=== PATIENT | female | born 2000 | race Caucasian/White ===

== ENCOUNTER 2019-08-09 08:26 | Emergency (ER) | payer MEDICAID, SELFPAY ==
[2019-08-09] VITALS (7 sets, daily range): BP systolic 110–130; BP diastolic 63–87; PULSE 59–89; RESP 16–18; O2SAT 100
--- NOTE | 2019-08-09 08:29 | ED.NAVMDI ---
HPI - Nausea/Vomiting/Diarrhea General Chief complaint: Nausea/Vomiting/Diarrhea Stated complaint: vomiting Time Seen by Provider: 08/09/19 08:29 History of Present Illness HPI Narrative: 19 yo female w/ h/o bicuspid aortic valve presents with nausea and vomiting. She reports feeling nauseated for the past 3 days. Started vomiting this morning. This is associated with a feeling of pressure in the lower abdomen. These are new symptoms. No fever, dysuria, hematuria, vaginal discharge. Related Data Allergies Allergy/AdvReac Type Severity Reaction Status Date / Time latex Allergy Unknown Verified 08/09/19 08:36 Review of Systems Review of Systems: All systems reviewed & are unremarkable except as noted in HPI and below Constitutional: Constitutional: Denies fever(s) Cardiovascular: Cardiovascular: Denies chest pain Respiratory: Respiratory: Denies dyspnea Gastrointestinal: Gastrointestinal: Reports constipation, Reports nausea and Reports vomiting Genitourinary: Genitourinary: Denies hematuria, Denies dysuria and Denies vaginal discharge Neurologic: Denies dizziness and Denies weakness PMFSH Past Medical History Medical History (Updated 08/09/19 @ 10:29 by Stuart Gabriel MD) Bicuspid aortic valve Social History Social History (Updated 08/09/19 @ 08:45 by Stuart Gabriel MD) Smoking status: Never smoker Gender identity (if verbalized by the patient): Female Exam Const: General: healthy appearing, no acute distress and alert Nutritional Appearance: well nourished Orientation/consciousness: patient oriented x3 HENMT: Head: normal to inspection Resp: Effort & Inspection: normal respiratory effort Auscultation: clear to auscultation bilaterally, no rales, no rhonchi and no wheezes Cardio: Jugular venous distension: no JVD Rate: regular rate Rhythm: regular rhythm Heart sounds: Murmur heart sound present systolic GI: Inspection: non-distended GI Palp: Yes Soft to palpation and No Tenderness to palpation present (GI) Auscultation: normal bowel sounds Skin: General skin exam: normal color Neuro: General: patient oriented x3, moves all extremities and CN's II-XI intact bilaterally Speech: normal speech Extrem: General: normal to inspection Psych: Appearance: well kempt Affect: Anxious affect present Course Vital Signs Vital signs: Vital Signs Pulse Rate 89 08/09/19 08:31 Respiratory Rate 18 08/09/19 08:31 Blood Pressure 118/87 08/09/19 08:31 Pulse Oximetry 100 08/09/19 08:31 Pulse Rate 59 L 08/09/19 10:35 Respiratory Rate 16 08/09/19 10:35 Blood Pressure 110/70 08/09/19 10:35 Pulse Oximetry 100 08/09/19 10:35 MDM - Nausea/Vomiting/Diarrhea MDM Narrative Medical decision making narrative: Feeling beter. Lab Data Result diagrams: 08/09/19 08:38 08/09/19 08:38 Labs: Lab Results 08/09/19 08/09/19 08/09/19 Range/Units 08:38 08:38 08:38 WBC 7.0 (4.5-10.0) K/mm3 RBC 4.72 (4.2-5.4) M/mm3 Hgb 14.3 (12.0-15.0) g/dL Hct 42.8 (37.0-47.0) % MCV 90.7 (80-100) fl MCH 30.3 (26-34) pg MCHC 33.4 (32-36) g/dl RDW 12.8 (11.5-14.5) % Plt Count 175 (150-375) k/mm3 MPV 11.7 H (7.4-10.4) fl Immature Gran % (Auto) 0.3 (0-0.5) % Neut % (Auto) 45.4 L (45.5-73.1) % Lymph % (Auto) 44.4 H (18.3-44.2) % [place] % (Auto) 9.1 H (2.6-8.5) % Eos % (Auto) 0.7 (0-4.4) % Baso % (Auto) 0.1 L (0.2-1.2) % Lymph # (Auto) 3.12 (0.9-3.2) K/mm3 [place] # (Auto) 0.6 (0.1-0.6) K/mm3 Eos # (Auto) 0.1 (0-0.3) K/mm3 Baso # (Auto) 0.0 (0.0-0.1) K/mm3 Abs Immat Gran (auto) 0.02 (0.00-0.031) K/mm3 Absolute Neuts (auto) 3.2 (1.3-6.7) K/mm3 Absolute Nucleated RBC 0.0 (0.0-0.012) K/mm3 Nucleated RBC % 0.0 (0.0-0.2) % Sodium 139 (137-145) mmol/L Potassium 4.3 (3.4-5.0) mmol/L Chloride 107 (98-107) mmol/L Carbon Dioxide 23 (22-30
[2019-08-09 08:46] LABS: Basophils Percent Auto 0.1 % (0.2-1.2); Eosinophils Absolute Auto 0.1 K/mm3 (0-0.3); Eosinophils Percent Auto 0.7 % (0-4.4); Hematocrit 42.8 % (37.0-47.0); Hemoglobin 14.3 g/dL (12.0-15.0); Immature Granulocyte Absolute 0.02 K/mm3 (0.00-0.031); Immature Granulocyte Percent A 0.3 % (0-0.5); Lymphocytes Absolute Auto 3.12 K/mm3 (0.9-3.2); Lymphocytes Percent Auto 44.4 % (18.3-44.2); Mean Corpuscular HGB Conc 33.4 g/dl (32-36); Mean Corpuscular Hemoglobin 30.3 pg (26-34); Mean Corpuscular Volume 90.7 fl (80-100); Mean Platelet Volume 11.7 fl (7.4-10.4); Monocytes Absolute Auto 0.6 K/mm3 (0.1-0.6); Monocytes Percent Auto 9.1 % (2.6-8.5); Neutrophils Absolute Auto 3.2 K/mm3 (1.3-6.7); Neutrophils Percent Auto 45.4 % (45.5-73.1); Platelet Count Result 175 k/mm3 (150-375); Red Blood Count 4.72 M/mm3 (4.2-5.4); Red Cell Distribution Width 12.8 % (11.5-14.5)
[2019-08-09] MEDS: ONDANSETRON INJ 4 MG/2 ML VIAL IV PUSH (08:48)
[2019-08-09] MEDS: SODIUM CHLORIDE 0.9% IV 1,000 ML 999 ML IV CONT (08:48)
[2019-08-09 08:50] LABS: Add Urine Microscopic? YES; Appearance Urine Clear (Clear); Bacteria Urine Trace /hpf; Bilirubin Urine Negative (Negative); Blood Urine Negative (Negative); Color Urine Yellow (Yellow); Glucose Urine UA Negative (Negative); Ketones Urine Negative (Negative); Leukocyte Esterase Ur Trace LEU/UL (Negative); Mucus Urine Rare /lpf; Nitrate Urine Negative (Negative); Protein Urine Negative (Negative); RBC Urine 0-2 /hpf (0-2); Squamous Epithelial Cell Urine Many /hpf (Few); Transitional Epi Cells Urine Rare /hpf (None Seen); Urobilinogen Urine Negative mg/dL (<2.0)
[2019-08-09 08:58] LABS: Alanine Aminotransferase 11 U/L (4-35); Albumin Level 4.8 g/dL (3.5-5.1); Alkaline Phosphatase 38 U/L (38-126); Aspartate Amino Transferase 20 U/L (14-36); Bilirubin,Total 0.4 mg/dL (0.2-1.3); Blood Urea Nitrogen 13 mg/dL (7-17); Calcium 9.4 mg/dL (8.4-10.2); Carbon Dioxide 23 mmol/L (22-30); Chloride 107 mmol/L (98-107); Estimated CRCL calculation 100 ml/min; Estimated Glomerular Filt Rate > 60; Glucose 106 mg/dL (65-105); Lipase 125 U/L (23-300); Potassium 4.3 mmol/L (3.4-5.0); Sodium 139 mmol/L (137-145)
--- NOTE | 2019-08-09 09:25 | PC.NURSE ---
[facility] YATES INFORMED THAT ALL RESULTS ARE BACK ON PT, STATES THAT HE WILL LOOK AT THEM.
--- NOTE | 2019-08-09 10:04 | PC.NURSE ---
PT GIVEN SALTINES AND SAIMA MIST PER BURTON YATES FOR PO CHALLENGE. CALL LIGHT AT BEDSIDE, TOLD TO HIT CALL LIGHT IF SX BEGIN TO RETURN.
== END 2019-08-09 10:36 | disposition home or self-care (01) ==
PROVIDERS: Emergency Provider Emergency Medicine
DX: R11.2 Nausea with vomiting, unspecified (principal)
CPT/HCPCS: 36415; 80053; 81001; 81025; 83690; 85025; 96361; 96374; 99284; J2405; J7030

== ENCOUNTER 2020-02-20 17:29 | Emergency (ER) | payer OTHER, SELFPAY ==
--- NOTE | ~2020-02-20 | XR_ITS ---
EXAMINATION: XR lumbar spine 2-3V EXAM DATE: 02/20/2020 18:18 INDICATION: Initial encounter following injury, with pain of the low back. Fall. TECHNIQUE: Lumber spine frontal, lateral, lateral L5-S1 projections for interpretation. There is no prior study for comparison. FINDINGS: There are no acute fractures identified. The vertebral bodies are aligned in the AP dimens ion. Vertebral body and disc heights are well-maintained. Facet joints are unremarkable, no spondylol ysis. Sacrum, sacroiliac joints, sacral arcuate lines are intact. Paraspinal soft tissue is unremarka ble. IMPRESSION: Unremarkable XR lumbar spine 2-3V exam. Reviewed, dictated and finalized at location A. [employer]CH
[2020-02-20 17:34] VITALS: BP 131/85; PULSE 83; RESP 18; TEMP 36.8; O2SAT 100
[2020-02-20] MEDS: diazePAM (*CRX) 5 MG TABLET PO (18:14)
[2020-02-20] MEDS: ACETAMINOPHEN 325 MG TABLET 650 MG PO (18:14)
--- NOTE | 2020-02-20 18:26 | ED.BACK ---
HPI - Back Pain/Injury General Chief Complaint: Back Pain/Injury <Norman Amaya PA-C - Last Filed: 02/20/20 18:38> Stated Complaint: Back Injury from Years Ago <Norman Amaya PA-C - Last Filed: 02/20/20 18:38> Time Seen by Provider: 02/20/20 17:31 <Norman Amaya PA-C - Last Filed: 02/20/20 18:38> Source: patient <Norman Amaya PA-C - Last Filed: 02/20/20 18:38> Mode of arrival: ambulatory <Norman Amaya PA-C - Last Filed: 02/20/20 18:38> Limitations: no limitations <Norman Amaya PA-C - Last Filed: 02/20/20 18:38> History of Present Illness HPI Narrative: Patient is a 20-year-old female who presents to emergency department for evaluation of left SI joint pain patient notes aching pain worse with activity and movement no she slipped on Wednesday landing on this region has history of prior injury here with history of sciatica patient notes pain now radiating down the left leg with tingling has taken ibuprofen with no improvement patient presents in no distress is able to ambulate <Norman Amaay PA-C - Last Filed: 02/20/20 18:38> Related Data Allergies/Adverse Reactions: Allergies Allergy/AdvReac Type Severity Reaction Status Date / Time latex Allergy Unknown Verified 02/20/20 17:38 <Norman Amaya PA-C - Last Filed: 02/20/20 18:38> Review of Systems Review of Systems: All systems reviewed & are unremarkable except as noted in HPI and below <Norman Amaya PA-C - Last Filed: 02/20/20 18:38> [facility] Past Medical History Medical History: Medical History Bicuspid aortic valve <Norman Amaya PA-C - Last Filed: 02/20/20 18:38> Social History Social History: Social History Smoking status: Never smoker Gender identity (if verbalized by the patient): Female <Norman Amaya PA-C - Last Filed: 02/20/20 18:38> Exam Narrative: Exam Narrative: GENERAL: Well-appearing, well-nourished, and in no acute distress. HEAD: Normocephalic, atraumatic. EYES: PERRLA and EOMI. ENT: Nares clear, no rhinorrhea or epistaxis. Mucous membranes moist CHEST: Clear to auscultation. No respiratory distress. No wheezes rales or rhonchi HEART: Regular rate and rhythm. No murmur heard. EXTREMITIES: Normal range of motion. No edema. Tenderness over the left SI joint no deformities noted no midline or right-sided tenderness SKIN: Warm, dry, no rash. NEURO: No focal deficits. Alert and oriented x3. Cranial nerves II through XII grossly intact. Motor and sensory intact and symmetrical PSYCH: Normal mood and affect. <JUAN R Abad Last Filed: 02/20/20 18:38> Course Course Emergency Course: Patient evaluated in the emergency department felt appropriate for outpatient reevaluation by primary care will be treated symptomatically with medications no high risk changes in the imaging or exam <JUAN R Abad Last Filed: 02/20/20 18:38> Vital Signs Vital signs: Vital Signs Temperature 36.8 C 02/20/20 17:34 Pulse Rate 83 02/20/20 17:34 Respiratory Rate 18 02/20/20 17:34 Blood Pressure 131/85 02/20/20 17:34 Pulse Oximetry 100 02/20/20 17:34 Temperature 36.8 C 02/20/20 17:34 Pulse Rate 83 02/20/20 17:34 Respiratory Rate 18 02/20/20 17:34 Blood Pressure 131/85 02/20/20 17:34 Pulse Oximetry 100 02/20/20 17:34 <JUAN R Abad Last Filed: 02/20/20 18:38> Vital Signs Temperature 36.8 C 02/20/20 17:34 Pulse Rate 83 02/20/20 17:34 Respiratory Rate 18 02/20/20 17:34 Blood Pressure 131/85 02/20/20 17:34 Pulse Oximetry 100 02/20/20 17:34 Temperature 36.8 C 02/20/20 17:34 Pulse Rate 83 02/20/20 17:34 Respiratory Rate 18 02/20/20 17:34 Blood Pressure 131/85 02/20/20 17:34 Pulse Oximetry 100 02/20/20 17:34 <Adri Leiva M
== END 2020-02-20 19:00 | disposition home or self-care (01) ==
PROVIDERS: Emergency Provider Emergency Medicine; PCP Family Medicine
DX: M54.42 Lumbago with sciatica, left side (principal)
CPT/HCPCS: 72100; 99283; A9270

== ENCOUNTER 2021-09-02 09:54 | Emergency (ER) | payer MEDICAID, SELFPAY ==
[2021-09-02 10:02] VITALS: BP 124/71; PULSE 50; RESP 16; TEMP 36.6; O2SAT 99
--- NOTE | 2021-09-02 10:03 | ED.DENTAL ---
HPI - Dental/Oral General Chief complaint: Skin/Abscess/Foreign Body Stated complaint: facial swelling Time Seen by Provider: 09/02/21 10:07 Source: patient Mode of arrival: ambulatory Limitations: no limitations History of Present Illness HPI Narrative: 21-year-old female presented for complaint of facial rash with associated swelling for 2 days. Endorses rash is itchy and has been spreading to the neck and chest, and left arm. She endorses working outside pulling weeds 2 days ago. She denies known contact with poison itzel, states she has had that in the past and has had severe allergic reactions. Currently denies lip, tongue, throat swelling or itching, wheezing, shortness of breath. She has not taken anything for symptoms. Related Data Allergies Allergy/AdvReac Type Severity Reaction Status Date / Time latex AdvReac Intermediate Hives Verified 09/02/21 09:57 Review of Systems Review of Systems: CONSTITUTIONAL: Denies body aches, fever, chills, or sweats. EYES: Reports bilateral eye swelling; Denies visual changes, redness, or discharge. ENT: Denies rhinorrhea, congestion, sore throat, or otalgia. CARDIOVASCULAR: Denies chest pain, palpitations, or edema. RESPIRATORY: Denies cough or dyspnea. GASTROINTESTINAL: Denies abdominal pain, nausea, vomiting, or diarrhea. SKIN: reports rash, itching MUSCULOSKELETAL: Denies back pain, joint pain, or myalgia. NEUROLOGIC: Denies headache, numbness, tingling, or weakness. [facility] Past Medical History Medical History Bicuspid aortic valve Social History Social History Smoking status: Never smoker Gender identity (if verbalized by the patient): Female Comments At time of signature, I have reviewed and agree with nursing past medical, surgical, social and family history unless otherwise noted. Please see nursing chart for further information. There is no relevant family history pertinent to the presenting complaint Exam Narrative: GENERAL: Well-appearing, no acute distress. HEAD: Normocephalic, atraumatic. EYES: Bilateral periorbital swelling and erythema; PERRLA, conjunctivae clear, and EOMI. ENT: Mucous membranes moist. Oropharynx without edema, erythema or lesions. NECK: Supple. No lymphadenopathy CHEST: Clear to auscultation. No respiratory distress. HEART: Regular rate and rhythm. SKIN: Warm, dry. Erythematous papular rash to face, neck and left forearm c/w contact dermatitits NEURO: Alert and oriented x3. PSYCH: Flat affect Course Course Emergency Course: Patient is aware of diagnosis, understands and agrees to treatment plan. Anticipatory guidance given. Patient agrees to follow-up as directed and is aware of reasons to seek care at the emergency department. Portions of this record may have been created with voice recognition software Level of Care: Express Care Visit Vital Signs Vital signs: Vital Signs Temperature 97.9 F 09/02/21 10:02 Pulse Rate 50 L 09/02/21 10:02 Respiratory Rate 16 09/02/21 10:02 Blood Pressure 124/71 09/02/21 10:02 Pulse Oximetry 99 09/02/21 10:02 Oxygen Delivery Room Air 09/02/21 10:02 Temperature 97.9 F 09/02/21 10:02 Pulse Rate 50 L 09/02/21 10:02 Respiratory Rate 16 09/02/21 10:02 Blood Pressure 124/71 09/02/21 10:02 Pulse Oximetry 99 09/02/21 10:02 Oxygen Delivery Room Air 09/02/21 10:02 Reviewed MDM - Dental/Oral MDM Narrative Medical decision making narrative: Does not appear at this time to be erythema multiforme, bullous, SJS, TEN; afebrile; appropriate for initial outpatient treatment; discussed the importance of follow-up, patient agrees No soft palate or uvula edema, no tongue, lip edema or other mucosal involvement, no respiratory compromise Instructed patient to go to nearest ER immediately for any worsening symptoms including but not limited to: fever, spread
[2021-09-02] MEDS: methylPREDNISolone SOD SUCC 125 MG VIAL IM (10:24)
[2021-09-02] MEDS: diphenhydrAMINE HCl CAP 25 MG CAPSULE PO (10:24)
[2021-09-02] MEDS: FAMOTIDINE 20 MG TABLET 40 MG PO (10:24)
== END 2021-09-02 10:37 | disposition home or self-care (01) ==
PROVIDERS: Emergency Provider Nurse Practitioner Family
DX: L23.9 Allergic contact dermatitis, unspecified cause (principal); Z86.16 Personal history of COVID-19
CPT/HCPCS: 96372; 99213; A9270; G0463; J2930

== ENCOUNTER 2021-10-05 10:15 | Emergency (ER) | payer MEDICAID, SELFPAY ==
[2021-10-05 10:23] VITALS: BP 133/86; PULSE 62; RESP 16; TEMP 36.4; O2SAT 100
--- NOTE | 2021-10-05 10:45 | ED.ABDPAIN ---
HPI - Abdominal Pain General Chief Complaint: Abdominal Pain Stated Complaint: abd pain Time Seen by Provider: 10/05/21 10:30 Source: patient Mode of arrival: ambulatory Limitations: no limitations History of Present Illness HPI narrative: Ms. Ruiz is a 21-year-old female patient presenting to the clinic today with complaints of nausea, vomiting, and left sided abdominal pain that began this morning. She reports that she has a history of an ovarian cyst and thinks that this may be bursting last bowel movement was this morning and was normal. Last menstrual period was a couple weeks ago per patient. She denies any fever or chills. Has diffuse left-sided abdominal pain rates it a 10 out of 10 and states that sharp in quality. She denies any urinary symptoms or abnormal vaginal discharge. She is sexually active. Related Data Allergies Allergy/AdvReac Type Severity Reaction Status Date / Time latex AdvReac Intermediate Hives Verified 10/05/21 10:23 Review of Systems Review of Systems: Pertinent positives per HPI. Patient denies any fever, chills, rash, headache, visual changes, dizziness, cough, runny nose, sore throat, shortness of breath, chest pain, palpitations, diarrhea, constipation,or any urinary issues. [facility] Past Medical History Medical History Bicuspid aortic valve Social History Social History Smoking status: Never smoker Gender identity (if verbalized by the patient): Female Comments At the time of my signature, I reviewed and agree with the nursing past medical, surgical, social, and family history. There is no relevant family history pertinent to the patient complaint. Exam Narrative: General: Well-developed, well nourished, in no apparent distress. Head: Normocephalic, atraumatic. Cardio: Regular rate and rhythm, s1 and s2 normal, no murmur appreciated. Resp: Clear to auscultation bilaterally, no rhonchi, rales, wheezing or rubs. Abdomen: Soft, pliable, exquisite tenderness and guarding to the left upper, left lower and over the left adnexa, bowel sounds present in all quadrants, no organomegly, no CVAT tenderness. Course Course Emergency Course: Portions of this record may have been created with voice recognition software. Level of Care: Express Care Visit Vital Signs Vital signs: Vital Signs Temperature 36.4 C L 10/05/21 10:23 Pulse Rate 62 10/05/21 10:23 Respiratory Rate 16 10/05/21 10:23 Blood Pressure 133/86 10/05/21 10:23 Pulse Oximetry 100 10/05/21 10:23 Oxygen Delivery Room Air 10/05/21 10:23 Temperature 36.4 C L 10/05/21 10:23 Pulse Rate 62 10/05/21 10:23 Respiratory Rate 16 10/05/21 10:23 Blood Pressure 133/86 10/05/21 10:23 Pulse Oximetry 100 10/05/21 10:23 Oxygen Delivery Room Air 10/05/21 10:23 Vital signs reviewed MDM - Abdominal Pain MDM Narrative Medical decision making narrative: At the time of visit patient is resting comfortably on the exam table. UA Prag was completed in the clinic and it was negative. Recommend transfer to the hospital for further evaluation for rule out rupturing ovarian cyst and patient agrees with this treatment plan. Differential Diagnosis Differential diagnosis: Likely abdominal pain, constipation, diverticulitis, gastroenteritis, pancreatitis and other (Ovarian cyst, gastritis,) Discharge Plan Discharge Clinical Impression: Left lower quadrant abdominal pain, History of ovarian cyst, Adnexal pain, Left upper quadrant abdominal pain, Nausea & vomiting Patient Disposition: Acute Care Hospital Condition: Stable Additional Instructions: You were evaluated by the provider in the Express care today, and it is recommended that you promptly go to the Emergency Room as your illness requires a higher level of care. Prescriptions: No Action epinephrine [EpiPen 2-Tony] 0.3
== END 2021-10-05 10:44 | disposition short-term general hospital (02) ==
PROVIDERS: Emergency Provider Nurse Practitioner Family
DX: R10.32 Left lower quadrant pain (principal); R10.12 Left upper quadrant pain; R11.2 Nausea with vomiting, unspecified; Z87.42 Personal history of other diseases of the female genital tract
CPT/HCPCS: 81025; 99212; G0463

== ENCOUNTER 2021-10-05 11:05 | Emergency (ER) | payer MEDICAID, SELFPAY ==
--- NOTE | ~2021-10-05 | US_ITS ---
EXAMINATION: US pelvic complete w TV DATE: 10/05/2021 12:49 INDICATION: Lower left abdominal pain. TECHNIQUE: Multiple transabdominal and endovaginal sonographic images of the pelvis were obtained. COMPARISON: None. FINDINGS: The uterus measures 7.0 x 2.8 x 3.9 cm. The endometrial complex measures 11 mm mm in thickness. Ther e are 5 small anechoic cystic structures in the region of the proximal cervix the largest measuring 6 mm maximal diameter likely representing nabothian cysts The right ovary measures 3.5 x 2.0 x 2.4 cm. The left ovary measures 2.2 x 1.6 x 1.3 cm. There are a few subcentimeter bilateral anechoic ovarian cysts/follicles. There is normal vascular flow in the ovaries. There is minimal anechoic likely phys iologic free fluid in the cul-de-sac. IMPRESSION: 1. Small amount of likely physiologic free fluid in the cul-de-sac. 2. Several subcentimeter bilateral ovarian cysts/follicles and a few subcentimeter likely nabothian c ysts at the cervix. Reviewed, dictated and finalized at location A. IMPRESSION: 1. Small amount of likely physiologic free fluid in the cul-de-sac. 2. Several subcentimeter bilateral ovarian cysts/follicles and a few subcentime ter likely nabothian cysts at the cervix.
[2021-10-05 11:06] VITALS: BP 139/81; PULSE 69; RESP 14; TEMP 36.1; O2SAT 97
[2021-10-05 11:22] LABS: Basophils Percent Auto 0.3 % (0.2-1.2); Eosinophils Absolute Auto 0.1 K/mm3 (0-0.3); Eosinophils Percent Auto 0.9 % (0-4.4); Hematocrit 42.5 % (37.0-47.0); Hemoglobin 13.8 g/dL (12.0-15.0); Immature Granulocyte Absolute 0.02 K/mm3 (0.00-0.031); Immature Granulocyte Percent A 0.3 % (0-0.5); Mean Corpuscular HGB Conc 32.5 g/dl (32-36); Mean Corpuscular Hemoglobin 30.5 pg (26-34); Mean Corpuscular Volume 93.8 fl (80-100); Mean Platelet Volume 11.5 fl (7.4-10.4); Monocytes Absolute Auto 0.8 K/mm3 (0.1-0.6); Monocytes Percent Auto 10.7 % (2.6-8.5); Neutrophils Absolute Auto 4.1 K/mm3 (1.3-6.7); Neutrophils Percent Auto 57.8 % (45.5-73.1); Platelet Count Result 182 k/mm3 (150-375); Red Blood Count 4.53 M/mm3 (4.2-5.4); Red Cell Distribution Width 13.2 % (11.5-14.5)
[2021-10-05 11:31] LABS: Alanine Aminotransferase 11 U/L (6-35); Albumin Level 4.6 g/dL (3.5-5.1); Alkaline Phosphatase 52 U/L (38-126); Anion Gap 9 mmol/L (8-16); Aspartate Amino Transferase 15 U/L (14-36); Bilirubin,Total 0.3 mg/dL (0.2-1.3); Blood Urea Nitrogen 11 mg/dL (7-17); Calcium 9.1 mg/dL (8.4-10.2); Carbon Dioxide 26 mmol/L (22-30); Chloride 106 mmol/L (98-107); Estimated CRCL calculation 89 ml/min; Estimated Glomerular Filt Rate > 60; Glucose 105 mg/dL (65-110); Lipase 75 U/L (23-300); Potassium 4.4 mmol/L (3.4-5.0); Sodium 141 mmol/L (137-145)
--- NOTE | 2021-10-05 11:35 | ED.GENADULT ---
HPI - General Adult General Chief complaint: Abdominal Pain Stated complaint: abd pain, ovarian cyst Time Seen by Provider: 10/05/21 11:12 Source: RN notes reviewed History of Present Illness HPI narrative: Patient presents emergency department from urgent care for abdominal pain. Patient states she woke this morning pain in her left lower abdomen pain is described as sharp and stabbing does not radiate. Associate with nausea and vomiting x1. States she not taking medication for the pain. She denies any fevers or chills chest pain shortness of breath diarrhea vaginal bleeding or discharge or any other symptoms Related Data Allergies Allergy/AdvReac Type Severity Reaction Status Date / Time latex AdvReac Intermediate Hives Verified 10/05/21 10:23 Review of Systems Review of Systems: Gen.: Denies fevers or chills ENT: Denies congestion Respiratory: Denies shortness of breath or cough CV: Denies chest pain or palpitations GI: See HPI denies burning, urgency, frequency or hematuria Musculoskeletal: Denies back pain or muscle pain Neuro: Denies numbness, tingling, weakness or focal weakness Skin: Denies rash Except as documented, all other systems reviewed and negative [facility] Past Medical History Medical History Bicuspid aortic valve Social History Social History Smoking status: Never smoker Gender identity (if verbalized by the patient): Female Exam Narrative: APPEARANCE: No acute distress, nontoxic, resting in bed HEENT: Normocephalic, atraumatic, OMM RESPIRATORY: No respiratory distress, clear to auscultation bilaterally with no rhonchi wheezing or rales CARDIOVASCULAR: RRR s murmur ABDOMINAL: Soft nondistended tender palpation left lower quadrant no tenderness right lower quadrant, right upper quadrant left upper quadrant no rebound or guarding MUSCULOSKELETAl: Moves all extremities. No clubbing, cyanosis or edema. NEURO: Awake and alert. Following commands, speech normal, no focal deficits SKIN:: Warm, dry. Normal Color PSYCHIATRIC: Normal affect/mood Course Course Emergency Course: Patient states that they are feeling much better at this time. States abdominal pain has resolved. Repeat abdominal exam shows the patient's abdomen to be soft and nontender. Discussed with patient results of workup and diagnosis. Discussed need for follow-up with primary care physician, reasons to return to the emergency department in proper use of medication. Patient understands and agrees to current treatment plan patient states she does have an [employer] Vital Signs Vital signs: Vital Signs Temperature 97.0 F L 10/05/21 11:06 Pulse Rate 69 10/05/21 11:06 Respiratory Rate 14 10/05/21 11:06 Blood Pressure 139/81 10/05/21 11:06 Pulse Oximetry 97 10/05/21 11:06 Oxygen Delivery Room Air 10/05/21 11:06 Temperature 97.0 F L 10/05/21 11:06 Pulse Rate 69 10/05/21 11:06 Respiratory Rate 14 10/05/21 11:06 Blood Pressure 139/81 10/05/21 11:06 Pulse Oximetry 97 10/05/21 11:06 Oxygen Delivery Room Air 10/05/21 11:06 Medical Decision Making MDM Narrative Medical decision making narrative: Patient's abdomen is soft without significant pain or signs of surgical abdomen on serial exams. Lab and x-ray evaluations are reviewed and patient is felt to be a reasonable candidate for outpatient management. Patient was instructed as to limitations of x-ray and laboratory evaluation and encouraged to return to ED or primary physician for repeat exam in 12 hours if continued or worsening pain Vital Signs Vital Signs: Vital Signs Temperature 97.0 F L 10/05/21 11:06 Pulse Rate 69 10/05/21 11:06 Respiratory Rate 14 10/05/21 11:06 Blood Pressure 139/81 10/05/21 11:06 Pulse Oximetry 97 10/05/21 11:06 Oxygen Delivery Room Air 10/05/21 11:06 Temperature 97.0 F L 10/05/21 11:
[2021-10-05 12:20] LABS: Appearance Urine Slightly Cloudy (Clear); Bilirubin Urine 1+ (Negative); Color Urine Yellow (Yellow); Glucose Urine UA Negative (Negative); Ketones Urine 1+ mg/dL (Negative); Leukocyte Esterase Ur Trace LEU/UL (Negative); Nitrate Urine Negative (Negative); Protein Urine Trace mg/dL (Negative); Urobilinogen Urine 0.2 mg/dL (<2.0); pH Urine 7.5 (5.0-9.0)
[2021-10-05 12:28] LABS: Bacteria Urine Trace /hpf; Mucus Urine Few /lpf; Squamous Epithelial Cell Urine Many /hpf (Few)
[2021-10-05 12:31] LABS: Add Urine Microscopic? YES; Blood Urine Trace-Intact (Negative)
[2021-10-05] MEDS: SODIUM CHLORIDE 0.9% IV 1,000 ML 999 ML IV CONT (12:42)
[2021-10-05] MEDS: KETOROLAC 30 MG/ML VIAL (*BKC) IV PUSH (12:43)
[2021-10-05] MEDS: ONDANSETRON INJ 4 MG/2 ML VIAL IV PUSH (12:43)
[2021-10-05] MEDS: NITROFURANTOIN MONOHYD MACROCR 100 MG CAP PO (14:05)
--- NOTE | 2021-10-05 14:11 | PC.NURSE ---
PT CURSING LOUDLY PRIOR TO DISCHARGE THAT HER PROBLEM WAS NOT SOLVED. PT STATED SHE DOESNT LIKE HER [employer] AND HAS STOPPED GOING TO HER VISITS.
--- NOTE | 2021-10-24 11:43 | PC.NURSE ---
LATE ENTRY This note is being entered to document information to the patient's record. The following information was omitted on [10/05/21], by [ Norman Nicolas RN]. NS stop time was [id number]
--- NOTE | 2021-11-01 18:59 | PC.NURSE ---
P LATE ENTRY This note is being entered to document information to the patient's record. The following information was omitted on [10/05/2021], by [john kohler]. normal saline infused zero left in container.
== END 2021-10-05 14:14 | disposition home or self-care (01) ==
PROVIDERS: Emergency Provider Emergency Medicine
DX: N83.202 Unspecified ovarian cyst, left side (principal); N83.201 Unspecified ovarian cyst, right side; N39.0 Urinary tract infection, site not specified
CPT/HCPCS: 36415; 76830; 76856; 80053; 81001; 81025; 83690; 85025; 96361; 96374; 96375; 99284; A9270; J1885; J2405; J7030

== ENCOUNTER 2022-01-20 10:53 | Emergency (ER) | payer MEDICAID, SELFPAY ==
[2022-01-20 11:49] VITALS: BP 123/73; PULSE 49; RESP 16; TEMP 35.8; O2SAT 100
--- NOTE | 2022-01-20 11:58 | ED.FEMALEGU ---
HPI - Female Genitourinary General Chief complaint: Urogenital-Female Stated complaint: vag itchy/swollen Time Seen by Provider: 01/20/22 11:58 Source: patient, RN notes reviewed and old records reviewed Mode of arrival: ambulatory Limitations: no limitations History of Present Illness HPI Narrative: 22-year-old female presents to the [facility] with swelling and excruciating pain to the vaginal area. Patient reports it started 2 hours prior to arrival. Patient is very anxious. Had applied ice to the area which helped with some of the swelling but still extremely swollen. Related Data Allergies Allergy/AdvReac Type Severity Reaction Status Date / Time tioconazole Allergy Swelling Verified 01/20/22 12:47 [From Monistat 1 (tioconazole)] latex AdvReac Intermediate Hives Verified 01/20/22 12:23 Review of Systems Review of Systems: All systems reviewed & are unremarkable except as noted in HPI and below Constitutional: Constitutional: Reports no additional constitutional complaints, Denies chills and Denies fever(s) Eyes: Eyes: Reports no additional eye complaints ENT: Reports system reviewed and no additional complaints, except as documented Cardiovascular: Cardiovascular: Reports no additional cardiovascular complaints Respiratory: Respiratory: Reports no additional respiratory complaints Gastrointestinal: Gastrointestinal: Reports no additional gastrointestinal complaints Genitourinary: Genitourinary: Reports as per HPI, Reports pelvic pain, Denies flank pain, Denies urinary incontinence and Denies vaginal discharge Musculoskeletal: Musculoskeletal: Reports no additional musculoskeletal complaints Integumentary/Breasts: Skin/Breast: Reports system reviewed and no additional complaints, except as docu Neurologic: Reports system reviewed and no additional complaints, except as documented Psychiatric: Psychiatric: Reports no additional psychiatric complaints Allergic/Immunologic: Allergic/Immunologic: Reports no additional allergic/immunologic complaints [facility] Past Medical History Medical History Bicuspid aortic valve Social History Social History Smoking status: Never smoker Gender identity (if verbalized by the patient): Female Comments At the time of my signature, I reviewed and agree with the nursing past medical, surgical, social, and family history. There is no relevant family history pertinent to the patient complaint. Exam Const: General: healthy appearing, comfortable, no acute distress, well developed, alert and well nourished Nutritional Appearance: well nourished and obese Orientation/consciousness: patient oriented x3 Limitations: no limitations HENMT: Head: normal to inspection Ears: external ears normal Face/Nose/Sinus: Normal external nose present Face and sinus: normal facial exam Mouth: Yes Normal oral and palatal mucosa present, Yes lip normal and Yes moist mucous membranes Throat: posterior oropharynx normal and uvula midline Eyes: General: appearance normal, both eyes and all related structures Conjunctivae: conjunctivae normal Pupils: Equal, round and reactive pupils present Neck: Neck: normal visual inspection, full ROM, no lymphadenopathy and no meningeal signs Chest: Chest palpation & inspection: normal inspection of the chest Resp: Effort & Inspection: normal respiratory effort and no use of accessory muscles Auscultation: clear to auscultation bilaterally, no crackles, no rales, no rhonchi and no wheezes Cardio: Rate: regular rate Rhythm: regular rhythm GI: GI Palp: Yes Soft to palpation and No Tenderness to palpation present (GI) : External Female Exam: erythema, externally tender, external swelling, No External ecchymosis (female) and No urethral discharge Back/Spine/Pelvis: Cervical Spine: cervical ROM normal and No Cervical spine tenderness
== END 2022-01-20 12:08 | disposition short-term general hospital (02) ==
PROVIDERS: Emergency Provider Nurse Practitioner
DX: N90.89 Other specified noninflammatory disorders of vulva and perineum (principal)
CPT/HCPCS: 99212; G0463

== ENCOUNTER 2022-01-20 12:21 | Emergency (ER) | payer MEDICAID, SELFPAY ==
[2022-01-20 12:42] VITALS: BP 127/7; PULSE 61; RESP 16; TEMP 36.6; O2SAT 100
--- NOTE | 2022-01-20 14:44 | ED.FEMALEGU ---
HPI - Female Genitourinary General Chief complaint: Urogenital-Female Stated complaint: R labia swelling - sent by r/o bartholin cyst Time Seen by Provider: 01/20/22 13:24 Source: patient and old records reviewed Mode of arrival: ambulatory Limitations: no limitations History of Present Illness HPI Narrative: Patient is a 22 y/o female who presents to the ED with c/o vaginal swelling. Patient reports she first noticed pain and swelling to her L labia around 10 am this morning. Denies any issues yesterday. She reports having similar symptoms once before and determined herself to be allergic to monostat. Does report mild itching. Denies hx of bartholin cyst. Does not currently have an OBGYN. Denies any other symptoms, no fever, abdominal pain, abnormal vaginal discharge or bleeding, dysuria, hematuria. Related Data Allergies Allergy/AdvReac Type Severity Reaction Status Date / Time tioconazole Allergy Swelling Verified 01/20/22 12:47 [From Monistat 1 (tioconazole)] latex AdvReac Intermediate Hives Verified 01/20/22 12:23 Review of Systems Review of Systems: CONSTITUTIONAL: Denies fever, chills, or sweats. GASTROINTESTINAL: Denies abdominal pain, nausea, vomiting. GENITOURINARY: Reports swelling, itching, pain to the left labia minora. Denies abnormal bleeding/discharge, dysuria or hematuria. All systems reviewed & are unremarkable except as noted in HPI and below PMFSH Past Medical History Medical History Bicuspid aortic valve Surgical History Surgical History (Updated 01/20/22 @ 16:13 by Norma Vitale PA-C) No pertinent past surgical history Social History Social History Smoking status: Never smoker Gender identity (if verbalized by the patient): Female Exam Narrative: GENERAL: Well appearing, well-nourished, non-toxic, in no acute distress. HEAD: Normocephalic, atraumatic. NECK: Supple. No adenopathy, no masses. RESPIRATORY: Airway patent, respirations nonlabored. Clear to auscultation bilaterally, no rales, rhonchi, wheezing. CARDIOVASCULAR: Regular rate and rhythm without murmurs, rubs, or gallops. Peripheral pulses 2+ and equal bilaterally. ABDOMINAL: Soft, nontender, nondistended, no hepatosplenomegaly. Normoactive BS. PELVIC: Exam revealing L sided Bartholin's cyst vs. L labial minora swelling, area of swelling approx. half-dollar in size, no palpable fluctuance. TTP. No redness or erythema of cyst. Bedside US utilized and no obvious fluid collection present. MUSCULOSKELETAL: Moves all extremities. Strength/ROM intact without gross deformities. SKIN: Warm, dry, normal color. No rashes. NEURO: A&O X3. Speech clear. Cranial nerves II-XII grossly intact. Steady gait. No ataxic movements. PSYCHIATRIC: Appropriate mood and affect. Normal interaction. Course Consultations Consultation #1: Discussed case with Dr. Babb, on-call NETWORK COMMUNICATIONS ENGINEER, patient can follow-up in office. Date: 01/20/22 Vital Signs Vital signs: Vital Signs Temperature 97.9 F 01/20/22 12:42 Pulse Rate 61 01/20/22 12:42 Respiratory Rate 16 01/20/22 12:42 Blood Pressure 127/7 L 01/20/22 12:42 Pulse Oximetry 100 01/20/22 12:42 Oxygen Delivery Room Air 01/20/22 12:42 Temperature 97.9 F 01/20/22 12:42 Pulse Rate 76 01/20/22 17:06 Respiratory Rate 16 01/20/22 17:06 Blood Pressure 131/63 01/20/22 17:06 Pulse Oximetry 97 01/20/22 17:06 Oxygen Delivery Room Air 01/20/22 12:42 MDM - Female Genitourinary MDM Narrative Medical decision making narrative: Patient presented to ED with several hours of left labial swelling, sent from urgent care. Vitals stable, afebrile. Patient denying systemic infectious sx's. Exam showing Bartholin cyst versus simple labial swelling. Does not appear acutely infected. Tender to palpation, but no warmth or erythema. No palpable fluctuanc
[2022-01-20 15:58] LABS: Appearance Urine Slightly Cloudy (Clear); Bilirubin Urine Negative (Negative); Blood Urine Negative (Negative); Color Urine Yellow (Yellow); Glucose Urine UA Negative (Negative); Ketones Urine 2+ mg/dL (Negative); Leukocyte Esterase Ur Negative LEU/UL (Negative); Nitrate Urine Negative (Negative); Protein Urine Negative (Negative); Urobilinogen Urine 0.2 mg/dL (<2.0)
[2022-01-20 16:04] LABS: Bacteria Urine Trace /hpf; Mucus Urine Rare /lpf; RBC Urine 0-2 /hpf (0-2); Squamous Epithelial Cell Urine Moderate /hpf (Few); WBC Urine 0-3 /hpf
[2022-01-20 16:06] LABS: Add Urine Microscopic? YES
[2022-01-20 17:06] VITALS: BP 131/63; PULSE 76; RESP 16; O2SAT 97
== END 2022-01-20 17:21 | disposition home or self-care (01) ==
PROVIDERS: Physician Assistant; Emergency Provider Emergency Medicine
DX: N76.89 Other specified inflammation of vagina and vulva (principal)
CPT/HCPCS: 81001; 99283

== ENCOUNTER 2022-06-17 14:40 | Emergency (ER) | payer MEDICAID, SELFPAY ==
[2022-06-17 14:45] VITALS: BP 119/76; PULSE 65; RESP 16; TEMP 36.9; O2SAT 99
--- NOTE | 2022-06-17 15:03 | ED.FEMALEGU ---
HPI - Female Genitourinary General Chief complaint: Urogenital-Female Stated complaint: Vaginal Problems Time Seen by Provider: 06/17/22 15:03 Source: patient and RN notes reviewed Mode of arrival: ambulatory Limitations: no limitations History of Present Illness HPI Narrative: 22-year-old female presented for complaint of painful well to the vaginal area, worsening over the past few days. She states today to while using the bathroom she felt something ?hanging out.? She rates pain 7/10. Pain worse with walking or any movements. Endorses associated dyspareunia. LMP 05/20/22. Endorses 'pain on ovaries' for a couple of days stating she has cysts on the ovaries. Denies vaginal bleeding, abnormal discharge, or itching. Denies urinary complaints, n/v/d/f/c. Endorses history of swollen Bartholin cyst 01/2022. 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 States she received an unknown shot and did not follow up with Obgyn. Related Data Home Medications Medication Instructions Recorded Confirmed Prilosec 06/17/22 Allergies Allergy/AdvReac Type Severity Reaction Status Date / Time tioconazole Allergy Swelling Verified 06/17/22 14:44 [From Monistat 1 (tioconazole)] latex AdvReac Intermediate Hives Verified 06/17/22 14:44 Review of Systems Review of Systems: CONSTITUTIONAL: Denies body aches, fever, chills, or sweats. CARDIOVASCULAR: Denies chest pain, palpitations, or edema. RESPIRATORY: Denies cough or dyspnea. GASTROINTESTINAL: Denies abdominal pain, nausea, vomiting, or diarrhea. GENITOURINARY: per HPI; Denies dysuria, frequency, urgency, hematuria, flank pain SKIN: Denies rash, itching, or wounds. MUSCULOSKELETAL: Denies back pain or myalgia. [facility] Past Medical History Medical History Bicuspid aortic valve Surgical History Surgical History No pertinent past surgical history Social History Social History Smoking status: Never smoker Gender identity (if verbalized by the patient): Female Comments At time of signature, I have reviewed and agree with nursing past medical, surgical, social and family history unless otherwise noted. Please see nursing chart for further information. There is no relevant family history pertinent to the presenting complaint Exam Narrative: GENERAL: Well-appearing and in no acute distress. EYES: EOMI. . ENT: Mucous membranes pink and moist. CHEST: No respiratory distress. Clear to auscultation. HEART: Regular rate and rhythm. ABDOMEN: Soft, nontender, nondistended, normal active bowel sounds. No CVA tenderness : Right inner labia with approx 2cm subcutaneous nodule, tender, no fluctuance; without external discharge/bleeding, no erythema or bruising. Unable to tolerate speculum exam due to pain at the site. Chaperoned by Carline THORNTON MUSCULOSKELETAL: No bony tenderness. SKIN: Warm, dry, no rash. NEURO: No focal deficits. Alert and oriented x3. Gait steady. PSYCH: flat affect Course Course Emergency Course: Patient is aware of diagnosis, understands and agrees to treatment plan. Anticipatory guidance given. Patient agrees to follow-up as directed and is aware of reasons to seek care at the emergency department. Portions of this record may have been created with voice recognition software Level of Care: Express Care Visit Vital Signs Vital signs: Vital Signs Temperature 98.4 F 06/17/22 14:45 Pulse Rate 65 06/17/22 14:45 Respiratory Rate 16 06/17/22 14:45 Blood Pressure 119/76 06/17/22 14:45 Pulse Oximetry 99 06/17/22 14:45 Oxygen Delivery Room Air 06/17/22 14:45 Temperature 98.4 F 06/17/22 14:45 Pulse Rate 65 06/17/22 14:45 Respiratory Rate 16 06/17/22 14:45 Blood Pressure 119/76 06/17/22 14:45 Pulse Oximetry 99
--- NOTE | 2022-06-17 15:20 | PC.NURSE ---
in br to obtain a ua spec. pelvic exam set up at bedside.
--- NOTE | 2022-06-17 15:43 | PC.NURSE ---
pelvic exam done by account relationship manager with rn at bedside. no cx obtained at this time. pain to inner right vag. area.
== END 2022-06-17 16:05 | disposition home or self-care (01) ==
PROVIDERS: Emergency Provider Nurse Practitioner Family
DX: N90.60 Unspecified hypertrophy of vulva (principal)
CPT/HCPCS: 81003; 81025; 99214; G0463

== ENCOUNTER 2022-09-18 01:29 | Day surgery (SDC) | payer MEDICAID, SELFPAY ==
[2022-09-15 12:47] VITALS: BMI 30.1
--- NOTE | 2022-09-15 12:52 | PC.NURSE ---
Report to the Outpatient Waiting Room, entrance under the green pavilion located off [facility], at time 0800 on date 09/18/22. Planned Procedure Time: 1000. Time changes happen often and if your time is changed the preop area will call you the afternoon before. - You and your visitor will be asked to self-screen and do not enter if you have any COVID symptoms. - A mask is optional within the hospital at this time. Patients may have clear liquids (water, carbonated beverages, clear teas, apple juice) until 3 hours prior to surgery with a maximum of 20 ounces. - No food from midnight until time of surgery Take the following medications with a SIP of water the morning of surgery: N/A DO NOT STOP ANY OF YOUR OTHER PRESCRIPTION MEDICATIONS PRIOR TO SURGERY ?EXCEPT THE FOLLOWING Medications to discontinue per physician: N/A Date to take last dose: N/A Please no make-up, nail urdu, hairspray, perfume, deodorant, or body powder the day of surgery. No jewelry (including any body piercings) or valuables the day of surgery, leave them at home. Please take a shower or bath the night before, or the morning of, surgery with an antibacterial soap. Wear comfortable, loose fitting clothing. - Jewelry must be removed prior to entering the operating room. Rings and piercings that are not removed may be cut off. - The hospital will not accept responsibility for valuables. - Please leave all valuables, including medications, at home the day of surgery. If you are going home after surgery, a licensed personal driver must drive you home. - NO public transportation without another adult if you receive anesthesia. - We recommend that an adult stay with you for 24 hours following discharge. - We also recommend that you do not drive, make important decision, drink alcoholic beverages, or take any drugs that were not prescribed by your health care provider for at least 24 hours after your discharge time. Follow any additional instructions given to you from your surgeon. If you or anyone in your household have experienced Covid symptoms in the past week, please notify your surgeon or the nurse liaison at the phone number below for possible testing. Telephone instructions given to PT - NAEL GRIJALVA and asked if any additional questions and then verbalized understanding. Patient advised to call surgeon office or pre surgery nurse liaison [phone] if any additional questions.
--- NOTE | 2022-09-17 07:26 | P.HP_ITS ---
H&P: HPI History of Present Illness Date/Time: 09/17/22 07:26 Chief Complaint: recurrent right Bartholin cyst Narrative: is a 22-year-old female with recurrent Bartholin cyst. Apresoline the appears sterilized after multiple treatments. Patient will undergo marsupialization was performed gland risks and benefits reviewed in great detail [facility] Past Medical History Medical History Bicuspid aortic valve Surgical History Surgical History No pertinent past surgical history Social History Social History Years smoked: 4 Smoking status: Current every day smoker Tobacco type: cigarettes Alcohol intake: current Drinks per week: 3 Substance use: current Substance use type: marijuana Living arrangements: with friend(s) Additional living arrangements comments: BOYFRIEND Gender identity (if verbalized by the patient): Female Spiritual care concerns: No Meds Home Medications and Allergies Home Medications Medication Instructions Recorded Confirmed Type No Home Medications 09/15/22 09/15/22 History Allergies Allergy/AdvReac Type Severity Reaction Status Date / Time tioconazole Allergy Swelling Verified 09/15/22 12:46 [From Monistat 1 (tioconazole)] latex AdvReac Intermediate Hives Verified 09/15/22 12:46 Exam Const: General: cooperative, healthy appearing and comfortable Nutritional Appearance: average body habitus Orientation/consciousness: oriented to person, oriented to place and oriented to time HENMT: Head: normal to inspection Resp: Effort & Inspection: normal respiratory effort Cardio: Rate: regular rate Rhythm: regular rhythm Heart sounds: S1 normal heart sound present and S2 normal heart sound present GI: Inspection: normal to inspection : Speculum Exam - Vagina: normal appearance of the vagina ( enlarged Bartholin gland) Speculum Exam - Cervix: normal appearance of the cervix Bimanual exam- vagina & uterus: non-tender Bimanual Exam- Adnexa, other: normal adnexae Assessment and Plan Assessment and plan (1) Bartholin's gland abscess: Code(s): N75.1 - Abscess of Bartholin's gland Status: Acute Plan marsupialization of Bartholin gland
[2022-09-18] VITALS (8 sets, daily range): BP systolic 108–147; BP diastolic 54–83; PULSE 42–67; RESP 12–16; TEMP 36–36.4; O2SAT 99–100; BMI 30.7
--- NOTE | 2022-09-18 00:04 | WPDHPUPDATE1 ---
History and Physical Update Update Date/Time: 09/18/22 00:04 History and Physical has been reviewed, including an updated exam of the patient. There are NO changes in the patient's condition. Risks, benefits, and alternatives have been discussed and questions answered. Patient agrees to proceed with procedure.
--- NOTE | 2022-09-18 09:31 | WPDANESEPPF ---
Anes - Initial Pre Proc Eval Procedure: Operation Date: 09/18/22 10:45 Proposed Procedures p Marsupialization of Bartholin Gland - Darrell Sanchez MD Date/Time: 09/18/22 09:31 Surgeon: Darrell Sanchez MD Pre Op Diagnosis: Abscess of Bartholin Gland Patient Data Age: 22 Gender: F Height: 1.6 m Weight: 78.85 kg Last Vital Signs Temp 36.4 C L 09/18/22 09:05 Pulse 58 L 09/18/22 09:05 Resp 16 09/18/22 09:05 BP 136/78 09/18/22 09:05 Pulse Ox 100 09/18/22 09:05 O2 Del Method Room Air 09/18/22 09:05 Allergies Allergy/AdvReac Type Severity Reaction Status Date / Time tioconazole Allergy Swelling Verified 09/18/22 09:14 [From Monistat 1 (tioconazole)] latex AdvReac Intermediate Hives Verified 09/18/22 09:14 Home Medications Medication Instructions Recorded Confirmed Type hydrocodone 5 mg-acetaminophen 325 1 tablet PO Q4H PRN pain #20 tabs 09/18/22 Rx mg tablet Patient hx anesthesia problems: none Family hx anesthesia problems: none Results Review: All pre-operative results and documents have been reviewed as part of the pre-operative evaluation. [facility] Past Medical History Medical History Bicuspid aortic valve Surgical History Surgical History No pertinent past surgical history Social History Social History Years smoked: 4 Smoking status: Current every day smoker Tobacco type: cigarettes Alcohol intake: current Drinks per week: 3 Substance use: current Substance use type: marijuana Living arrangements: with friend(s) Additional living arrangements comments: BOYFRIEND Gender identity (if verbalized by the patient): Female Spiritual care concerns: No Anes - Eval Final PreProcedure Day of Procedure 09/18/22 09:31 Patient weight: overweight Heart: regular rate and rhythm Lungs: clear to auscultation Airway: Mallampati scale class II Neurological: alert and oriented Last oral intake: >/= 8 hours ASA classification: II Emergent: no Anesthetic plan: proceed Anesthesia type and monitoring: general LMA and standard monitoring Results Review: All pre-operative results and documents have been reviewed as part of the pre-operative evaluation. Informed Consent: The patient's anesthetic plan and its attendant risks and benefits were discussed with the patient/family/POA. Questions were solicited and answers provided to the satisfaction of the patient/family/POA.
[2022-09-18] MEDS: LACTATED RINGERS 1,000 ML 30 ML IV CONT (09:35)
[2022-09-18] MEDS: ACETAMINOPHEN 500 MG TABLET 1000 MG PO (09:40)
[2022-09-18] MEDS: LIDOCAINE HCL 1% LOCAL INJ 20 ML VIAL 10 ML INFILTRATE (11:04)
--- NOTE | 2022-09-18 11:15 | W.PM.PROC2 ---
Procedure Note - Detailed Date of Procedure 09/18/22 Pre-op Diagnosis Abscess of Bartholin Gland Post-op Diagnosis Same Procedure Performed Excision of Bartholin cyst and marsupialization Surgeon Darrell Sanchez MD Anesthesia General and Local Indications a 22-year-old female with recurrent Bartholin's gland abscesses. Findings Moderate size Bartholin's gland with non infected material in it. Description of Procedure Patient was prepped draped in normal sterile fashion placed in dorsal lithotomy position. Under excellent LMA anesthesia the skin was instilled with lidocaine superficially. A linear incision was made inside the via vagina over the lesion. A moderate-sized Joann 1 gland was noted. It actually easily was removed from its base. By blunt and sharp dissection. The after the gland was removed. The area below was cauterized. A circumferential suture was placed to marsupialize the remaining portion. Blood loss was estimated 5cc. All sponge needle instrument counts were correct. There were no complications Estimated Blood Loss 5 Drains No Packing No Pathology Yes Complications No immediate complications Condition Stable Disposition PACU
[2022-09-18] MEDS: fentaNYL CITRATE INJ (*CRX) 100 MCG/2 ML VIAL 25 MCG IV PUSH ×2 (11:44→11:46)
[2022-09-18] MEDS: oxyCODONE HCL (*CRX) 5 MG TAB IR PO (12:47)
== END 2022-09-18 13:26 | disposition home or self-care (01) ==
PROVIDERS: Visit Provider Obstetrics & Gynecology
PROC: (CPT 56440; principal; 2022-09-18 10:45)
DX: N75.0 Cyst of Bartholin's gland (principal); F17.210 Nicotine dependence, cigarettes, uncomplicated
CPT/HCPCS: 56740; 88305; A9270; J1100; J2250; J2405; J2704; J3010; J7120

== ENCOUNTER 2023-01-08 16:56 | Emergency (ER) | payer MEDICAID, SELFPAY ==
[2023-01-08 17:07] VITALS: BP 113/78; PULSE 61; RESP 14; TEMP 36.6; O2SAT 100
[2023-01-08 19:00] LABS: Appearance Urine Cloudy (Clear); Bacteria Urine 3+ /hpf; Bilirubin Urine Negative (Negative); Blood Urine Negative (Negative); Color Urine Yellow (Yellow); Glucose Urine UA Negative (Negative); Hyaline Casts Urine Present /lpf; Ketones Urine Trace mg/dL (Negative); Leukocyte Esterase Ur 1+ LEU/UL (Negative); Nitrate Urine Negative (Negative); Protein Urine Negative (Negative); Squamous Epithelial Cell Urine Few /hpf (Few); Urobilinogen Urine 0.2 mg/dL (<2.0)
[2023-01-08 19:02] LABS: Add Urine Microscopic? YES
--- NOTE | 2023-01-08 19:17 | ED.FEMALEGU ---
HPI - Female Genitourinary General Chief complaint: Urogenital-Female Stated complaint: UTI Time Seen by Provider: 01/08/23 19:03 History of Present Illness HPI Narrative: Patient is a 22-year-old female, here with urinary symptoms. Patient states that over the last 3-4 days she has been having increased urinary frequency, dysuria and a subjective fever at home. She has been having some chronic ongoing vaginal discharge that has been present since a Bartholin abscess surgery a couple of months ago. She does note negative STI testing at that time and only has one, monogamous sexual partner with no concerns of STI. of note her last menstrual period was approximately 10/8 and she did take several home test about a week ago which were faintly positive. She denies any vaginal bleeding. 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 She has an OBGYN appointment scheduled for 01/18 at which time they plan to do additional testing and ultrasound. She denies any GI symptoms. Related Data Allergies Allergy/AdvReac Type Severity Reaction Status Date / Time tioconazole Allergy Swelling Verified 09/18/22 09:14 [From Monistat 1 (tioconazole)] latex AdvReac Intermediate Hives Verified 09/18/22 09:14 Review of Systems Review of Systems: All systems reviewed & are unremarkable except as noted in HPI and below PMFSH Past Medical History Medical History Bicuspid aortic valve Surgical History Surgical History No pertinent past surgical history Social History Social History Years smoked: 4 Smoking status: Current every day smoker Tobacco type: cigarettes Alcohol intake: current Drinks per week: 3 Substance use: current Substance use type: marijuana Living arrangements: with friend(s) Additional living arrangements comments: BOYFRIEND Gender identity (if verbalized by the patient): Female Spiritual care concerns: No Exam Narrative: GENERAL: Well-appearing, well-nourished, and in no acute distress. HEAD: Normocephalic, atraumatic. EYES: PERRLA and EOMI. ENT: Nares clear. Mucous membranes moist. NECK: Supple. CHEST: Clear to auscultation. No respiratory distress. HEART: Regular rate and rhythm. Normal peripheral pulses. ABDOMEN: Soft, nontender, nondistended. Suprapubic tenderness, no rebound or guarding. EXTREMITIES: Normal range of motion. No edema. SKIN: Warm, dry, no rash. NEURO: No focal deficits. Alert and oriented x3. PSYCH: Normal mood and affect. Course Course Emergency Course: Chart review performed. Patient here with UTI symptoms for 3 days and low grade fever. She additionally believes she could be 3-5 weeks . Patient seen evaluated, in no acute distress, nontoxic appearing, afebrile here. UA consistent with UTI. Given subjective fevers at home plan to treat with high-dose Keflex for possible pyelonephritis. I did discuss negative test with patient here in the emergency department. I did offer additional serum testing as well as serum lab work and STI testing. She would like to defer this for her OBGYN. She is advised she can return at any time if symptoms worsen for additional testing. The results of pertinent diagnostic studies and exam findings were discussed. The patient?s provisional diagnosis and plan of care were discussed with the patient and present family. The patient and/or present family expressed understanding of the diagnosis and plan. The nurse was instructed to provide written instructions and appropriate follow-up information. The patient understands their need and responsibility to obtain additional follow-up as instructed. The risks of medications administered and prescribed were discussed with the patient and family present. Vital Signs Vit
[2023-01-08] MEDS: CEPHALEXIN 500 MG CAPSULE PO (20:16)
== END 2023-01-08 20:17 | disposition home or self-care (01) ==
PROVIDERS: Physician Assistant; Emergency Provider Student in an Organized Health Care Education/Training Program
DX: N39.0 Urinary tract infection, site not specified (principal); F17.210 Nicotine dependence, cigarettes, uncomplicated
CPT/HCPCS: 81001; 81025; 87086; 87088; 99283; A9270

== ENCOUNTER 2023-04-30 13:53 | Outpatient (CLI) | payer MEDICAID, SELFPAY ==
--- NOTE | ~2023-04-30 | US_ITS ---
EXAMINATION: US pelvic complete w TV DATE: 04/30/2023 14:48 INDICATION: Pelvic pain TECHNIQUE: Multiple transabdominal and endovaginal sonographic images of the pelvis were obtained. COMPARISON: None. FINDINGS: The uterus measures 7.1 x 3.1 x 4.1 cm. The endometrial complex measures 12 mm in thickness. Again s een are at least 3 small anechoic nabothian cysts at the cervix measuring up to 4 mm. The right ovary measures 3.4 x 3.2 x 2.6 cm. The left ovary measures 3.0 x 2.1 x 1.9 cm. 1.3 cm cyst versus dominant follicle at the left ovary with a couple subcentimeter follicles at the right ovary. Vascular flow i dentified at both ovaries on color Doppler. There is no free fluid in the pelvis. IMPRESSION: 1. No interval change in a few small bilateral ovarian cysts/follicles, the largest on the left measu ring 1.3 cm and a few subcentimeter likely nabothian cysts at the cervix. Reviewed, dictated and finalized at location [facility]. [facility] IMPRESSION: 1. No interval change in a few small bilateral ovarian cysts/follicles, the lar gest on the left measuring 1.3 cm and a few subcentimeter likely nabothian cyst s at the cervix.
== END 2023-04-30 13:54 | disposition home or self-care (01) ==
LOC: ANHIMG 13:54
PROVIDERS: Visit Provider Obstetrics & Gynecology
DX: N83.202 Unspecified ovarian cyst, left side (principal); N83.201 Unspecified ovarian cyst, right side
CPT/HCPCS: 76830; 76856

== ENCOUNTER 2023-05-20 00:21 | Day surgery (SDC) | payer MEDICAID, SELFPAY ==
[2023-05-12 13:54] VITALS: BMI 25.5
--- NOTE | 2023-05-12 13:57 | PC.NURSE ---
Report to the Outpatient Waiting Room, entrance under the green pavilion located off [facility], at time _0600_ on date _[phone]_. Planned Procedure Time: _0730_. Time changes happen often and if your time is changed the preop area will call you the afternoon before. - You and your visitor will be asked to self-screen and do not enter if you have any COVID symptoms. - A mask is optional within the hospital at this time. Patients may have clear liquids (water, carbonated beverages, clear teas, apple juice) until 3 hours prior to surgery with a maximum of 20 ounces. - No food from midnight until time of surgery Take the following medications with a SIP of water the morning of surgery: ___None DO NOT STOP ANY OF YOUR OTHER PRESCRIPTION MEDICATIONS PRIOR TO SURGERY ?EXCEPT THE FOLLOWING Medications to discontinue per physician None Date to take last dose Please no make-up, nail martiniquais, hairspray, perfume, deodorant, or body powder the day of surgery. No jewelry (including any body piercings) or valuables the day of surgery, leave them at home. Please take a shower or bath the night before, or the morning of, surgery with an antibacterial soap. Wear comfortable, loose fitting clothing. - Jewelry must be removed prior to entering the operating room. Rings and piercings that are not removed may be cut off. - The hospital will not accept responsibility for valuables. - Please leave all valuables, including medications, at home the day of surgery. If you are going home after surgery, a licensed haul driver must drive you home. - NO public transportation without another adult if you receive anesthesia. - We recommend that an adult stay with you for 24 hours following discharge. - We also recommend that you do not drive, make important decision, drink alcoholic beverages, or take any drugs that were not prescribed by your health care provider for at least 24 hours after your discharge time. Follow any additional instructions given to you from your surgeon. If you or anyone in your household have experienced Covid symptoms in the past week, please notify your surgeon or the nurse liaison at the phone number below for possible testing. Telephone instructions given to __Tana___and asked if any additional questions and then verbalized understanding. Patient advised to call surgeon office or pre surgery nurse liaison [phone] if any additional questions.
--- NOTE | 2023-05-19 06:47 | PM.IMHP ---
H&P: HPI History of Present Illness Date/Time: 05/19/23 06:47 Chief Complaint: Pelvic pain Narrative: 23-year-old G0 with pelvic pain and dyspareunia. She has strong family history of endometriosis and underwent imaging which was unhelpful. She is admitted for diagnostic laparoscopy. Risks and benefits reviewed including but not exclusive of , aspiration ligament bleeding, transfusion, perforation injury to bowel, bladder, ureters, or other internal organs with need for open laparotomy. She received the [employer]COG handout entitled laparoscopy. She had all questions answered to her satisfaction. She asked to proceed PMFSH Past Medical History Medical History Bicuspid aortic valve Surgical History Surgical History No pertinent past surgical history Social History Social History Years smoked: 6 Smoking status: Current every day smoker Tobacco type: cigarettes Alcohol intake: current Drinks per week: 3 Substance use: current Substance use type: marijuana Living arrangements: with family Additional living arrangements comments: BOYFRIEND Gender identity (if verbalized by the patient): Female Spiritual care concerns: No Meds Home Medications and Allergies Home Medications Medication Instructions Recorded Confirmed Type No Home Medications 05/12/23 05/12/23 History Allergies Allergy/AdvReac Type Severity Reaction Status Date / Time tioconazole Allergy Swelling Verified 05/12/23 13:49 [From Monistat 1 (tioconazole)] latex AdvReac Intermediate Hives Verified 05/12/23 13:49 Exam Const: General: cooperative, healthy appearing and comfortable Nutritional Appearance: average body habitus Orientation/consciousness: oriented to person, oriented to place and oriented to time Resp: Effort & Inspection: normal respiratory effort Cardio: Rate: regular rate Rhythm: regular rhythm Heart sounds: S1 normal heart sound present and S2 normal heart sound present GI: Inspection: normal to inspection : External Female Exam: normal external appearance Speculum Exam - Vagina: normal appearance of the vagina Speculum Exam - Cervix: normal appearance of the cervix Bimanual exam- vagina & uterus: Cervical tenderness present and Uterine tenderness Bimanual Exam- Adnexa, other: tender bilaterally Assessment and Plan Assessment and plan (1) Pelvic pain: Code(s): R10.2 - Pelvic and perineal pain Status: Acute Plan diagnostic laparoscopy
--- NOTE | 2023-05-20 05:32 | WPDHPUPDATE1 ---
History and Physical Update Update Date/Time: 05/20/23 05:32 History and Physical has been reviewed, including an updated exam of the patient. There are NO changes in the patient's condition. Risks, benefits, and alternatives have been discussed and questions answered. Patient agrees to proceed with procedure.
[2023-05-20 06:33] VITALS: BP 123/70; PULSE 71; RESP 16; TEMP 36.2; O2SAT 100
--- NOTE | 2023-05-20 06:42 | ECG_ITS ---
Measurements Intervals [place] Rate: 45 P: -21 RI: 196 QRS: -27 QRSD: 105 T: 260 QT: 500 QTc: 436 Interpretive Statements SLOW SINUS BRADYCARDIA ATRIAL PREMATURE COMPLEXES INCOMPLETE RIGHT BUNDLE BRANCH BLOCK CONSIDER ANTERIOR INFARCT, AGE INDETERMINATE INFERIOR INFARCT, AGE INDETERMINATE BASELINE ARTIFACT- I, II, III, AVF, V3 ABNORMAL ECG NO PREVIOUS ECG AVAILABLE FOR COMPARISON Electronically Signed On 05-20-2023 8:46:14 CDT by Bertrand Garcia D.O.
[2023-05-20] MEDS: LACTATED RINGERS 1,000 ML 30 ML IV CONT (06:50)
[2023-05-20] MEDS: KETOROLAC 15 MG/ML VIAL (*BKC) IV PUSH (06:58)
[2023-05-20] MEDS: ACETAMINOPHEN 500 MG TABLET 1000 MG PO (06:58)
--- NOTE | 2023-05-20 07:30 | P.HPUP_ITS ---
History and Physical Update Update Date/Time: 05/20/23 07:30 History and Physical has been reviewed, including an updated exam of the patient. There are NO changes in the patient's condition. Risks, benefits, and alternatives have been discussed and questions answered. Patient agrees to proceed with procedure. abnormal ekg findings case canceled and patient referred to cigarette roller
--- NOTE | 2023-05-20 07:45 | SUR.PREOP ---
0713 PT UPSET ABOUT HER SURGERY BEING CANCELLED, SPEAKING LOUDLY , CURSING, LEFT WITHOUT SIGNING DISCHARGE PAPERS
== END 2023-05-20 07:34 | disposition home or self-care (01) ==
PROVIDERS: Visit Provider Obstetrics & Gynecology
PROC: (CPT 49320; principal; 2023-05-20 07:30)
DX: R10.2 Pelvic and perineal pain (principal); I49.1 Atrial premature depolarization; I45.10 Unspecified right bundle-branch block; F17.210 Nicotine dependence, cigarettes, uncomplicated; F12.90 Cannabis use, unspecified, uncomplicated
CPT/HCPCS: 36415; 86850; 86900; 86901; 93005; 99213; A9270; G0463; J1885; J2250; J3010; J7030; J7120

== ENCOUNTER 2023-08-19 12:40 | Outpatient (CLI) | payer MEDICAID, SELFPAY | END 2023-08-19 12:41 | disposition home or self-care (01) | LOC: ANHSURGERY 12:46 | PROVIDERS: Visit Provider Obstetrics & Gynecology | DX: R10.2 Pelvic and perineal pain (principal) | CPT/HCPCS: 36415; 86850; 86900; 86901 ==

== ENCOUNTER 2023-08-20 00:53 | Day surgery (SDC) | payer MEDICAID, SELFPAY ==
[2023-08-12 12:05] VITALS: BMI 26.2
--- NOTE | 2023-08-12 12:12 | PC.NURSE ---
Report to the Outpatient Waiting Room, entrance under the green pavilion located off [facility], at time _0730_ on date _[phone]_. Planned Procedure Time: _0930_. Time changes happen often and if your time is changed the preop area will call you the afternoon before. - You and your visitor will be asked to self-screen and do not enter if you have any COVID symptoms. - A mask is optional within the hospital at this time. Patients may have clear liquids (water, carbonated beverages, clear teas, apple juice) until 3 hours prior to surgery with a maximum of 20 ounces. - No food from midnight until time of surgery Take the following medications with a SIP of water the morning of surgery: __None DO NOT STOP ANY OF YOUR OTHER PRESCRIPTION MEDICATIONS PRIOR TO SURGERY ?EXCEPT THE FOLLOWING Medications to discontinue per physician None Date to take last dose Please no make-up, nail kosovan, hairspray, perfume, deodorant, or body powder the day of surgery. No jewelry (including any body piercings) or valuables the day of surgery, leave them at home. Please take a shower or bath the night before, or the morning of, surgery with an antibacterial soap. Wear comfortable, loose fitting clothing. - Jewelry must be removed prior to entering the operating room. Rings and piercings that are not removed may be cut off. - The hospital will not accept responsibility for valuables. - Please leave all valuables, including medications, at home the day of surgery. If you are going home after surgery, a licensed hog driver must drive you home. - NO public transportation without another adult if you receive anesthesia. - We recommend that an adult stay with you for 24 hours following discharge. - We also recommend that you do not drive, make important decision, drink alcoholic beverages, or take any drugs that were not prescribed by your health care provider for at least 24 hours after your discharge time. Follow any additional instructions given to you from your surgeon. If you or anyone in your household have experienced Covid symptoms in the past week, please notify your surgeon or the nurse liaison at the phone number below for possible testing. Telephone instructions given to _Tana_and asked if any additional questions and then verbalized understanding. Patient advised to call surgeon office or pre surgery nurse liaison [phone] if any additional questions.
--- NOTE | 2023-08-19 05:42 | P.HP_ITS ---
H&P: HPI History of Present Illness Date/Time: 08/19/23 05:42 Chief Complaint: Pelvic pain Narrative: 23-year-old female with pelvic pain and dyspareunia. She had had an abnormal EKG and the underwent medical clearance by Cardiology prior to this procedure. She complains of pain discomfort dyspareunia. Risks and benefits of this procedure were reviewed including this was for aspiration pneumonia, blee ding, transfusion, perforation injury to bowel, bladder, ureters, or other internal organs with need for open laparotomy. She was in the [employer]G handout entitled laparoscopy. She had all questions answered. She asked to proceed PMFSH Past Medical History Medical History Bicuspid aortic valve Surgical History Surgical History No pertinent past surgical history Social History Social History Smoking packs per day: 0.5 Smoking cigarettes per day: 10.0 Years smoked: 7 Smoking pack-years: 3.50 Smoking status: Former smoker Tobacco type: cigarettes Smoking end date: 05/12/23 Alcohol intake: current Drinks per week: 3 Substance use: current Substance use type: marijuana Living arrangements: with family Additional living arrangements comments: BOYFRIEND Gender identity (if verbalized by the patient): Female Spiritual care concerns: No Meds Home Medications and Allergies Home Medications Medication Instructions Recorded Confirmed Type No Home Medications 08/12/23 08/12/23 History Allergies Allergy/AdvReac Type Severity Reaction Status Date / Time tioconazole Allergy Swelling Verified 08/12/23 12:02 [From Monistat 1 (tioconazole)] latex AdvReac Intermediate Hives Verified 08/12/23 12:02 Exam Const: General: cooperative, healthy appearing and comfortable Nutritional Appearance: average body habitus Orientation/consciousness: oriented to person, oriented to place and oriented to time Resp: Effort & Inspection: normal respiratory effort Cardio: Rate: regular rate Rhythm: regular rhythm Heart sounds: S1 normal heart sound present and S2 normal heart sound present GI: Inspection: normal to inspection : External Female Exam: normal external appearance Speculum Exam - Vagina: normal appearance of the vagina Speculum Exam - Cervix: normal appearance of the cervix Bimanual exam- vagina & uterus: uterine mobility normal Bimanual Exam- Adnexa, other: tender bilaterally Assessment and Plan Assessment and plan (1) Pelvic pain: Code(s): R10.2 - Pelvic and perineal pain Status: Acute Assessment and Plan: Patient will undergo laparoscopy
[2023-08-20] VITALS (7 sets, daily range): BP systolic 98–109; BP diastolic 55–72; PULSE 54–107; RESP 14–20; TEMP 36.5–36.6; O2SAT 93–100; BMI 26.1
--- NOTE | 2023-08-20 02:54 | WPDHPUPDATE1 ---
History and Physical Update Update Date/Time: 08/20/23 02:54 History and Physical has been reviewed, including an updated exam of the patient. There are NO changes in the patient's condition. Risks, benefits, and alternatives have been discussed and questions answered. Patient agrees to proceed with procedure.
[2023-08-20] MEDS: LACTATED RINGERS 1,000 ML 30 ML IV CONT ×2 (08:03→10:37)
[2023-08-20] MEDS: ACETAMINOPHEN 500 MG TABLET 1000 MG PO (08:04)
[2023-08-20] MEDS: KETOROLAC 15 MG/ML VIAL (*BKC) IV PUSH (08:04)
--- NOTE | 2023-08-20 09:23 | WPDANESEPPF ---
Anes - Initial Pre Proc Eval Procedure: Operation Date: 08/20/23 09:30 Proposed Procedures p Diagnostic Laparoscopy - Darrell Sanchez MD Date/Time: 08/20/23 09:23 Surgeon: Darrell Sanchez MD Pre Op Diagnosis: pelvic pain,dyspurenia, irregular bleeding Patient Data Age: 23 Gender: F Height: 1.6 m Weight: 66.9 kg Last Vital Signs Temp 97.9 F 08/20/23 08:11 Pulse 107 H 08/20/23 08:11 Resp 16 08/20/23 08:11 BP 100/63 08/20/23 08:11 Pulse Ox 100 08/20/23 08:11 O2 Del Method Room Air 08/20/23 08:11 Allergies Allergy/AdvReac Type Severity Reaction Status Date / Time tioconazole Allergy Swelling Verified 08/20/23 08:11 [From Monistat 1 (tioconazole)] latex AdvReac Intermediate Hives Verified 08/20/23 08:11 Home Medications Medication Instructions Recorded Confirmed Type hydrocodone 5 mg-acetaminophen 325 1 tablet PO Q4H PRN pain #30 tabs 08/20/23 Rx mg tablet Patient hx anesthesia problems: none Family hx anesthesia problems: none Results Review: All pre-operative results and documents have been reviewed as part of the pre-operative evaluation. [facility] Past Medical History Medical History Bicuspid aortic valve Surgical History Surgical History No pertinent past surgical history Social History Social History Smoking packs per day: 0.5 Smoking cigarettes per day: 10.0 Years smoked: 7 Smoking pack-years: 3.50 Smoking status: Former smoker Tobacco type: cigarettes Smoking end date: 05/12/23 Alcohol intake: current Drinks per week: 3 Substance use: current Substance use type: marijuana Living arrangements: with family Additional living arrangements comments: BOYFRIEND Gender identity (if verbalized by the patient): Female Spiritual care concerns: No Anes - Eval Final PreProcedure Day of Procedure 08/20/23 09:23 Patient weight: overweight Heart: regular rate and rhythm Lungs: clear to auscultation Airway: Mallampati scale Neurological: alert and oriented Last oral intake: >/= 8 hours ASA classification: II Emergent: no Anesthetic plan: proceed Anesthesia type and monitoring: general ETT and standard monitoring Results Review: All pre-operative results and documents have been reviewed as part of the pre-operative evaluation. Pt prev smoked cigs, currently vapes. Congenital bicuspid aortic valve, prev EKG noted. Pt had cardio eval within the last month and eval noted EKG done and ECHO recommended in the future but not at this time. Pt active, no cp or sob w activities. Informed Consent: The patient's anesthetic plan and its attendant risks and benefits were discussed with the patient/family/POA. Questions were solicited and answers provided to the satisfaction of the patient/family/POA.
--- NOTE | 2023-08-20 10:28 | W.PM.PROC2 ---
Procedure Note - Detailed Date of Procedure 08/20/23 Pre-op Diagnosis pelvic pain,dyspurenia, irregular bleeding Post-op Diagnosis Other (Pain dyspareunia endometriosis bilateral simple ovarian cysts) Procedure Performed laparoscopy destruction endometriosis description cysts Surgeon Darrell Sanchez MD Anesthesia General Indications 23-year-old female with pelvic pain dyspareunia and irregular periods Findings normal-appearing uterus. Simple appearing bilateral ovarian cysts. A 20cc of serosanguineous fluid in the cul-de-sac with endometrial implants in the form of powder burn and blister. Normal-appearing. Description of Procedure She was. She placed in position speculum placed posterior was cannula was inserted attached to the single-tooth to be later. Dermis bladder clear urine speculum was gloves were changed. An infraumbilical incision made the Veress needle passed in. Filled with CO2 gas to 15 of mercury. The 5 trocar advanced under direct visualization with the [employer]. Injury seen. Patient placed in Trendelenburg and a suprapubic incision made. The 5mm trocar advanced under direct visualization assuring injury the fluid was seen in the cul-de-sac and this was suction irrigated. Multiple areas of endometriosis were seen and caput photo documentation undertaken. Monopolar at 35 per 2nd serially destroyed. Benign bilateral ovarian cysts were these were linear fashion drained of clear follicular fluid. No other abnormalities were seen. the patient was taken out of Trendelenburg the gas removed from the abdomen. Trocars removed the incisions closed with 4 Monocryl glue. The instruments removed from vagina patient was recovered read without difficulty. She went to recovery in satisfactory condition. All sponge, needle, instrument counts were correct. Were no immediate complications Estimated Blood Loss 5 Drains No Packing No Pathology None sent Complications No immediate complications Condition Stable Disposition PACU
[2023-08-20] MEDS: oxyCODONE HCL (*CRX) 5 MG TAB IR PO (11:48)
== END 2023-08-20 12:15 | disposition home or self-care (01) ==
PROVIDERS: Visit Provider Obstetrics & Gynecology
PROC: (CPT 49320; principal; 2023-08-20 09:30)
DX: N83.201 Unspecified ovarian cyst, right side (principal); N80.00 Endometriosis of the uterus, unspecified; R10.2 Pelvic and perineal pain; N94.10 Unspecified dyspareunia; Z87.891 Personal history of nicotine dependence; N83.202 Unspecified ovarian cyst, left side
CPT/HCPCS: 58662; A9270; J1100; J1596; J1885; J2250; J2405; J2704; J3010; J7030; J7120; Q9968

== ENCOUNTER 2023-11-19 13:41 | Emergency (ER) | payer MEDICAID, SELFPAY ==
[2023-11-19 13:53] VITALS: BP 106/67; PULSE 60; RESP 20; TEMP 37; O2SAT 100
== END 2023-11-19 14:18 | disposition left against medical advice (07) ==
PROVIDERS: Emergency Provider Internal Medicine Hematology & Oncology
DX: Z53.21 Procedure and treatment not carried out due to patient leaving prior to being seen by health care provider (principal)
CPT/HCPCS: 99199

== ENCOUNTER 2024-04-25 11:39 | Emergency (ER) | payer MEDICAID, SELFPAY ==
--- NOTE | ~2024-04-25 | CT_ITS ---
EXAMINATION: CT brain wo con, CT facial bones wo con DATE: 04/25/2024 12:28 INDICATION: Trauma with head injury post fall TECHNIQUE: 1. Computed tomography (CT) of the head was performed without intravenous contrast. Sagittal and zheng nal reconstructions were performed. The dose-length product was 605.33 mGy-cm. 2. CT of the maxillofacial bones was performed without intravenous contrast. Sagittal and coronal rec onstructions were performed. Automated exposure control and iterative reconstruction technique were e mployed. The dose length product was 272.57 mGy-cm. COMPARISON: None FINDINGS: Head: No calvarial fracture. No acute intracranial hemorrhage, acute infarction or abnormal extra axial flu id collection. Ventricles are normal and symmetric. No mass/mass effect. Maxillofacial bones: No maxillofacial fractures. Specifically the nasal bones,, mandible, zygomatic arches and olmstead of th e orbits and paranasal sinuses are all intact. Orbits are normal. Nasal septum is midline with no fra cture. The mastoid air cells, middle ear cavities and paranasal sinuses are clear. Soft tissues are u nremarkable. IMPRESSION: 1. Normal brain. No calvarial fracture or acute intracranial process. 2. No maxillofacial fractures. Reviewed, dictated and finalized at location A. JEWELRY SALES ASSOCIATE IMPRESSION: 1. Normal brain. No calvarial fracture or acute intracranial process. 2. No maxillofacial fractures.
--- NOTE | ~2024-04-25 | XR_ITS ---
EXAMINATION: XR hip RT 2V w AP pelvis DATE: 04/25/2024 12:40 INDICATION: Right hip injury. TECHNIQUE: An anteroposterior view of the pelvis and 2 views of right hip were obtained. COMPARISON: None. FINDINGS: Alignment is normal. No fracture. Joint spaces are normal. IMPRESSION: 1. No fracture. Reviewed, dictated and finalized at location A. MECHANICAL TECHNICIAN IMPRESSION: 1. No fracture.
--- NOTE | ~2024-04-25 | XR_ITS ---
EXAMINATION: XR shoulder LT min 2V DATE: 04/25/2024 12:40 INDICATION: Left shoulder injury. TECHNIQUE: 4 views of left shoulder were obtained. COMPARISON: None. FINDINGS: Alignment is normal. No fracture. Joint spaces are normal. There are calcifications of infr aspinatus tendon. IMPRESSION: 1. Calcific tendinitis of the left rotator cuff. Reviewed, dictated and finalized at location A. WALL INSTALLATIONS MECHANIC
--- OUTSIDE RECORDS SUMMARY | 2024-04-25 11:41 | XMS_ITS | Clinical Summary ---
Author Organization [facility] Address [address] [place] [address] Phone Care Team Providers Care Network Diagnostic Support Specialist Name Role Phone Jarad Rasheed MD Unavailable [phone] Darrell Lo MD Primary Care Provider [phone] Allergies Active Allergy Reactions Criticality Noted Date Comments Latex Swelling Medium 11/08/2019 Burning Medications Omeprazole Magnesium (PriLOSEC OTC) 20 MG Tablet Delayed Response Take 20 mg by mouth daily. Active nitrofurantoin, monohydrate-mac rocrystal, (MACROBID) 100 MG Capsule Take 1 Capsule by mouth 2 times daily for 10 days. 20 Capsule 04/11/2024 04/21/19 25 Encounters Date Type Department Care Team Description 04/25/2024 Travel 04/11/2024 Results Follow-Up [facility] [address] [place] [address] Jarad Rasheed MD 04/10/2024 Telephone [facility] [facility] [place] [address] Jarad Rasheed MD 04/07/2024 11:15 AM FISH TENDER Office Visit [facility] [address] [facility] [place] [address] Jarad Rasheed MD UTI symptoms (Primary Dx) Discharge Disposition: Discharged to home or Selfcare 04/07/2024 Travel 03/10/2024 Results Follow-Up [facility] [address] [place] [address] Jarad Rasheed MD 03/06/[address] [facility] [address] [place] [address] Jaard Rasheed MD 03/02/2024 9:56 AM FISH TENDER - 03/02/2024 11:59 PM FISH TENDER Hospital Encounter [facility] MRI 1 [place] [address] Jarad Rasheed MD Discharge Disposition: Discharged to home or Selfcare 03/02/2024 Travel 01/24/2024 [facility] 1 [place] [address] Darrell Lo MD Vaginal mass (Primary Dx) from Last 3 Months Family History Medical History Relation Name Comments No Known Problems Father No Known Problems Mother Relation Name Status Comments Father Alive Mother Alive Social History Tobacco Use Types Packs/Day Years Used Date Smoking Tobacco: Former Cigarettes Smokeless Tobacco: Never Alcohol Use Standard Drinks/Week Comments Yes 0 (1 standard drink = 0.6 oz pur e alcohol) occassional Comments Unknown Sex and Gender Information Value Date Recorded Sex Assigned at Not on file Legal Sex Female 8:38 AM CDT Gender Identity Not on file Sexual Orientation Not on file Last Filed Vital Signs Vital Sign Reading Time Taken Comments Blood Pressure 115/81 04/07/2024 11:13 AM FISH TENDER Pulse 74 04/07/2024 11:13 AM FISH TENDER Temperature - - Respiratory Rate 12 04/07/2024 11:13 AM FISH TENDER Oxygen Saturation 98% 04/07/2024 11:13 AM FISH TENDER Inhaled Oxygen Concentration - - Weight 56.7 kg (125 lb) 04/25/2024 11:00 AM FISH TENDER Height 160 cm (5' 3 ) 04/25/2024 11:00 AM FISH TENDER Body Mass Index 22.14 04/25/2024 11:00 AM FISH TENDER Plan of Treatment Upcoming Encounters Date Type Department Care Team (Latest Contact Info) Description 05/09/2024 12:10 PM FISH TENDER Hospital Encounter [facility] Periop [address] [place] [address] Jarad Rasheed MD [facility]2 [facility] [address] [address] 05/09/2024 12:10 PM FISH TENDER - 05/09/2024 2:10 PM FISH TENDER Surgery [facility] Periop 1 [place] [address] Jarad [facility]heed MD [facility]2 [facility] [address] [address] EXCISION OF URETHRAL MASS Scheduled Procedures Name Priority Associated Diagnoses Date/Ti me URETHRAL LESION EXCISION URINARY TRACT INFECTION SYMPTOMS 05/09/2024 12:10 PM FISH TENDER CYSTOSCOPY URINARY TRACT INFECTION SYMPTOMS 05/09/2024 12:10 PM FISH TENDER Health Maintenance Due Date Last Done Comments Hepatitis C Virus (HCV) Screening 1998 Influenza Immunization (#1) 2023 01/07/2012 SARS-COV-2 Immunization ( season) 2023 Respiratory Syncytial Virus (RSV) Immunization (Adult) (1 - 1-dose 75+ series) 2073 Hepatitis B Immunization Completed 999, 1998, 1998 Meningococcal Immunization (ACWY) Completed 05/27/2016 Human Papillomavirus (HPV) Immunization Completed 11/08/2019, 04/18/2009, 02/14/2009 TdaP Immunization Completed 06/13/2022 Pneumococcal Immunization Combined Aged Out No longer eligible b ased on patient's age to complete this topic Rotavirus Immunization Aged Out No lo nger eligible based on patient's age to complete this topic Procedures Procedure Name Priority Date/Time Associated Diagnosis Comments POCT UA AUTOMATED W/O MICRO Routine 04/07/2024 11:25 AM FISH TENDER UTI symptoms CULTURE, URINE Routine 04/07/2024 11:11 AM FISH TENDER UTI symptoms MRI PELVIS W/WO CONTRAST Routine 03/02/2024 11:28 AM FISH TENDER Vaginal mass UR TEST QUAL Routine 03/02/2024 9:50 AM FISH TENDER Vaginal mass from Last 3 Months Results * (ABNORMAL) POCT UA AUTOMATED W/O MICRO (04/07/2024 11:25 AM FISH TENDER) Pathologist [facility] [place] POC UA SPECIFIC GRAVITY 1.025 URINE PH 5.0 5.0 - 9.0 POC URINE LEUKOCYTES 25 /ul(A) Negative Cesar/uL POC URINE NITRITE Negative Negative POC URINE PROTEIN 30 mg/dL(A) Negative mg/dL POC URINE GLUCOSE Norm Negative, Norm mg/dL POC URINE KETONE 50 mg/dL(A) Negative mg/dL POC URINE UROBILINOGEN 1 E.U./dL (mg/dL) Norm, 0.2 E.U./dL (mg/dL), 1 E.U./dL (mg/dL) POC URINE BILIRUBIN 1 mg/dL(A) Negative mg/dL POC URINE BLOOD INSTRUMENT Negative Negative Kedar/uL POC URINE COLOR Yellow POC URINE CLARITY Slightly Cloudy Urine 04/07/2024 11:2 5 AM FISH TENDER Jarad Henao MD POINT OF CARE TESTING (MANUAL) Final Result * CULTURE, URINE (04/07/2024 11:11 AM FISH TENDER) Pathologist [facility] [place] CULTURE RESULTS STAPHYLOCOCCUS HAEMOLYTICUS 04/10/2024 7:27 PM FISH TENDER [facility] Culture (Pre-Op Catheter) Non-Phlebotomy Collection / Unknown 04/07/2024 11:11 AM FISH TENDER 04/07/2024 11:11 AM FISH TENDER Narrative Organism Antibiotic Method Susceptibility Staphylococcus haemolyticus Gentamicin [facility] IIB <=0.5 mcg/ml: Susceptible Staphylococcus haemolyticus Linezolid [facility] IIB 2 mcg/ml: Susceptible Staphylococcus haemolyticus Nitrofurantoin [facility] IIB <=16 mcg/ml: Susceptible Staphylococcus haemolyticus Oxacillin [facility] IIB <=0.25 mcg/ml: Susceptible Staphylococcus haemolyticus Tetracycline [facility] IIB <=1 mcg/ml: Susceptible Staphylococcus haemolyticus Trimeth/Sulfamethoxazol e [facility] IIB <=10 mcg/ml: Susceptible Staphylococcus haemolyticus Vancomycin [facility] IIB <=0.5 mcg/ml: Susceptible us Jarad Henao MD MICROBIOLOGY - GENERAL ORDERAB LES Final Result [facility] [address] [place] [address], [place] * MRI PELVIS W/WO CONTRAST (03/02/2024 11:28 AM FISH TENDER) Anatomical Region Laterality Modality Abdomen, Pelvis N/A Magnetic Resonan ce 03/02/2024 12:3 3 PM FISH TENDER Impressions 03/02/2024 12:36 PM FISH TENDER IMPRESSION: 1.5 x 1.2 x 1.7 cm paraurethral duct cyst. Narrative 03/02/2024 12:36 PM FISH TENDER EXAM DESCRIPTION: MRI PELVIS W/WO CONTRAST REASON FOR STUDY: Urethral cyst for over 1 year has been drained on 2 previous occasions. Some obstructive urinary symptoms, and significant pain with intercourse. TECHNIQUE: MRI of the pelvis performed without intravenous contrast according to the urethra protocol. All images stored on PACS. COMPARISON: None FINDINGS: BLADDER/URETHRA: No focal bladder wall thickening or nodularity. No diverticula at the level of the urethral meatus is a intrinsically T1 hyperintense oval-shaped structure measuring a maximum of 1.5 x 1.2 x 1.7 cm (series 11, image 183 and series 12, image 27). There is no abnormal enhancement on postcontrast imaging. This is most compatible with a paraurethral duct cyst. Clear communication with the urethra is not identified. RIGHT OVARY: Normal size. No masses. LEFT OVARY: Normal size. No masses. UTERUS: Normal size. No masses. Normal endometrium. Junctional zone normal. VAGINA: Normal. PELVIC SIDEWALL: Normal. No masses. LYMPH NODES: No pathologically enlarged lymph nodes. GI: Normal. MUSCULOSKELETAL: No abnormal marrow signal. OTHER: No other significant finding. THIS IS AN ELECTRONICALLY VERIFIED FINAL REPORT 03/02/2024 12:33 PM - Electronically signed by Ramy LOCKHART Report ID: [id number] Reading Location: [id number] Procedure Note Ramy Arnold MD - 03/02/2024 EXAM DESCRIPTION: MRI PELVIS W/WO CONTRAST REASON FOR STUDY: Urethral cyst for over 1 year has been drained on 2 previous occasions. Some obstructive urinary symptoms, and significant pain with intercourse. TECHNIQUE: MRI of the pelvis performed without intravenous contrast according to the urethra protocol. All images stored on PACS. COMPARISON: None FINDINGS: BLADDER/URETHRA: No focal bladder wall thickening or nodularity. No diverticula at the level of the urethral meatus is a intrinsically T1 hyperintense oval-shaped structure measuring a maximum of 1.5 x 1.2 x 1.7 cm (series 11, image 183 and series 12, image 27). There is no abnormal enhancement on postcontrast imaging. This is most compatible with a paraurethral duct cyst. Clear communication with the urethra is not identified. RIGHT OVARY: Normal size. No masses. LEFT OVARY: Normal size. No masses. UTERUS: Normal size. No masses. Normal endometrium. Junctional zone normal. VAGINA: Normal. PELVIC SIDEWALL: Normal. No masses. LYMPH NODES: No pathologically enlarged lymph nodes. GI: Normal. MUSCULOSKELETAL: No abnormal marrow signal. OTHER: No other significant finding. THIS IS AN ELECTRONICALLY VERIFIED FINAL REPORT 03/02/2024 12:33 PM - Electronically signed by Ramy LOCKHART: RICHY Report ID: [id number] Reading Location: [id number] IMPRESSION: 1.5 x 1.2 x 1.7 cm paraurethral duct cyst. [facility] Olvin Rasheed MD [facility] MR ORDERABLES Final Result * UR TEST QUAL (03/02/2024 9:50 AM FISH TENDER) PREG TEST,MONOCLONA L Negative 03/02/2024 10:01 AM FISH TENDER [facility] Urine Non-Phlebotomy Collection / Unknown 03/02/2024 9:50 AM FISH TENDER 03/02/2024 10:00 AM FISH TENDER us Darrell Sanchez MD URINE ORDERABLES Final Res ult [facility] [address] [place] [address] from Last 3 Months Insurance MEDICAID [place] Care Teams Network Diagnostic Support Specialist Relationship Specialty Start Date End Date Darrell Lo MD [address] [place] [address] PCP - General Primary Care 01/21/24 Jarad Rasheed MD #[address] [place] [address] Consulting Physician Urology 01/19/24
--- OUTSIDE RECORDS SUMMARY | 2024-04-25 11:41 | XMS_ITS | Encounter Summary ---
Author Organization [facility] Address [address] [place] [address] Phone Care Team Providers Care Bus And Trolley Inspecting Dispatcher Name Role Phone Jarad Rasheed MD Unavailable [phone] Darrell Lo MD Primary Care Provider [phone] Encounter Details Date Type Department Care Team (Late st Contact Info) Description 04/11/2024 Results Follow-Up [facility] [address] [place] [id number] Jarad Rasheed MD #2 [facility] [address] [address] Social History Tobacco Use Types Packs/Day Years [...] on file Sexual Orientation Not on file documented as of this encounter Progress Notes * Jarad Rasheed MD - 04/11/2024 1:35 PM CST Can you please let the patient know Ucx pos, I placed rx for abx. Thank you, Jarad Rasheed MOTIVE DIAGNOSTIC TECHNICIAN documented in this encounter Plan of Treatment Upcoming Encounters Date Type Department Care Team (Latest Contact Info) Description 05/09/2024 12:10 PM AUTOMOTIVE DIAGNOSTIC TECHNICIAN Hospital Encounter [facility] Periop 1 [facility] [place] [address] Jarad Rasheed MD [address] [address] 05/09/2024 12:10 PM AUTOMOTIVE DIAGNOSTIC TECHNICIAN - 05/09/2024 2:10 PM AUTOMOTIVE DIAGNOSTIC TECHNICIAN [facility] 1 [facility] [place] [place] [address] Jarad Rasheed MD #[address] [address] EXCISION OF URETHRAL MASS Scheduled Procedures Name Priority Associated Diagnoses Date/Ti me URETHRAL LESION EXCISION URINARY TRACT INFECTION SYMPTOMS 05/09/2024 12:10 PM AUTOMOTIVE DIAGNOSTIC TECHNICIAN CYSTOSCOPY URINARY TRACT INFECTION SYMPTOMS 05/09/2024 12:10 PM AUTOMOTIVE DIAGNOSTIC TECHNICIAN documented as of this encounter Visit Diagnoses Not on filedocumented in this encounter Care Teams Bus And Trolley Inspecting Dispatcher Relationship Specialty Start Date End Date Darrell Lo MD [address] [place] [address] PCP - General Primary Care 01/21/24 Jarad Rasheed MD [address] [address] Consulting Physician Urology 01/19/24 documented as of this encounter
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
--- OUTSIDE RECORDS SUMMARY | 2024-04-25 11:41 | XMS_ITS | Clinical Summary ---
Author Organization [facility] Office Address [address] [place], [place] [address] [address] Care Team Providers Care Choir Leader Name Role Phone Darrell Melara DO Primary Care Provider Allergies Active Allergy Reactions Criticality Noted Date Comments Tioconazole Swelling Low 09/01/2018 Medications naproxen (NAPROSYN) 500 mg tablet Take 1 Tablet (500 mg) by mouth 2 times daily with meals. 40 Tablet 1 05/10/2019 Active baclofen (LIORESAL) 10 mg tablet Take 1 Tablet (10 mg) by mouth 3 times daily as needed for Pain. 40 Tablet 1 05/10/2019 Active Active Problems Problem Noted Date Diagnosed Date Tobacco use 05/10/2019 Breast mass, right 10/18/2014 Bicuspid aortic valve 02/26/2011 Immunizations Immunization Administration Dates Next Due (GARDASIL)(9-45 YRS) HUMAN PAPILLOMAVIRUS VACCINE, TYPES 6, 11, 16, 18, QUADRIVALENT (4VHPV), 3 DOSE, IM 04/18/2009,02/14/2009 (INFANRIX)(6 WKS-6 YRS) DIPT HERIA, TETANUS TOXOIDS, AND ACCELLULAR PERTUSSIS VACCINE (DTAP), 0.5 ML IM 07/28/1999,1998,1998,03/22 (IPOL)(6 WKS AND UP) POLIOVI DANNY VACCINE, INACTIVATED (IPV), 3 DOSE, SUBCUT OR IM 07/26/1999,1998,1998,03/22 (M-M-R II/PRIORIX)(12 MO UP) MEASLES, MUMPS AND RUBELLA VIRUS VACCINE, 0.5 ML IM/SUBCUT 01/17/1999 (VARIVAX)(12 MOS UP)VARICELL A VIRUS VACCINE (PF) 0.5 ML, SUB CUT 02/09/2008,01/17/1999 HIB, Unspecified Formulation 07/28/1999, 1998,1998,03/22 Hepatitis A Vaccine 04/18/2009 Hepatitis B Vaccine 1998,1998,1997 Influenza Seasonal Unspecifi ed Formulation IM 02/14/2009,02/09/2008,02/08/2007,01/17 Influenza Vaccine Split 3+ Yrs IM VFC 02/26/2011 Family History Medical History Relation Name Comments Other Father Healthy Mother Relation Name Status Comments Father Alive Mother Alive Social History Tobacco Use Types Packs/Day Years Used Date Smoking Tobacco: Every Day Cigarettes Smokeless Tobacco: Never Alcohol Use Standard Drinks/Week Comments No 0 (1 standard drink = 0.6 oz pur e alcohol) Comments Unknown Sex and Gender Information Value Date Recorded Sex Assigned at Not on file Legal Sex Female 5:42 AM JOB BOSS Gender Identity Not on file Sexual Orientation Not on file Last Filed Vital Signs Vital Sign Reading Time Taken Comments Blood Pressure 104/64 05/10/2019 12:23 PM JOB BOSS Pulse 72 05/10/2019 12:23 PM JOB BOSS Temperature 36.5 C (97.7 F) 05/10/2019 12:23 PM JOB BOSS Respiratory Rate 18 09/01/2018 7:00 PM CDT Oxygen Saturation - - Inhaled Oxygen Concentration - - Weight 59.3 kg (130 lb 12.8 oz) 020 12:23 PM JOB BOSS Height 157.5 cm (5' 2 ) 05/10/2019 12:2 3 PM JOB BOSS Body Mass Index 23.92 05/10/2019 12:23 PM JOB BOSS Plan of Treatment Health Maintenance Due Date Last Done Comments DTAP/TDAP/TD VACCINES (5 - Tdap) 2009 07/28/1999, 1998, 1998, Additional history exists HPV VACCINES (3 - 2-dose series) 08/15/2009 04/18/19 10, 02/14/2009 CERVICAL CANCER SCREENING 2019 INFLUENZA VACCINE (#1) 2023 0, 02/26/2011, 02/14/2009, Additional history exists HEPATITIS B VACCINES Completed 1998, 1998, 1998 Care Teams Choir Leader Relationship Specialty Start Date End Date Darrell Melara DO PCP - General 08/18/08
--- OUTSIDE RECORDS SUMMARY | 2024-04-25 11:41 | XMS_ITS | Referral Summary ---
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 Declines patches [...] I referred her to see counselor or neonatal social worker for help. 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, getting certified for [...] 10/18/2019 Assessment & Plan (01/18/2020 12:10 PM MANAGER SALES TRAINING): Patient reports depression and anxiety is chronic [...] (Menactra) 05/27/2016 Polio, Unspecified 1998 Varicella 02/09/2008,01/17/1999 Social History Tobacco Use Types Packs/Day Years [...] 08/05/2023 11:03 AM CDT Plan of Treatment Not on file Procedures Procedure Name Priority Date/Time Associated Diagnosis Comments HM PAP SMEAR WITH HPV Routine 11/08/2019 from Last 3 Months or Most Recently Relevant to Health Maintenance Results * (ABNORMAL) HM PAP SMEAR WITH HPV (11/08/2019) Scribed Pap Smear w/HPV Abnormal us Saira Leal MD HEALTH MAINTENANCE Final Resul t from Last 3 Months or Most Recently Relevant to Health Maintenance Insurance AETNA [facility] IDFL IDFL Care Teams Resolution Agent Relationship Specialty Start Date End Date Keely Groves NP PCP - General Internal Medicine 05/22/21 Saira Leal MD Consulting Physician Obstetrics and Gynecology 01/18/20
--- OUTSIDE RECORDS SUMMARY | 2024-04-25 11:41 | XMS_ITS | Encounter Summary ---
Author Organization [facility] Address [address] [place] [address] Phone Care Team Providers Care Mimeographer Name Role Phone Jarad Rasheed MD Unavailable [phone] Darrell Lo MD Primary Care Provider [phone] Encounter Details Date Type Department Care Team (Late st Contact Info) Description 03/10/2024 Results Follow-Up ON LICENSE OF [facility] [address] [place] [id number] Jarad Rasheed MD #2 [facility] [address] [address] Social History Tobacco Use Types Packs/Day Years Used Date Smoking Tobacco: Never Assessed Comments Unknown Sex and Gender Information Value Date Recorded Sex Assigned at Not on file Legal Sex Female 8:38 AM CDT Gender Identity Not on file Sexual Orientation Not on file documented as of this encounter Progress Notes * Hali Jorge RMA - 03/10/2024 11:10 AM CST Patient informed and scheduled. HER HAND * Jarad Rasheed MD - 03/10/2024 9:12 AM CST Can you please let the patient know MRI shows a 1.5 cm cyst along the urethra. She will need surgical removal. Can we please set up an appointment with me so I can discuss surgical planning and details about surgery/recovery.. Thank you, Jarad Rasheed HER HAND documented in this encounter Plan of Treatment Upcoming Encounters Date Type Department Care Team (Latest Contact Info) Description 05/09/2024 12:10 PM BRUSHER HAND Hospital En[facility] [address] [place] [address] Jarad Rasheed MD #2 [facility] [address] [place] [address] 05/09/2024 12:10 PM BRUSHER HAND - 05/09/2024 2:10 PM BRUSHER HAND Surgery [facility] [address] [place] [address] Jarad Rasheed MD [address] [address] EXCISION OF URETHRAL MASS Scheduled Procedures Name Priority Associated Diagnoses Date/Ti me URETHRAL LESION EXCISION URINARY TRACT INFECTION SYMPTOMS 05/09/2024 12:10 PM BRUSHER HAND CYSTOSCOPY URINARY TRACT INFECTION SYMPTOMS 05/09/2024 12:10 PM BRUSHER HAND documented as of this encounter Visit Diagnoses Not on filedocumented in this encounter Care Teams Mimeographer Relationship Specialty Start Date End Date Darrell Lo MD [address] [place] [address] PCP - General Primary Care 01/21/24 Jarad Rasheed MD [address] [address] Consulting Physician Urology 01/19/24 documented as of this encounter
--- OUTSIDE RECORDS SUMMARY | 2024-04-25 11:41 | XMS_ITS | Encounter Summary ---
Author Organization [facility] Care Team Providers Care Solar Mechanical Engineer Name Role Phone Jarad Rasheed MD Unavailable [phone] Darrell Lo MD Primary Care Provider [phone] Encounter Details Date Type Department Care Team (Latest Contact Info) Description 04/25/2024 Travel Social History Tobacco Use Types Packs/Day Years [...] on file documented as of this encounter Plan of Treatment Upcoming Encounters Date Type Department Care Team (Latest Contact Info) Description 05/09/2024 12:10 PM SUPERVISOR FINISHING DEPARTMENT [facility] [place] [address] Jarad Rasheed MD #[address] [address] 05/09/2024 12:10 PM SUPERVISOR FINISHING DEPARTMENT - 05/09/2024 2:10 PM SUPERVISOR FINISHING DEPARTMENT [facility] [address] [place] [address] Jarad Rasheed MD #[address] [address] EXCISION OF URETHRAL MASS Scheduled Procedures Name Priority Associated Diagnoses Date/Ti me URETHRAL LESION EXCISION URINARY TRACT INFECTION SYMPTOMS 05/09/2024 12:10 PM SUPERVISOR FINISHING DEPARTMENT CYSTOSCOPY URINARY TRACT INFECTION SYMPTOMS 05/09/2024 12:10 PM SUPERVISOR FINISHING DEPARTMENT documented as of this encounter Visit Diagnoses Not on filedocumented in this encounter Care Teams Solar Mechanical Engineer Relationship Specialty Start Date End Date Darrell Lo MD [address] [place] [address] PCP - General Primary Care 01/21/24 Jarad Rasheed MD #2 [facility], [address] [place] [address] Consulting Physician Urology 01/19/24 documented as of this encounter
--- OUTSIDE RECORDS SUMMARY | 2024-04-25 11:41 | XMS_ITS | Continuity of Care Document ---
Author Organization [facility] Address [id number] [address] Phone Care Team Providers Care Manager Of Business Operations Name Role Phone Unavailable Unavailable Unavailable Allergies, Adverse Reactions, Alerts Substance Reaction Status Criticality No Known Allergies Active No Inform ation Medications Medication Instructions Dosage Effective Dates (start - stop) Status Comments [place] 7.5 mg-325 mg tablet take 1 tablet by oral route every 6 hours as needed for breakthrough pain. - Active Periogard 0.12 % mouthwash This is an oral rinse. Swish with one capful for 30 seconds then spit out. Twice a day. DO NOT EAT OR DRINK FOR ONE HOUR FOLLOWING. - Active 1 Bottle Procedures Procedure Date Removal Of Impacted Tooth Partially Bony Removal Of Impacted Tooth Soft Tissue Removal Of Impacted Tooth Completely Bony Removal Of Impacted Tooth Completely Bony IV Moderate (conscious) Sedation/analges ia, 15 Min IV Moderate (conscious) Sedation/analges ia, 15 Min IV Moderate (conscious) Sedation/analges ia, 15 Min EDR Approval Note Limited Oral Evaluation Problem Focused EDR Approval Note Advance Directives Directive Yes / No Effective Date File Name No Information Encounters Encounter Description Practice Location Reason(s) For Visit Diagnoses Date Provider Providers Copied on Encounter [facility], [id number], [id number], [place] tel:[phone] Dental General [facility] Encounter for dental exam and cleaning w/o abnormal findings No Information [facility], [id number] [facility], [place], [place], [id number], [place] tel:[phone] Dental [facility] Encounter for dental exam and cleaning w/o abnormal findings No Information Family History Family Member Type Diagnosis Age At Onset No Information Payers Payer name Insurance type Covered green party ID Ifeoma rivera(s) D [employer]quest [id number] Social History Type Description Quantity Date Captured Comments Alcohol Use Details No Caffeine Use Details Unknown Tobacco Use Status Smoking Status No Information Sex Female Chief Complaint And Reason For Visit No Information Reason For Referral Reason For Referral No Information Plan Of Treatment Date Type Action Status Goal Tobacco cessation counseling completed Goal Tobacco cessation counseling completed History Of Present Illness Encounter Date Complaint History Of Prese nt Illness No Information Functional Status Date Functional Assessmen t No Information Instructions Date Instruction Additional Infor mation Lifestyle education Related to D ental Examination Assessments Type Assessment Date No Information Patient Care Teams Name Effective Dates (start - stop) Status Members No Information
[2024-04-25 12:00] VITALS: BP 113/68; PULSE 59; RESP 18; TEMP 36.3; O2SAT 100
--- NOTE | 2024-04-25 12:17 | ED_ITS ---
HPI - General Adult General Chief complaint: Fall Stated complaint: fall, back/shoulder pain Time Seen by Provider: 04/25/24 11:59 History of Present Illness HPI narrative: 24-year-old female presenting to the emergency department for evaluation for injury sustained after a fall and subsequent near syncopal episode. Patient states she fell on the ice and did injure her right hip. Patient states the pain was so bad that when she was sitting in a chair afterwards she fell from the chair and injured her face and left shoulder. Patient states this happened on Wednesday. Patient states she has had no further loss of consciousness but is having pain in her shoulder hip and right face. Related Data Allergies Allergy/AdvReac Type Severity Reaction Status Date / Time tioconazole (From Monistat 1 Allergy Swelling Verified 08/20/23 08:11 (tioconazole)) latex AdvReac Intermediate Hives Verified 08/20/23 08:11 Review of Systems Review of Systems: All systems reviewed & are unremarkable except as noted in HPI and below PMFSH Past Medical History Medical History Bicuspid aortic valve Surgical History Surgical History No pertinent past surgical history Social History Social History Smoking packs per day: 0.5 Smoking cigarettes per day: 10.0 Years smoked: 7 Smoking pack-years: 3.50 Smoking status: Former smoker Tobacco type: cigarettes Smoking end date: 05/12/23 Alcohol intake: current Drinks per week: 3 Substance use: current Substance use type: marijuana Living arrangements: with family Additional living arrangements comments: BOYFRIEND Gender identity (if verbalized by the patient): Female Spiritual care concerns: No Exam Narrative: APPEARANCE: Well appearing, no pain, no distress, well-nourished. HEAD: normocephalic, atraumatic. EYES: PERRLA/EOMI, conjunctivae clear. NOSE: Normal no drainage EARS:TMS clear with good light reflex. THROAT: Pharynx clear, no exudate. NECK: Supple. No adenopathy, no masses. RESPIRATORY: Airway patent, respirations nonlabored. Clear to auscultation bilaterally, no rales, rhonchi, wheezing. CARDIOVASCULAR: Regular rate and rhythm without murmurs rubs or gallops. ABDOMINAL: Soft, nontender, nondistended, normal bowel sounds MUSCULOSKELETAL: Tenderness to left shoulder, right hip and right face, no ecchymosis, no edema. NEURO: Alert. Cranial nerves II through XII intact. Good gait. Good coordination SKIN: Warm, dry. Normal Color Course Vital Signs Vital signs: Vital Signs Temperature 97.4 F L 04/25/24 12:00 Pulse Rate 59 L 04/25/24 12:00 Respiratory Rate 18 04/25/24 12:00 Blood Pressure 113/68 04/25/24 12:00 Pulse Oximetry 100 04/25/24 12:00 Oxygen Delivery Room Air 04/25/24 12:00 Temperature 97.4 F L 04/25/24 12:00 Pulse Rate 67 04/25/24 13:20 Respiratory Rate 16 04/25/24 13:20 Blood Pressure 116/73 04/25/24 13:20 Pulse Oximetry 100 04/25/24 13:20 Oxygen Delivery Room Air 04/25/24 12:00 Medical Decision Making MDM Narrative Medical decision making narrative: 24-year-old female presented emergency department for evaluation for hip pain shoulder pain and facial pain after having a ground level fall. X-ray CT were negative. Vital Signs Vital Signs: Vital Signs Temperature 97.4 F L 04/25/24 12:00 Pulse Rate 59 L 04/25/24 12:00 Respiratory Rate 18 04/25/24 12:00 Blood Pressure 113/68 04/25/24 12:00 Pulse Oximetry 100 04/25/24 12:00 Oxygen Delivery Room Air 04/25/24 12:00 Temperature 97.4 F L 04/25/24 12:00 Pulse Rate 67 04/25/24 13:20 Respiratory Rate 16 04/25/24 13:20 Blood Pressure 116/73 04/25/24 13:20 Pulse Oximetry 100 04/25/24 13:20 Oxygen Delivery Room Air 04/25/24 12:00 Imaging Data Radiologist's impression: Impressions Face CT 04/25/24 12:31 IMPRESSION: 1. Normal brain. No calvarial fracture or acute intracranial process. 2. No maxillofacial fractures. Head CT 04/25/24 12:31 IMPRESSION: 1. Normal brain. No calvarial fracture or acute intracranial process. 2. No maxillofacial fractures. Hip/Pelvis X-Ray 04/25/24 12:43 IMPRESSION: 1. No fracture. Shoulder X-Ray 04/25/24 12:44 IMPRESSION: 1. Calcific tendinitis of the left rotator cuff. Discharge Plan Discharge Clinical Impression: Hip injury, Head injury, Injury of shoulder Patient Disposition: Home, Self-Care Condition: Stable Instructions: Antibiotic Form, Head Injury (ED) Additional Instructions: Tylenol and ibuprofen for pain control. Flexeril for muscle spasm. Have close follow-up with your primary care physician. If you have any worsening symptoms please call or return to the emergency department. Patient Language: Tamazight Prescriptions: New benzonatate 100 mg capsule 100 mg PO TID PRN (Reason: cough) Qty: 14 0RF No Action hydrocodone-acetaminophen 5-325 mg tablet 1 tablet PO Q4H PRN (Reason: pain) Qty: 30 0RF Follow-up/Referrals: PHYSICIAN,MORTGAGE LOAN OFFICER ORIGINATOR [Non-Staff] -
--- OUTSIDE RECORDS SUMMARY | 2024-04-25 12:22 | XMS_ITS | Encounter Summary ---
Author Organization [facility] Care Team Providers Care Solo Musician Name Role Phone Jarad Rasheed MD Unavailable [phone] Darrell Lo MD Primary Care Provider [phone] Encounter Details Date Type Department Care Team (Latest Contact Info) Description 04/25/2024 Travel Social History Tobacco Use Types Packs/Day Years Used Date Smoking Tobacco: Former Cigarettes Q uit: 2023 Smokeless Tobacco: Never Alcohol Use Standard Drinks/Week [...] (Latest Contact Info) Description 05/09/2024 12:10 PM PRINTER HELPER [facility] [place] [address] Jarad Rasheed MD #[address] [address] 05/09/2024 12:10 PM PRINTER HELPER - 05/09/2024 2:10 PM PRINTER HELPER [facility] [address] [place] [address] Jarad Rasheed MD #[address] [address] EXCISION OF URETHRAL MASS Scheduled Procedures Name Priority Associated Diagnoses Date/Ti me URETHRAL LESION EXCISION URINARY TRACT INFECTION SYMPTOMS 05/09/2024 12:10 PM PRINTER HELPER CYSTOSCOPY URINARY TRACT INFECTION SYMPTOMS 05/09/2024 12:10 PM PRINTER HELPER documented as of this encounter Visit Diagnoses Not on filedocumented in this encounter Care Teams Solo Musician Relationship Specialty Start Date End Date Darrell Lo MD [address] [facility] [address] [place], [place] [id number] PCP - General Primary Care 01/21/24 Jarad Rasheed MD #2 [facility] [address] [place] [address] Consulting Physician Urology 01/19/24 documented as of this encounter
--- OUTSIDE RECORDS SUMMARY | 2024-04-25 12:22 | XMS_ITS | Referral Summary ---
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
--- OUTSIDE RECORDS SUMMARY | 2024-04-25 12:22 | XMS_ITS | Continuity of Care Document ---
Author Organization [facility] Address [address] [id number], [place] [address] Phone Care Team Providers Care Sourcing Associate Name Role Phone Unavailable Unavailable Unavailable Allergies, Adverse Reactions, Alerts Substance Reaction Status Criticality No Known Allergies Active No Inform ation Medications Medication Instructions Dosage Effective Dates (start - stop) Status Comments [place] 7.5 mg-325 mg tablet take 1 tablet [...] Diagnoses Date Provider Providers Copied on Encounter [facility], [id number], [id number], [place] tel:[phone] Dental General [facility] Encounter for dental exam and cleaning w/o abnormal findings No Information [facility], [id number] [facility], [place], [place], [id number], [place] tel:[phone] Dental General LL Encounter for dental exam and cleaning w/o abnormal findings No Information Family History Family Member Type Diagnosis Age At Onset No Information Payers Payer name Insurance type Covered green party ID Ifeoma rivera(s) D Dentaquest [id number] Social History Type Description Quantity Date Captured [...]
--- OUTSIDE RECORDS SUMMARY | 2024-04-25 12:22 | XMS_ITS | Clinical Summary ---
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 Declines patches [...] I referred her to see counselor or social media director for help. 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
--- OUTSIDE RECORDS SUMMARY | 2024-04-25 12:22 | XMS_ITS | Clinical Summary ---
Author Organization [facility] Address [address] [place] [address] Phone Care Team Providers Care Last Greaser Name Role Phone Jarad Rasheed MD Unavailable [phone] Darrell Lo MD Primary Care Provider [phone] Allergies Active Allergy Reactions Criticality Noted Date [...] Description 04/25/2024 Travel 04/11/2024 Results Follow-Up [facility] [address] [place] [address] Jarad Rasheed MD 04/10/2024 Telephone [facility] [place] [address] Jarad Rasheed MD 04/07/2024 11:15 AM SCHOOL LABORATORY TECHNICIAN Office Visit [facility] [address] [facility] [place] [address] Jarad Rasheed MD UTI symptoms (Primary Dx) Discharge Disposition: Discharged to home or Selfcare 04/07/2024 Travel 03/10/2024 Results Follow-Up [facility] [address] [place] [address] Jarad Rasheed MD 03/06/2024 Telephone [facility] [address]2 [place] [address] Jarad Rasheed MD 03/02/2024 9:56 AM SCHOOL LABORATORY TECHNICIAN - 03/02/2024 11:59 PM SCHOOL LABORATORY TECHNICIAN Hospital Encounter [facility] MRI 1 [place] [address] Jarad Rasheed MD Discharge Disposition: Discharged to home or Selfcare 03/02/2024 Travel 01/24/2024 Transcribe Orders [facility] Scheduling [address] [place] [address] Darrell Lo MD Vaginal mass (Primary Dx) from Last 3 Months Family History Medical History Relation Name Comments No Known Problems Father No Known Problems Mother Relation Name Status Comments Father Alive Mother Alive Social History Tobacco Use Types Packs/Day Years Used Date Smoking Tobacco: Former Cigarettes Q uit: 2023 Smokeless Tobacco: Never Tobacco Cessation:Counseling Given: Not Answered Alcohol Use Standard Drinks/Week Comments Yes 0 [...] Comments Blood Pressure 115/81 04/07/2024 11:13 AM SCHOOL LABORATORY TECHNICIAN Pulse 74 04/07/2024 11:13 AM SCHOOL LABORATORY TECHNICIAN Temperature - - Respiratory Rate 12 04/07/2024 11:13 AM SCHOOL LABORATORY TECHNICIAN Oxygen Saturation 98% 04/07/2024 11:13 AM SCHOOL LABORATORY TECHNICIAN Inhaled Oxygen Concentration - - Weight 56.7 kg (125 lb) 04/25/2024 11:00 AM SCHOOL LABORATORY TECHNICIAN Height 160 cm (5' 3 ) 04/25/2024 11:00 AM SCHOOL LABORATORY TECHNICIAN Body Mass Index 22.14 04/25/2024 11:00 AM SCHOOL LABORATORY TECHNICIAN Plan of Treatment Upcoming Encounters Date Type Department Care Team (Latest Contact Info) Description 05/09/2024 12:10 PM SCHOOL LABORATORY TECHNICIAN Hospital [facility] [place] [place] [address] Jarad Rasheed MD #2 [facility] [address] [address] 05/09/2024 12:10 PM SCHOOL LABORATORY TECHNICIAN - 05/09/2024 2:10 PM SCHOOL LABORATORY TECHNICIAN Surgery [facility] Periop 1 [place] [address] Jarad Rasheed MD [address] [address] EXCISION OF URETHRAL MASS Scheduled Procedures Name Priority Associated Diagnoses Date/Ti me URETHRAL LESION EXCISION URINARY TRACT INFECTION SYMPTOMS 05/09/2024 12:10 PM SCHOOL LABORATORY TECHNICIAN CYSTOSCOPY URINARY TRACT INFECTION SYMPTOMS 05/09/2024 12:10 PM SCHOOL LABORATORY TECHNICIAN Health Maintenance Due Date Last Done Comments [...] AUTOMATED W/O MICRO Routine 04/07/2024 11:25 AM SCHOOL LABORATORY TECHNICIAN UTI symptoms CULTURE, URINE Routine 04/07/2024 11:11 AM SCHOOL LABORATORY TECHNICIAN UTI symptoms MRI PELVIS W/WO CONTRAST Routine 03/02/2024 11:28 AM SCHOOL LABORATORY TECHNICIAN Vaginal mass UR TEST QUAL Routine 03/02/2024 9:50 AM SCHOOL LABORATORY TECHNICIAN Vaginal mass from Last 3 Months Results * (ABNORMAL) POCT UA AUTOMATED W/O MICRO (04/07/2024 11:25 AM SCHOOL LABORATORY TECHNICIAN) POC UA SPECIFIC GRAVITY 1.025 URINE PH [...] Slightly Cloudy Urine 04/07/2024 11:2 5 AM SCHOOL LABORATORY TECHNICIAN Jarad Henao MD POINT OF CARE TESTING (MANUAL) Final Result * CULTURE, URINE (04/07/2024 11:11 AM SCHOOL LABORATORY TECHNICIAN) Pathologist [facility] CULTURE RESULTS STAPHYLOCOCCUS HAEMOLYTICUS 04/10/2024 7:27 PM SCHOOL LABORATORY TECHNICIAN [facility] Culture (Pre-Op Catheter) Non-Phlebotomy Collection / Unknown 04/07/2024 11:11 AM SCHOOL LABORATORY TECHNICIAN 04/07/2024 11:11 AM SCHOOL LABORATORY TECHNICIAN Narrative Organism Antibiotic Method Susceptibility Staphylococcus haemolyticus [...] - GENERAL ORDERAB LES Final Result [facility] [address] [place] [address], [place] * MRI PELVIS W/WO CONTRAST (03/02/2024 11:28 AM SCHOOL LABORATORY TECHNICIAN) Anatomical Region Laterality Modality Abdomen, Pelvis N/A Magnetic Resonan ce 03/02/2024 12:3 3 PM SCHOOL LABORATORY TECHNICIAN Impressions 03/02/2024 12:36 PM SCHOOL LABORATORY TECHNICIAN IMPRESSION: 1.5 x 1.2 x 1.7 cm paraurethral duct cyst. Narrative 03/02/2024 12:36 PM SCHOOL LABORATORY TECHNICIAN EXAM DESCRIPTION: MRI PELVIS W/WO CONTRAST REASON [...] signed by Ramy LOCKHART: RICHY Report ID: [id number] Reading Location: [id number] Procedure Note Ramy Arnold MD - 03/02/2024 [...] signed by Ramy LOCKHART: RICHY Report ID: [id number] Reading Location: [id number] IMPRESSION: 1.5 x 1.2 x 1.7 cm paraurethral duct cyst. [facility] Olvin Rasheed MD [facility] MR ORDERABLES Final Result * UR TEST QUAL (03/02/2024 9:50 AM SCHOOL LABORATORY TECHNICIAN) PREG TEST,MONOCLONA L Negative 03/02/2024 10:01 AM SCHOOL LABORATORY TECHNICIAN [facility] Urine Non-Phlebotomy Collection / Unknown 03/02/2024 9:50 AM SCHOOL LABORATORY TECHNICIAN 03/02/2024 10:00 AM SCHOOL LABORATORY TECHNICIAN us Darrell Sanchez MD URINE ORDERABLES Final Res ult [facility] [address] [place] [address] from Last 3 Months Insurance MEDICAID [place] Care Teams Last Greaser Relationship Specialty Start Date End Date Darrell Lo MD [address] [place] [address] PCP - General Primary Care 01/21/24 Jarad Rasheed MD [address] [place] [address] Consulting Physician Urology 01/19/24
--- OUTSIDE RECORDS SUMMARY | 2024-04-25 12:22 | XMS_ITS | Clinical Summary ---
Author Organization [facility] Office Address [address] [place], [place] [address] [address] Care Team Providers Care Underground Utility Locator Name Role Phone Darrell Melara DO Primary Care Provider [phone] Allergies Active Allergy Reactions Criticality Noted Date [...] on file Legal Sex Female 5:42 AM FOOD SERVICE HELPER Gender Identity Not on file Sexual Orientation Not on file Last Filed Vital Signs Vital Sign Reading Time Taken Comments Blood Pressure 104/64 05/10/2019 12:23 PM FOOD SERVICE HELPER Pulse 72 05/10/2019 12:23 PM FOOD SERVICE HELPER Temperature 36.5 C (97.7 F) 05/10/2019 12:23 PM FOOD SERVICE HELPER Respiratory Rate 18 09/01/2018 7:00 PM CDT Oxygen Saturation - - Inhaled Oxygen Concentration - - Weight 59.3 kg (130 lb 12.8 oz) 020 12:23 PM FOOD SERVICE HELPER Height 157.5 cm (5' 2 ) 05/10/2019 12:2 3 PM FOOD SERVICE HELPER Body Mass Index 23.92 05/10/2019 12:23 PM FOOD SERVICE HELPER Plan of Treatment Health Maintenance Due Date Last Done Comments DTAP/TDAP/TD VACCINES (5 - Tdap) 2009 07/28/1999, 1998, 1998, Additional history exists HPV VACCINES (3 - 2-dose series) 08/15/2009 04/18/19 10, 02/14/2009 CERVICAL CANCER SCREENING 2019 INFLUENZA VACCINE (#1) 2023 0, 02/26/2011, 02/14/2009, Additional history exists HEPATITIS B VACCINES Completed 1998, 1998, 1998 Care Teams Underground Utility Locator Relationship Specialty Start Date End Date Darrell Melara DO PCP - General 08/18/08
--- OUTSIDE RECORDS SUMMARY | 2024-04-25 12:22 | XMS_ITS | Encounter Summary ---
Author Organization [facility] Address [address] [place] [address] Phone Care Team Providers Care Ripper Operator Name Role Phone Jarad Rasheed MD Unavailable [phone] Darrell Lo MD Primary Care Provider [phone] Encounter Details Date Type Department Care Team (Late st Contact Info) Description 04/11/2024 Results Follow-Up [facility] [address] [place] [id number] Jarad Rasheed MD #2 [facility] [address] [address] Social History Tobacco Use Types Packs/Day Years [...] rx for abx. Thank you, Jarad Rasheed EXAMINER documented in this encounter Plan of Treatment Upcoming Encounters Date Type Department Care Team (Latest Contact Info) Description 05/09/2024 12:10 PM CAR EXAMINER Hospital Encounter [facility] Periop 1 [facility] [place] [address] Jarad Rasheed MD [address] [address] 05/09/2024 12:10 PM CAR EXAMINER - 05/09/2024 2:10 PM CAR EXAMINER [facility] 1 [facility] [place] [address] Jarad Rasheed MD #[address] [address] EXCISION OF URETHRAL MASS Scheduled Procedures Name Priority Associated Diagnoses Date/Ti me URETHRAL LESION EXCISION URINARY TRACT INFECTION SYMPTOMS 05/09/2024 12:10 PM CAR EXAMINER CYSTOSCOPY URINARY TRACT INFECTION SYMPTOMS 05/09/2024 12:10 PM CAR EXAMINER documented as of this encounter Visit Diagnoses Not on filedocumented in this encounter Care Teams Ripper Operator Relationship Specialty Start Date End Date Darrell Lo MD [address] [place] [address] PCP - General Primary Care 01/21/24 Jarad Rasheed MD [address] [address] Consulting Physician Urology 01/19/24 documented as of this encounter
--- OUTSIDE RECORDS SUMMARY | 2024-04-25 12:22 | XMS_ITS | Encounter Summary ---
Author Organization [facility] Address [address] [place] [address] Phone Care Team Providers Care Tow Mate Name Role Phone Jarad Rasheed MD Unavailable Darrell Lo MD Primary Care Provider [phone] Encounter Details Date Type Department Care Team (Late st Contact Info) Description 03/10/2024 Results Follow-Up [facility] [address] [place] [address] Jarad Rasheed MD #2 [facility] [address] [address] Social History Tobacco Use Types Packs/Day Years [...] 11:10 AM CST Patient informed and scheduled. MACHINE OPERATOR * Jarad Rasheed MD - 03/10/2024 9:12 AM CST Can you please let the patient know MRI shows a 1.5 cm cyst along the urethra. She will need surgical removal. Can we please set up an appointment with me so I can discuss surgical planning and details about surgery/recovery.. Thank you, Jarad Rasheed MACHINE OPERATOR documented in this encounter Plan of Treatment Upcoming Encounters Date Type Department Care Team (Latest Contact Info) Description 05/09/2024 12:10 PM GUM MACHINE OPERATOR [facility] 1 [place] [address] Jarad Rasheed MD #2 [facility] [address] [place] [address] 05/09/2024 12:10 PM GUM MACHINE OPERATOR - 05/09/2024 2:10 PM GUM MACHINE OPERATOR [facility] [address] [place] [address] Jarad Rasheed MD [address] [address] EXCISION OF URETHRAL MASS Scheduled Procedures Name Priority Associated Diagnoses Date/Ti me URETHRAL LESION EXCISION URINARY TRACT INFECTION SYMPTOMS 05/09/2024 12:10 PM GUM MACHINE OPERATOR CYSTOSCOPY URINARY TRACT INFECTION SYMPTOMS 05/09/2024 12:10 PM GUM MACHINE OPERATOR documented as of this encounter Visit Diagnoses Not on filedocumented in this encounter Care Teams Tow Mate Relationship Specialty Start Date End Date Darrell Lo MD [address] [place] [address] PCP - General Primary Care 01/21/24 Jarad Rasheed MD [address] [address] Consulting Physician Urology 01/19/24 documented as of this encounter
[2024-04-25 13:20] VITALS: BP 116/73; PULSE 67; RESP 16; O2SAT 100
== END 2024-04-25 13:20 | disposition home or self-care (01) ==
PROVIDERS: Emergency Provider Emergency Medicine
DX: S09.90XA Unspecified injury of head, initial encounter (principal); S79.911A Unspecified injury of right hip, initial encounter; S49.92XA Unspecified injury of left shoulder and upper arm, initial encounter; W07.XXXA Fall from chair, initial encounter
CPT/HCPCS: 70450; 70486; 73030; 73502; 99284

== ENCOUNTER 2024-08-25 09:49 | Emergency (ER) | payer MEDICAID, SELFPAY ==
--- NOTE | ~2024-08-25 | XR_ITS ---
EXAMINATION: XR chest 2V DATE: 08/25/2024 10:43 INDICATION: Left-sided chest pain TECHNIQUE: PA and lateral views of the chest were obtained. COMPARISON: None FINDINGS: The lungs are clear with no focal airspace opacities, pulmonary edema, pleural effusion or pneumothor ax. The cardiomediastinal silhouette is normal. Mild upper thoracic dextrocurvature and thoracal lumb ar levocurvature with mild midthoracic spondylosis. IMPRESSION: 1. No acute cardiopulmonary disease. Reviewed, dictated and finalized at location A.
--- NOTE | 2024-08-25 09:57 | ECG_ITS ---
Test Date: 2024-08-25 10:01:07 Measurements Intervals [place] Rate: 66 P: 3 AK: 179 QRS: 45 QRSD: 93 T: 42 QT: 420 QTc: 442 Interpretive Statements ECTOPIC ATRIAL RHYTHM CHANGES TO SINUS RHYTHM INCOMPLETE RIGHT BUNDLE BRANCH BLOCK ABNORMAL ECG No previous ECG available for comparison Electronically Signed On 08-25-2024 10:44:02 CDT by Bertrand Garcia D.O.
[2024-08-25 10:01] VITALS: BP 140/91; PULSE 62; RESP 16; TEMP 36.8; O2SAT 99
[2024-08-25 10:17] VITALS: BP 125/63; PULSE 43; RESP 11; O2SAT 100
[2024-08-25 10:17] LABS: Basophils Percent Auto 0.2 % (0.2-1.2); Eosinophils Percent Auto 0.8 % (0-4.4); Hematocrit 39.5 % (37.0-47.0); Hemoglobin 13.3 g/dL (12.0-15.0); Lymphocytes Absolute Auto 2.17 K/mm3 (0.9-3.2); Lymphocytes Percent Auto 40.7 % (18.3-44.2); Mean Corpuscular HGB Conc 33.7 g/dl (32-36); Mean Platelet Volume 12.1 fl (7.4-10.4); Monocytes Absolute Auto 0.4 K/mm3 (0.1-0.6); Monocytes Percent Auto 7.7 % (2.6-8.5); Neutrophils Absolute Auto 2.7 K/mm3 (1.3-6.7); Neutrophils Percent Auto 50.6 % (45.5-73.1); Platelet Count Result 142 k/mm3 (150-375); Red Blood Count 4.44 M/mm3 (4.2-5.4); Red Cell Distribution Width 12.8 % (11.5-14.5); White Blood Count 5.3 K/mm3 (4.5-10.0)
[2024-08-25 10:29] LABS: Alanine Aminotransferase 12 U/L (6-35); Albumin Level 4.5 g/dL (3.5-5.1); Alkaline Phosphatase 32 U/L (38-126); Anion Gap 9 mmol/L (4-12); Aspartate Amino Transferase 17 U/L (14-36); Bilirubin,Total 0.6 mg/dL (0.2-1.3); Blood Urea Nitrogen 9 mg/dL (7-17); Calcium 9.6 mg/dL (8.4-10.2); Carbon Dioxide 22 mmol/L (22-30); Chloride 106 mmol/L (98-107); Estimated Glomerular Filt Rate > 60; Glucose 96 mg/dL (65-110); Lipase 84 U/L (23-300); Potassium 4.2 mmol/L (3.4-5.0); Sodium 137 mmol/L (137-145); Total Protein 7.3 g/dL (6.3-8.2)
[2024-08-25 10:30] LABS: INR 1.1; Prothrombin Time 14.2 Seconds (11.1-14.7)
[2024-08-25 10:31] VITALS: BP 115/81; PULSE 45; RESP 13; O2SAT 100
[2024-08-25 10:31] LABS: Partial Thromboplastin Time 34.5 Seconds (22.3-36.8)
[2024-08-25 10:41] LABS: Troponin I < 0.012 ng/mL (0.000-0.034)
[2024-08-25] MEDS: SODIUM CHLORIDE 0.9% IV 1,000 ML 999 ML IV CONT (10:58)
--- NOTE | 2024-08-25 10:58 | ED_ITS ---
HPI - Chest Pain General Chief Complaint: Chest Pain Stated Complaint: CHEST PAIN SINCE LAST NIGHT Time Seen by Provider: 08/25/24 09:57 Source: patient Mode of arrival: ambulatory Limitations: no limitations History of Present Illness HPI narrative: This is a 24 year old female that presents to the ER for a pre-syncopal episode. Reports she was smoking weed last night. She stood up and felt lightheaded, hot, her legs felt weak, she felt tingling in her face. Reports today she just does not feel right. She has left sided chest discomfort and feels short of breath. Related Data Allergies Allergy/AdvReac Type Severity Reaction Status Date / Time sulfamethoxazole (From Allergy Hives Verified 08/25/24 10:27 Bactrim) tioconazole (From Monistat 1 Allergy Swelling Verified 08/25/24 10:27 (tioconazole)) trimethoprim (From Bactrim) Allergy Hives Verified 08/25/24 10:27 latex AdvReac Intermediate Hives Verified 08/25/24 10:27 [facility] Past Medical History Medical History Bicuspid aortic valve Surgical History Surgical History No pertinent past surgical history Social History Social History Smoking packs per day: 0.5 Smoking cigarettes per day: 10.0 Years smoked: 7 Smoking pack-years: 3.50 Smoking status: Former smoker Tobacco type: cigarettes Smoking end date: 05/12/23 Alcohol intake: current Drinks per week: 3 Substance use: current Substance use type: marijuana Living arrangements: with family Additional living arrangements comments: BOYFRIEND Gender identity (if verbalized by the patient): Female Spiritual care concerns: No Course Course Emergency Course: patient updated on her workup. Reports she is ready for discharge. She was scheduled to see her practice business asst today which was cancelled as they told her to come here. She did have an Echo yesterday which she will review with her practice business asst Vital Signs Vital signs: Vital Signs Temperature 98.2 F 08/25/24 10:01 Pulse Rate 62 08/25/24 10:01 Respiratory Rate 16 08/25/24 10:01 Blood Pressure 140/91 H 08/25/24 10:01 Pulse Oximetry 99 08/25/24 10:01 Oxygen Delivery Room Air 08/25/24 10:01 Temperature 98.2 F 08/25/24 10:01 Pulse Rate 47 L 08/25/24 11:32 Respiratory Rate 15 08/25/24 11:32 Blood Pressure 124/72 08/25/24 11:32 Pulse Oximetry 100 08/25/24 11:32 Oxygen Delivery Room Air 08/25/24 10:01 MDM - Chest Pain MDM Narrative Medical decision making narrative: Patient presents to the emergency department for a presyncopal episode last night. Endorsing some chest discomfort today. She is afebrile and nontoxic appearing. Her vitals are stable. Patient is bradycardic, which does not appear new for her based on our previous vital signs. CBC and metabolic panel without concerning findings. Chest x-ray without acute cardiopulmonary abnormality. EKG without acute ST changes, baseline troponin is negative. D-dimer is not elevated. Patient updated on her workup. Reports she is ready for discharge. She was scheduled to see her practice business asst today which was cancelled as they told her to come here. She did have an Echo yesterday which she will review with her practice business asst. Instructed to have close follow up with her practice business asst, she was given warnings to return to the ER Differential Diagnosis Differential diagnosis: Likely pneumothorax, stable angina, unstable angina pectoris, atypical chest pain, costochondritis and other (anxiety, arrhythmia, adverse reaction to drug, presyncope, electrolyte derangement, dehydration) Lab Data Attestation: I reviewed the patient's lab results. 08/25/24 10:09 08/25/24 10:09 Labs: Lab Results 08/25/24 Range/Units 10:09 WBC 5.3 (4.5-10.0) K/mm3 RBC 4.44 (4.2-5.4) M/mm3 Hgb 13.3 (12.0-15.0) g/dL Hct 39.5 (37.0-47.0) % MCV 89.0 (80-100) fl MCH 30.0 (26-34) pg MCHC 33.7 (32-36) g/dl RDW 12.8 (11.5-14.5) % Plt Count 142 L (150-375) k/mm3 MPV 12.1 H (7.4-10.4) fl Immature Gran % (Auto) 0.0 (0-0.5) % Neut % (Auto) 50.6 (45.5-73.1) % Lymph % (Auto) 40.7 (18.3-44.2) % [place] % (Auto) 7.7 (2.6-8.5) % Eos % (Auto) 0.8 (0-4.4) % Baso % (Auto) 0.2 (0.2-1.2) % Lymph # (Auto) 2.17 (0.9-3.2) K/mm3 [place] # (Auto) 0.4 (0.1-0.6) K/mm3 Eos # (Auto) 0.0 (0-0.3) K/mm3 Baso # (Auto) 0.0 (0.0-0.1) K/mm3 Abs Immat Gran (auto) 0.00 (0.00-0.031) K/mm3 Absolute Neuts (auto) 2.7 (1.3-6.7) K/mm3 Absolute Nucleated RBC 0.000 (0.0-0.012) K/mm3 Nucleated RBC % 0.0 (0.0-0.2) % PT 14.2 (11.1-14.7) Seconds INR 1.1 APTT 34.5 (22.3-36.8) Seconds D-Dimer 0.28 (<0.48) ug/mL Sodium 137 (137-145) mmol/L Potassium 4.2 (3.4-5.0) mmol/L Chloride 106 (98-107) mmol/L Carbon Dioxide 22 (22-30) mmol/L Anion Gap 9 (4-12) mmol/L BUN 9 (7-17) mg/dL Creatinine 0.58 L (0.7-1.0) mg/dL Estim Creat Clear Calc Not Reportable Estimated GFR > 60 (59 - ) Glucose 96 (65-110) mg/dL Calcium 9.6 (8.4-10.2) mg/dL Total Bilirubin 0.6 (0.2-1.3) mg/dL AST 17 (14-36) U/L ALT 12 (6-35) U/L Alkaline Phosphatase 32 L (38-126) U/L Troponin I < 0.012 (0.000-0.034) ng/mL Total Protein 7.3 (6.3-8.2) g/dL Albumin 4.5 (3.5-5.1) g/dL Lipase 84 (23-300) U/L Imaging Data Radiologist's impression: ITS Impressions Chest X-Ray 08/25/24 10:47 IMPRESSION: 1. No acute cardiopulmonary disease. ECG Data EKG #1: ECG completion date: 08/25/24 EKG Interpretation: bradycardia, sinus rhythm, no ST changes and normal QT Critical Care Time Critical Care Time Critical Care Time: No Discharge Plan Discharge Clinical Impression: Chest pain Qualifiers: Chest pain type: unspecified Qualified Code(s): R07.9 - Chest pain, unspecified Adverse effect of drug Qualifiers: Encounter type: initial encounter Qualified Code(s): T50.905A - Adverse effect of unspecified drugs, medicaments and biological substances, initial encounter Patient Disposition: Home Condition: Improved Instructions: Chest Pain (ED) Additional Instructions: Return to the emergency department if you experience fever, chest pain, shortness of breath, abdominal pain with nausea and vomiting, weakness, numbness, you pass out, or any other symptoms that are concerning to you. Rest. Remain well hydrated Follow up with your practice business asst for further management Patient Language: Fijian Prescriptions: No Action hydrocodone-acetaminophen 5-325 mg tablet 1 tablet PO Q4H PRN (Reason: pain) Qty: 30 0RF benzonatate 100 mg capsule 100 mg PO TID PRN (Reason: cough) Qty: 14 0RF Follow-up/Referrals: UNKNOWN,DOCTOR [Primary Care Provider] - Christina Palma MD [Physician] - Quality HEART score for chest pain patients History: slightly suspicious ECG: non specific repolarization disturbance/LBTB/PM Age: < or = to 45 years Risk factors: no risk factors known Troponin: < or = to 1x normal limit Heart score: 1
[2024-08-25 10:59] VITALS: BP 116/75; PULSE 47; RESP 15; O2SAT 100
[2024-08-25 11:01] VITALS: BP 121/75; PULSE 44; RESP 8; O2SAT 99
[2024-08-25 11:17] LABS: D Dimer 0.28 ug/mL (<0.48)
[2024-08-25 11:32] VITALS: BP 124/72; PULSE 47; RESP 15; O2SAT 100
== END 2024-08-25 13:12 | disposition home or self-care (01) ==
PROVIDERS: Emergency Provider Physician Assistant
DX: R07.9 Chest pain, unspecified (principal); T50.905A Adverse effect of unspecified drugs, medicaments and biological substances, initial encounter; Z87.891 Personal history of nicotine dependence
CPT/HCPCS: 36415; 71046; 80053; 83690; 84484; 85025; 85380; 85610; 85730; 93005; 96360; 99284; J7030

== ENCOUNTER 2024-09-15 08:06 | Emergency (ER) | payer MEDICAID, SELFPAY ==
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
[2024-09-15 08:10] VITALS: BP 114/77; PULSE 70; RESP 14; TEMP 36.8; O2SAT 99
[2024-09-15] MEDS: KETOROLAC (*BKC) 60 MG/2 ML VIAL IM (08:30)
== END 2024-09-15 08:51 | disposition home or self-care (01) ==
PROVIDERS: Emergency Provider Nurse Practitioner Family
DX: M54.42 Lumbago with sciatica, left side (principal); Z87.891 Personal history of nicotine dependence
CPT/HCPCS: 96372; 99213; G0463; J1885

== ENCOUNTER 2024-10-11 12:33 | Emergency (ER) | payer MEDICAID, SELFPAY ==
[2024-10-11 12:40] VITALS: BP 120/80; PULSE 67; RESP 18; TEMP 37.2; O2SAT 100
[2024-10-11] MEDS: ONDANSETRON HCL ODT 4 MG TABLET 8 MG SUBLINGUAL (12:56)
[2024-10-11] MEDS: KETOROLAC (*BKC) 60 MG/2 ML VIAL IM (12:57)
--- NOTE | 2024-10-11 13:06 | ED.URI ---
HPI - URI/Sore Throat General Chief Complaint: Upper Respiratory Infection Stated Complaint: COVID+ Time Seen by Provider: 10/11/24 12:45 Source: patient Mode of arrival: ambulatory Limitations: no limitations History of Present Illness HPI Narrative: Tana is a 24-year-old female patient presenting to the clinic today with complaints of nasal congestion, headache, and nausea for the past 5 days. Took at home COVID test last night and was positive. Denies any known fevers, chills, body aches. Denies any chest pain or shortness of breath. Has taken Tylenol, ibuprofen, and Aleve for the headache with mild relief. Rates pain currently is 6/10 over the temples and to the top of the head. Last took ibuprofen last night. Related Data Allergies Allergy/AdvReac Type Severity Reaction Status Date / Time sulfamethoxazole (From Allergy Hives Verified 10/11/24 12:40 Bactrim) tioconazole (From Monistat 1 Allergy Swelling Verified 10/11/24 12:40 (tioconazole)) trimethoprim (From Bactrim) Allergy Hives Verified 10/11/24 12:40 latex AdvReac Intermediate Hives Verified 10/11/24 12:40 Review of Systems Review of Systems: Pertinent positives per HPI. Patient denies any fever, chills, rash, visual changes, dizziness, cough, shortness of breath, chest pain, palpitations, nausea, vomiting, diarrhea, constipation, abdominal pain, or any urinary issues. PMFSH Past Medical History Medical History Bicuspid aortic valve Surgical History Surgical History No pertinent past surgical history Social History Social History Smoking packs per day: 0.5 Smoking cigarettes per day: 10.0 Years smoked: 7 Smoking pack-years: 3.50 Smoking status: Former smoker Tobacco type: cigarettes Smoking end date: 05/12/23 Alcohol intake: current Drinks per week: 3 Substance use: current Substance use type: marijuana Living arrangements: with family Additional living arrangements comments: BOYFRIEND Gender identity (if verbalized by the patient): Female Spiritual care concerns: No Comments At the time of my signature, I reviewed and agree with the nursing past medical, surgical, social, and family history. There is no relevant family history pertinent to the patient complaint. Exam Narrative: General: Well-developed, well nourished, in no apparent distress Head: Normocephalic, atraumatic Eyes: Pupils equally round and reactive to light bilaterally, EOM intact, sclera and conjunctive clear, no discharge, lids normal Ears: TMs intact and clear, ear canals clear, no drainage, grossly hearing normal. Nose: Nares patent, clear nasal discharge, mild inflammation, no sinus tenderness. Mouth: Oral pharynx without lesions or masses, good dentition, MMM. Postnasal drip Neck: Supple, trachea midline, no enlargement of anterior or posterior cervical nodes, no thyroid masses or goiter palpable. Cardio: Regular rate and rhythm, s1 and s2 normal, no murmur appreciated. Resp: Clear to auscultation bilaterally, no rhonchi, rales, wheezing or rubs Course Course Emergency Course: Portions of this record may have been created with voice recognition software. Level of Care: Express Care Visit Vital Signs Vital signs: Vital Signs Temperature 37.2 C 10/11/24 12:40 Pulse Rate 67 10/11/24 12:40 Respiratory Rate 18 10/11/24 12:40 Blood Pressure 120/80 10/11/24 12:40 Pulse Oximetry 100 10/11/24 12:40 Oxygen Delivery Room Air 10/11/24 12:40 Temperature 37.2 C 10/11/24 12:40 Pulse Rate 67 10/11/24 12:40 Respiratory Rate 18 10/11/24 12:40 Blood Pressure 120/80 10/11/24 12:40 Pulse Oximetry 100 10/11/24 12:40 Oxygen Delivery Room Air 10/11/24 12:40 Vital signs reviewed MDM - URI/Sore Throat MDM Narrative Medical decision making narrative: At the time of visit patient is resting comfortably on the exam table. Patient appears to be nontoxic. complaints of nasal congestion, headache, and nausea for the past 5 days. Took at home COVID test last night and was positive. Denies any known fevers, chills, body aches. Denies any chest pain or shortness of breath. Has taken Tylenol, ibuprofen, and Aleve for the headache without relief. Rates pain currently is 6/10 over the temples and to the top of the head. Toradol 60 mg IM and Zofran 8 mg ODT ordered. Medications: Toradol 60 mg IM and Zofran 8 mg ODT given in the clinic today. Plan: Patient has COVID-19 with acute headache, nausea, and nasal congestion. Supportive measures were discussed with the patient and they voiced understanding discharge instructions and agrees to treatment plan. Return precautions reviewed Differential Diagnosis Differential diagnosis: Likely upper respiratory infection, otitis media, sinusitis, viral infection, bronchitis, influenza, pharyngitis and other (COVID) Discharge Plan Discharge Clinical Impression: COVID-19 Headache Qualifiers: Headache type: unspecified Headache chronicity pattern: acute headache Intractability: not intractable Qualified Code(s): R51.9 - Headache, unspecified Nausea & vomiting Qualifiers: Vomiting type: unspecified Qualified Code(s): R11.2 - Nausea with vomiting, unspecified Patient Disposition: Home Condition: Stable Instructions: Antibiotic Form, Acute Headache (ED), Acute Nausea and Vomiting (ED), How to Recover from COVID-19 at Home (ED) Additional Instructions: Toradol 60 mg IM and 8 mg of ondansetron by mouth given in the clinic today Take prescription medications only as prescribed-ondansetron Increase fluids and stay well hydrated Tylenol/motrin for pain/fever as per bottle directions Flonase 1 spray in each nare daily and OTC antihistamines such as Zyrtec or Claritin 10 mg daily as directed Vicks vapor rub to open sinuses Sinus rinses for congestion Cepacol spray, cough drops, throat lozenges, warm tea with honey/lemon, gargle salt water to soothe throat BRAT diet for diarrhea Clear liquids x 24 hours then advance as tolerated for nausea/vomiting Go to the ED if you develop a worsening in your condition- high fever not controlled by Tylenol or Motrin, dehydration, weakness, lethargy, shortness of breath, or chest pain. Follow up with your PCP in 3-5 days if symptoms persist. Patient Language: Chinese Prescriptions: New ondansetron 8 mg tablet,disintegrating 8 mg PO Q8H PRN (Reason: nausea and vomiting) 3 Days Qty: 10 0RF Follow-up/Referrals: PHYSICIAN,RUG DRYING MACHINE OPERATOR [Primary Care Provider] - Stand Alone Forms: Work/School Release IP Time of Disposition: 13:08 Quality NIHSS Nursing Documentation ED NIHSS nursing documentation: reviewed/agree
== END 2024-10-11 13:25 | disposition home or self-care (01) ==
PROVIDERS: Emergency Provider Nurse Practitioner Family
DX: U07.1 COVID-19 (principal); R51.9 Headache, unspecified; R11.2 Nausea with vomiting, unspecified; Z87.891 Personal history of nicotine dependence; Q23.81 Bicuspid aortic valve
CPT/HCPCS: 96372; 99213; A9270; G0463; J1885

== ENCOUNTER 2024-10-26 11:39 | Emergency (ER) | payer MEDICAID, SELFPAY ==
[2024-10-26 11:50] VITALS: BP 124/71; PULSE 67; RESP 18; TEMP 36.8; O2SAT 100
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
== END 2024-10-26 12:13 | disposition home or self-care (01) ==
DX: M54.32 Sciatica, left side (principal); Z87.891 Personal history of nicotine dependence; F12.90 Cannabis use, unspecified, uncomplicated; Q23.81 Bicuspid aortic valve
CPT/HCPCS: 99213; G0463

== ENCOUNTER 2024-12-14 05:26 | Emergency (ER) | payer MEDICAID, SELFPAY ==
[2024-12-14] VITALS (7 sets, daily range): BP systolic 111–123; BP diastolic 63–93; PULSE 50–62; RESP 14–20; TEMP 36.3–36.8; O2SAT 100
--- NOTE | ~2024-12-14 | XR_ITS ---
EXAMINATION: XR shoulder LT min 2V, 12/14/2024 7:50 CDT HISTORY: LT POSTERIOR shoulder pain, no recent injury; COMPARISON: No comparisons available. Findings: No acute fracture or malalignment. No significant degenerative changes. Soft tissues unremarkable. Impression: No acute fracture or malalignment. Reviewed, dictated and finalized at location P. Impression: No acute fracture or malalignment.
--- NOTE | 2024-12-14 08:49 | ED_ITS ---
HPI - General Adult General Chief complaint: Extremity Injury, Upper Stated complaint: Shoulder pain, no recent injury Time Seen by Provider: 12/14/24 08:30 History of Present Illness HPI narrative: 24-year-old female is approximately 5 weeks presents to the emergency department for evaluation for left trapezius strain. Patient reports he has had this issue before. Patient reports this been bothering her for the last few days. Patient has not taken any medications for pain control including Tylenol. Patient denies any associated numbness or weakness. Patient states she has pain left lateral trapezius into her shoulder and into her neck. Patient denies any specific incident of fall or injury. Related Data Allergies Allergy/AdvReac Type Severity Reaction Status Date / Time sulfamethoxazole (From Allergy Hives Verified 12/14/24 05:28 Bactrim) tioconazole (From Monistat 1 Allergy Swelling Verified 12/14/24 05:28 (tioconazole)) trimethoprim (From Bactrim) Allergy Hives Verified 12/14/24 05:28 latex AdvReac Intermediate Hives Verified 12/14/24 05:28 Review of Systems Review of Systems: All systems reviewed & are unremarkable except as noted in HPI and below PMFSH Past Medical History Medical History Bicuspid aortic valve Surgical History Surgical History No pertinent past surgical history Social History Social History Smoking packs per day: 0.5 Smoking cigarettes per day: 10.0 Years smoked: 7 Smoking pack-years: 3.50 Smoking status: Former smoker Tobacco type: cigarettes Smoking end date: 05/12/23 Alcohol intake: current Drinks per week: 3 Substance use: current Substance use type: marijuana Living arrangements: with family Additional living arrangements comments: BOYFRIEND Gender identity (if verbalized by the patient): Female Spiritual care concerns: No Exam Narrative: APPEARANCE: Well appearing, no pain, no distress, well-nourished. HEAD: normocephalic, atraumatic. EYES: PERRLA/EOMI, conjunctivae clear. NOSE: Normal no drainage EARS:TMS clear with good light reflex. THROAT: Pharynx clear, no exudate. NECK: Supple. No adenopathy, no masses. RESPIRATORY: Airway patent, respirations nonlabored. Clear to auscultation bilaterally, no rales, rhonchi, wheezing. CARDIOVASCULAR: Regular rate and rhythm without murmurs rubs or gallops. ABDOMINAL: Soft, nontender, nondistended, normal bowel sounds MUSCULOSKELETAL: Left lateral trapezius strain NEURO: Alert. Cranial nerves II through XII intact. Good gait. Good coordination SKIN: Warm, dry. Normal Color PSYCHIATRIC: Normal affect/mood. Course Vital Signs Vital signs: Vital Signs Temperature 98.2 F 12/14/24 05:43 Pulse Rate 52 L 12/14/24 05:43 Respiratory Rate 14 12/14/24 05:43 Blood Pressure 120/81 12/14/24 05:43 Pulse Oximetry 100 12/14/24 05:43 Oxygen Delivery Room Air 12/14/24 05:43 Temperature 97.3 F L 12/14/24 07:32 Pulse Rate 52 L 12/14/24 09:37 Respiratory Rate 14 12/14/24 09:37 Blood Pressure 117/72 12/14/24 09:37 Pulse Oximetry 100 12/14/24 09:37 Oxygen Delivery Room Air 12/14/24 05:43 Medical Decision Making MDM Narrative Medical decision making narrative: 24-year-old female present emergency department for evaluation trapezius strain into the cervical portion the trapezius. Patient has not tried any medications for pain control at home. Patient states she did attempt to follow-up with chiropractor. Patient will be started Tylenol for pain control. Patient is also encouraged to heating pad and gentle stretching and have close follow-up with her physicians. I initially did discuss the potential of doing diazepam for her but with ultimately I did not feel this was not worth the risk to the fetus. Patient was comfortable plan for discharge and close follow-up. All questions concerns were addressed. Differential Diagnosis Differential Diagnosis: Cervical radiculopathy, trapezius strain, pneumonia, torticollis Vital Signs Vital Signs: Vital Signs Temperature 98.2 F 12/14/24 05:43 Pulse Rate 52 L 12/14/24 05:43 Respiratory Rate 14 12/14/24 05:43 Blood Pressure 120/81 12/14/24 05:43 Pulse Oximetry 100 12/14/24 05:43 Oxygen Delivery Room Air 12/14/24 05:43 Temperature 97.3 F L 12/14/24 07:32 Pulse Rate 52 L 12/14/24 09:37 Respiratory Rate 14 12/14/24 09:37 Blood Pressure 117/72 12/14/24 09:37 Pulse Oximetry 100 12/14/24 09:37 Oxygen Delivery Room Air 12/14/24 05:43 Discharge Plan Discharge Clinical Impression: Strain of cervical portion of left trapezius muscle Patient Disposition: Home Condition: Stable Instructions: Antibiotic Form, Muscle Strain (DC) Additional Instructions: Tylenol for pain control. Gentle heating pad as directed. And gentle stretching directed. Have close follow-up with her primary care physician and with OB Gyne Patient Language: Korean Prescriptions: No Action prednisone 20 mg tablet 40 mg PO DAILY 5 Days Qty: 10 0RF Follow-up/Referrals: UNKNOWN,DOCTOR [Primary Care Provider]
[2024-12-14] MEDS: ACETAMINOPHEN 325 MG TABLET 650 MG PO (09:08)
== END 2024-12-14 10:11 | disposition home or self-care (01) ==
PROVIDERS: Emergency Provider Emergency Medicine
DX: O9A.211 Injury, poisoning and certain other consequences of external causes complicating pregnancy, first trimester (principal); S16.1XXA Strain of muscle, fascia and tendon at neck level, initial encounter; O99.891 Other specified diseases and conditions complicating pregnancy; Q23.81 Bicuspid aortic valve; Z87.891 Personal history of nicotine dependence; Z3A.01 Less than 8 weeks gestation of pregnancy; X58.XXXA Exposure to other specified factors, initial encounter
CPT/HCPCS: 73030; 99283; A9270

== ENCOUNTER 2024-12-25 13:24 | Emergency (ER) | payer MEDICAID, SELFPAY ==
--- NOTE | ~2024-12-25 | US_ITS ---
EXAMINATION: US OB <=14 wk fetus w TV DATE: 12/25/2024 16:39 INDICATION: Lower abdominal pain and syncope during early first trimester TECHNIQUE: Real-time pelvic ultrasound utilizing both a transvaginal and transabdominal probe was performed. The interpreting radiologist was not present for the study. COMPARISON: None. FINDINGS: The uterus measures 9.2 x 5.5 x 4.8 cm. There is an intrauterine gestational sac. A yolk sac and pole are identified. The crown rump length measures 7 mm, which correlates with an estimated gestational age of 6 weeks and 4 days. heart motion is identified measuring 114 beats per minute (bpm) by M-mode Doppler. 1.1 x 0.9 x 0.5 cm anechoic subchorionic hematoma along the right side of the gestational sac. 4 mm nabothian cyst at the cervix. The right ovary measures 2.5 x 2.5 x 1.5 cm. The left ovary measures 3.6 x 2.2 x 2.0 cm. /Or flow identified in both ovaries on color Doppler. There is vascular flow at the periphery of a 2.0 cm isoechoic likely corpus luteum cyst in the left ovary. There is minimal amount of likely physiologic anechoic free fluid in the cul-de-sac. IMPRESSION: 1. Single living fetus with heart rate of 114 bpm. 2. Gestational age by ultrasound of 6 weeks 4 day(s) +/- 4 day(s) with ultrasound estimated date of delivery (MAURO) of 08/16/2025. 3. Small subchorionic hematoma. Reviewed, dictated and finalized at location A. IMPRESSION: 1. Single living fetus with heart rate of 114 bpm. 2. Gestational age by ultrasound of 6 weeks 4 day(s) +/- 4 day(s) with ultraso und estimated date of delivery (MAURO) of 08/16/2025. 3. Small subchorionic hematoma.
[2024-12-25 13:26] VITALS: BP 110/71; PULSE 69; RESP 18; TEMP 37; O2SAT 98
--- NOTE | 2024-12-25 14:53 | ED.SYNCOPE ---
HPI - Syncope General Chief Complaint: Syncope <JUAN R Hawkins Filed: 12/25/24 15:02> Stated Complaint: dizziness, syncope, N/V. 5 weeks <JUAN R Hawkins Last Filed: 12/25/24 15:02> Time Seen by Provider: 12/25/24 14:53 <JUAN R Hawkins Last Filed: 12/25/24 15:02> Focused HPI: Patient is a 24 y/o female who presents to the ED with c/o syncope. Patient reports she has been feeling intermittently dizzy over the past couple of days. Dizziness seem to be worse today. She was sitting at her table eating breakfast with her brother when her heart began racing, she became increasingly dizzy and had a syncopal episode. Her brother reported that she lost consciousness for a couple of seconds. She did not fall or hit her head. Did have episode of emesis after this syncopal episode. Patient reports she is 5-6 weeks gestation. has been confirmed by blood testing. LNMP Nov 06. Hx of multiple previous miscarriages. OBGYN = Dr. Lorne Sanchez. Patient reports having pain throughout her left flank region for the past 2-3 days, lower abdominal pain, urinary frequency, dysuria, intermittent nausea and vomiting. She is able to keep down some fluids. Denies fevers. GENERAL: Well-appearing, well-nourished, and in no acute distress. HEAD: Normocephalic, atraumatic. CHEST: Clear to auscultation. ?No respiratory distress. HEART: Regular rate and rhythm.? NEURO: ?Alert and oriented x3. Patient screened in triage and initial orders placed.? ?Additional care and disposition to be based upon?diagnostic testing and treatment. <JUAN R Hawkins Filed: 12/25/24 15:02> Source: patient <JUAN R Hawkins Filed: 12/25/24 15:02> Mode of arrival: ambulatory <JUAN R Hawkins Filed: 12/25/24 15:02> Limitations: no limitations <JUAN R Hawkins Last Filed: 12/25/24 15:02> History of Present Illness HPI narrative: Agree with HPI <Boris Parada MD - Last Filed: 12/25/24 22:37> Related Data Allergies/Adverse Reactions: Allergies Allergy/AdvReac Type Severity Reaction Status Date / Time sulfamethoxazole (From Allergy Hives Verified 12/25/24 17:05 Bactrim) tioconazole (From Monistat 1 Allergy Swelling Verified 12/25/24 17:05 (tioconazole)) trimethoprim (From Bactrim) Allergy Hives Verified 12/25/24 17:05 latex AdvReac Intermediate Hives Verified 12/25/24 17:05 <Norma Vitale PA-C - Last Filed: 12/25/24 15:02> Review of Systems Review of Systems: Gen.: Denies fevers or chills Eyes: Denies eye pain or visual change ENT: Denies congestion Respiratory: Denies shortness of breath or cough CV: Denies chest pain or palpitations GI: As per HPI denies burning, urgency, frequency or hematuria Musculoskeletal: Denies back pain or muscle pain Neuro: Denies numbness, tingling, weakness or focal weakness Skin: Denies rash Except as documented, all other systems reviewed and negative <Boris Parada MD - Last Filed: 12/25/24 22:37> PMFSH Past Medical History Medical History: Medical History Bicuspid aortic valve <Norma Vitale PA-C - Last Filed: 12/25/24 15:02> Surgical History Surgical History: Surgical History No pertinent past surgical history <Norma Vitale PA-C - Last Filed: 12/25/24 15:02> Social History Social History: Social History Smoking packs per day: 0.5 Smoking cigarettes per day: 10.0 Years smoked: 7 Smoking pack-years: 3.50 Smoking status: Former smoker Tobacco type: cigarettes Smoking end date: 05/12/23 Alcohol intake: current Drinks per week: 3 Substance use: current Substance use type: marijuana Living arrangements: with family Additional living arrangements comments: BOYFRIEND Gender identity (if verbalized by the patient): Female Spiritual care concerns: No <Norma Vitale PA-C - Last Filed: 12/25/24 15:02> Exam Narrative: APPEARANCE: No acute distress, nontoxic, resting in bed EYES: EOMI HEENT: Normocephalic, atraumatic, OMM RESPIRATORY: No respiratory distress Clear to auscultation bilaterally with no rhonchi wheezing or rales. CARDIOVASCULAR: Regular rate and rhythm without murmurs rubs or gallops. ABDOMINAL: Soft, nontender, nondistended, no rebound or guarding. CVA tenderness on the left MUSCULOSKELETAl: Moves all extremities. No clubbing, cyanosis or edema. NEURO: Awake and alert. Following commands, speech normal, no focal deficits SKIN:: Warm, dry. No rashes lesions or abrasions PSYCHIATRIC: Normal affect/mood, <Boris Parada MD - Last Filed: 12/25/24 22:37> Course Vital Signs Vital signs: Vital Signs Temperature 98.6 F 12/25/24 13:26 Pulse Rate 69 12/25/24 13:26 Respiratory Rate 18 12/25/24 13:26 Blood Pressure 110/71 12/25/24 13:26 Pulse Oximetry 98 12/25/24 13:26 Oxygen Delivery Room Air 12/25/24 13:26 Temperature 98.6 F 12/25/24 13:26 Pulse Rate 59 L 12/25/24 17:50 Respiratory Rate 18 12/25/24 17:50 Blood Pressure 109/79 12/25/24 17:50 Pulse Oximetry 100 12/25/24 17:50 Oxygen Delivery Room Air 12/25/24 17:00 <Norma Vitale PA-C - Last Filed: 12/25/24 15:02> Vital Signs Temperature 98.6 F 12/25/24 13:26 Pulse Rate 69 12/25/24 13:26 Respiratory Rate 18 12/25/24 13:26 Blood Pressure 110/71 12/25/24 13:26 Pulse Oximetry 98 12/25/24 13:26 Oxygen Delivery Room Air 12/25/24 13:26 Temperature 98.6 F 12/25/24 13:26 Pulse Rate 59 L 12/25/24 17:50 Respiratory Rate 18 12/25/24 17:50 Blood Pressure 109/79 12/25/24 17:50 Pulse Oximetry 100 12/25/24 17:50 Oxygen Delivery Room Air 12/25/24 17:00 <Boris Parada MD - Last Filed: 12/25/24 22:37> MDM - Syncope MDM Narrative Medical decision making narrative: MSE by EUSEBIO in triage. <Norma Vitale PA-C - Last Filed: 12/25/24 15:02> MSE by EUSEBIO in triage. 24-year-old female her approximately 6 weeks presenting for syncopal episode and flank pain. On initial evaluation, patient was in no acute distress, afebrile, hemodynamically stable. CBC and CMP were without significant abnormalities. Ultrasound was obtained which did show a intrauterine at approximately 6 weeks 4 days but also showed a sub chorionic hematoma. UA questionably consistent with a UTI. I discussed with STACIE Rob, recommended starting Prometrium 200 mg nightly, 81 mg aspirin daily, does agree to treat with Keflex for a possible UTI. Recommended being seen on Wednesday as currently scheduled. I discussed this with the patient and she is agreeable to this plan. Given strict return precautions. <Boris Parada MD - Last Filed: 12/25/24 22:37> Differential Diagnosis Differential diagnosis: Likely syncope due to orthostatic hypotension, vasovagal syncope, dehydration and other (Ruptured ectopic , pyelonephritis,) <Boris Parada MD - Last Filed: 12/25/24 22:37> Medical Records Attestation: I reviewed the patient's medical records. <Boris Parada MD - Last Filed: 12/25/24 22:37> Lab Data Attestation: I reviewed the patient's lab results. <Boris Parada MD - Last Filed: 12/25/24 22:37> Result diagrams: 12/25/24 15:10 12/25/24 15:10 <Norma Vitale PA-C - Last Filed: 12/25/24 15:02> Labs: Lab Results 1012/25/24 12/25/24 Range/Units 15:09 15:10 15:11 WBC 7.6 (4.5-10.0) K/mm3 RBC 4.38 (4.2-5.4) M/mm3 Hgb 13.2 (12.0-15.0) g/dL Hct 39.3 (37.0-47.0) % MCV 89.7 (80-100) fl MCH 30.1 (26-34) pg MCHC 33.6 (32-36) g/dl RDW 12.5 (11.5-14.5) % Plt Count 166 (150-375) k/mm3 MPV 11.1 H (7.4-10.4) fl Immature Gran % (Auto) 0.4 (0-0.5) % Neut % (Auto) 56.2 (45.5-73.1) % Lymph % (Auto) 31.2 (18.3-44.2) % Lee % (Auto) 10.1 H (2.6-8.5) % Eos % (Auto) 2.0 (0-4.4) % Baso % (Auto) 0.1 L (0.2-1.2) % Lymph # (Auto) 2.36 (0.9-3.2) K/mm3 Lee # (Auto) 0.8 H (0.1-0.6) K/mm3 Eos # (Auto) 0.2 (0-0.3) K/mm3 Baso # (Auto) 0.0 (0.0-0.1) K/mm3 Abs Immat Gran (auto) 0.03 (0.00-0.031) K/mm3 Absolute Neuts (auto) 4.3 (1.3-6.7) K/mm3 Absolute Nucleated RBC 0.000 (0.0-0.012) K/mm3 Nucleated RBC % 0.0 (0.0-0.2) % PT 13.8 (11.1-14.7) Seconds INR 1.1 APTT 34.8 (22.3-36.8) Seconds Sodium 135 L (137-145) mmol/L Potassium 3.9 (3.4-5.0) mmol/L Chloride 102 (98-107) mmol/L Carbon Dioxide 24 (22-30) mmol/L Anion Gap 9 (4-12) mmol/L BUN 11 (7-17) mg/dL Creatinine 0.53 L (0.7-1.0) mg/dL Estim Creat Clear Calc 112 ml/min Estimated GFR > 60 (59 - ) Glucose 93 (65-110) mg/dL Calcium 9.0 (8.4-10.2) mg/dL Total Bilirubin 0.5 (0.2-1.3) mg/dL AST 20 (14-36) U/L ALT 24 (6-35) U/L Alkaline Phosphatase 35 L (38-126) U/L Total Protein 7.1 (6.3-8.2) g/dL Albumin 4.3 (3.5-5.1) g/dL Beta HCG, Quant 65974.00 mIU/ML Urine Color Yellow (Yellow) Urine Appearance Clear (Clear) Urine pH 7.5 (5.0-9.0) Ur Specific [place] 1.023 (1.001-1.035) Urine Protein Negative (Negative) mg/dL Urine Glucose (UA) Negative (Negative) mg/dL Urine Ketones Negative (Negative) mg/dL Ur Blood (Man) Negative (Negative) Urine Nitrate Negative (Negative) Urine Bilirubin Negative (Negative) Urine Urobilinogen 0.2 (<2.0) mg/dL Leukocyte Esterase Rfl Trace H (Negative) KHALIDA/UL Urine RBC 0-2 (0-2) /hpf Urine WBC 0-5 (0-3) /hpf Ur Squamous Epith Cells Occasional (Few) /hpf Urine Bacteria 1+ H /hpf Urine Casts 0-2 POC Urine HCG, Qual Positive (Negative) Blood Type A Positive Antibody Screen Negative Screen TNP Baby's Blood Type TNP Baby's NATACHA TNP Doses of RhIg Required 0 <Norma Vitale PA-C - Last Filed: 12/25/24 15:02> Lab Results 12/25/24 12/25/24 12/25/24 Range/Units 15:09 15:10 15:11 WBC 7.6 (4.5-10.0) K/mm3 RBC 4.38 (4.2-5.4) M/mm3 Hgb 13.2 (12.0-15.0) g/dL Hct 39.3 (37.0-47.0) % MCV 89.7 (80-100) fl MCH 30.1 (26-34) pg MCHC 33.6 (32-36) g/dl RDW 12.5 (11.5-14.5) % Plt Count 166 (150-375) k/mm3 MPV 11.1 H (7.4-10.4) fl Immature Gran % (Auto) 0.4 (0-0.5) % Neut % (Auto) 56.2 (45.5-73.1) % Lymph % (Auto) 31.2 (18.3-44.2) % Lee % (Auto) 10.1 H (2.6-8.5) % Eos % (Auto) 2.0 (0-4.4) % Baso % (Auto) 0.1 L (0.2-1.2) % Lymph # (Auto) 2.36 (0.9-3.2) K/mm3 Lee # (Auto) 0.8 H (0.1-0.6) K/mm3 Eos # (Auto) 0.2 (0-0.3) K/mm3 Baso # (Auto) 0.0 (0.0-0.1) K/mm3 Abs Immat Gran (auto) 0.03 (0.00-0.031) K/mm3 Absolute Neuts (auto) 4.3 (1.3-6.7) K/mm3 Absolute Nucleated RBC 0.000 (0.0-0.012) K/mm3 Nucleated RBC % 0.0 (0.0-0.2) % PT 13.8 (11.1-14.7) Seconds INR 1.1 APTT 34.8 (22.3-36.8) Seconds Sodium 135 L (137-145) mmol/L Potassium 3.9 (3.4-5.0) mmol/L Chloride 102 (98-107) mmol/L Carbon Dioxide 24 (22-30) mmol/L Anion Gap 9 (4-12) mmol/L BUN 11 (7-17) mg/dL Creatinine 0.53 L (0.7-1.0) mg/dL Estim Creat Clear Calc 112 ml/min Estimated GFR > 60 (59 - ) Glucose 93 (65-110) mg/dL Calcium 9.0 (8.4-10.2) mg/dL Total Bilirubin 0.5 (0.2-1.3) mg/dL AST 20 (14-36) U/L ALT 24 (6-35) U/L Alkaline Phosphatase 35 L (38-126) U/L Total Protein 7.1 (6.3-8.2) g/dL Albumin 4.3 (3.5-5.1) g/dL Beta HCG, Quant 48611.00 mIU/ML Urine Color Yellow (Yellow) Urine Appearance Clear (Clear) Urine pH 7.5 (5.0-9.0) Ur Specific [place] 1.023 (1.001-1.035) Urine Protein Negative (Negative) mg/dL Urine Glucose (UA) Negative (Negative) mg/dL Urine Ketones Negative (Negative) mg/dL Ur Blood (Man) Negative (Negative) Urine Nitrate Negative (Negative) Urine Bilirubin Negative (Negative) Urine Urobilinogen 0.2 (<2.0) mg/dL Leukocyte Esterase Rfl Trace H (Negative) KHALIDA/UL Urine RBC 0-2 (0-2) /hpf Urine WBC 0-5 (0-3) /hpf Ur Squamous Epith Cells Occasional (Few) /hpf Urine Bacteria 1+ H /hpf Urine Casts 0-2 POC Urine HCG, Qual Positive (Negative) Blood Type A Positive Antibody Screen Negative Screen TNP Baby's Blood Type TNP Baby's NATACHA TNP Doses of RhIg Required 0 <Boris Parada MD - Last Filed: 12/25/24 22:37> Imaging Data Attestation: I personally reviewed and interpreted this imaging study as follows: <Boris Parada MD - Last Filed: 12/25/24 22:37> Radiologist's impression: Impressions Obstetrics Ultrasound 12/25/24 16:42 IMPRESSION: 1. Single living fetus with heart rate of 114 bpm. 2. Gestational age by ultrasound of 6 weeks 4 day(s) +/- 4 day(s) with ultrasound estimated date of delivery (MAURO) of 08/16/2025. 3. Small subchorionic hematoma. <Boris Parada MD - Last Filed: 12/25/24 22:37> Discharge Plan Discharge Clinical Impression: Syncope, Subchorionic hematoma, UTI (urinary tract infection) <Norma Vitale PA-C - Last Filed: 12/25/24 15:02> Patient Disposition: Home <JUAN R Hawkins Last Filed: 12/25/24 15:02> Condition: Stable <JUAN R Hawkins Last Filed: 12/25/24 15:02> Instructions: Antibiotic Form, Urinary Tract Infection in (ED), Subchorionic Hemorrhage (ED) <JUAN R Hawkins Last Filed: 12/25/24 15:02> Additional Instructions: Take progesterone, aspirin, and keflex as prescribed. Follow up with Dr. Car on Wednesday as scheduled. Return to the ED for new or worsening symptoms. <JUAN R Hawkins Last Filed: 12/25/24 15:02> Patient Language: Citizen Of [place] <JUAN R Hawkins Last Filed: 12/25/24 15:02> Prescriptions: New progesterone micronized [Prometrium] 200 mg capsule 200 mg PO HS 21 Days Qty: 21 0RF Rx Instructions: off 7 days; repeat cycle cephalexin 500 mg capsule 500 mg PO Q12H 7 Days Qty: 14 0RF aspirin 81 mg tablet 81 mg PO DAILY Qty: 30 0RF <JUAN R Hawkins Last Filed: 12/25/24 15:02> Follow-up/Referrals: Sheldon,Jessie Araujo APRN [Primary Care Provider, Unknown] <JUAN R Hawkins Last Filed: 12/25/24 15:02>
[2024-12-25 15:12] LABS: BEDSIDEPREGUCG Positive (Negative)
--- OUTSIDE RECORDS SUMMARY | 2024-12-25 15:13 | XMS_ITS | Encounter Summary ---
Author Organization [facility] Healthcare Address [address] [place] [address] Care Team Providers Care Director Correctional Agency Name Role Phone Saira Leal MD Unavailable [phone] Jessie Chung NP Primary Care Provider [phone] Encounter Details Date Type Department Care Team (Late st Contact Info) Description 11/17/2024 Results Follow-Up [facility] Medical Group Primary Care at [address] [address] Jessie Chung NP [address] [place] [address] [address] [place] [address] Thyroid Function Anderson, Hepatitis C antibody Blood, CBC with auto differential, Additional followed-up results: 5 Social History Tobacco Use Types Packs/Day Years Used Date Smoking Tobacco: Some Days Cigarettes 0.3 5.4 Started: 10/16/2016 Vaping Smokeless Tobacco: Never Comments:trying to quit Alcohol Use Standard Drinks/Week Comments Yes 0 (1 standard drink = 0.6 oz pur e alcohol) PHQ-2 Answer Date Recorded PHQ-2 Total Score (If total score is 3 or more points, staff should administer the PHQ-9) 0 11/14/2024 AUDIT-C Answer Date Recorded Q1: How often do you have a drink containing alc ohol? Monthly or less 11/14/2024 Q2: How many drinks containi ng alcohol do you have on a typical day when you are drinking? 1 or 2 11/14/2024 Q3: How often do you have si x or more drinks on one occasion? Never 11/14/2024 Comments No Sex and Gender Information Value Date Recorded Sex Assigned at Not on file Legal Sex Female 12:04 PM CDT Gender Identity Not on file Sexual Orientation Not on file documented as of this encounter Plan of Treatment Not on file documented as of this encounter Visit Diagnoses Not on filedocumented in this encounter Care Teams Director Correctional Agency Relationship Specialty Start Date End Date Jessie Chung NP [address] [facility] [address] [place] [address] PCP - General Internal Medicine 11/14/24 Saira Leal MD Consulting Physician Obstetrics and Gynecology 01/18/20 documented as of this encounter
--- OUTSIDE RECORDS SUMMARY | 2024-12-25 15:13 | XMS_ITS | Encounter Summary ---
Author Organization [facility] Address [address] [place] [address] Phone Care Team Providers Care Construction Mgr Name Role Phone Jarad Rasheed MD Unavailable [phone] Darrell Lo MD Primary Care Provider [phone] Encounter Details Date Type Department Care Team (Late st Contact Info) Description 05/09/2024 Telephone [facility] [address] [place] [address] Jarad Rasheed MD [address] [address] Social History Tobacco Use Types Packs/Day Years [...] on file documented as of this encounter Miscellaneous Notes * Telephone Encounter - Elizabeth Live - 05/11/2024 1:26 PM CST Pt scheduled. [employer]IATE * Telephone Encounter - Jarad Rasheed MD - 05/09/2024 3:13 PM CST OV in 4 weeks [employer] C[employer]IATE documented in this encounter Plan of Treatment Upcoming Encounters Date Type Department Care Team (Late st Contact Info) Description 06/29/2025 1:00 PM CDT Office Visit [facility] [address] [place] [address] Jarad Rasheed MD [address] [facility] [address] [place] [address] documented as of this encounter Visit Diagnoses Not on filedocumented in this encounter Care Teams Construction Mgr Relationship Specialty Start Date End Date Darrell Lo MD [address] [place] [address] PCP - General Primary Care 01/21/24 Jarad Rasheed MD [address] [facility] [address] [place] [address] Consulting Physician Urology 01/19/24 documented as of this encounter
--- OUTSIDE RECORDS SUMMARY | 2024-12-25 15:13 | XMS_ITS | Clinical Summary ---
Author Organization [facility] Address [address] [place] [address] Phone Care Team Providers Care Gallery Intern Name Role Phone Jarad Rasheed MD Unavailable [phone] Darrell Lo MD Primary Care Provider [phone] Allergies Active Allergy Reactions Criticality Noted Date Comments Sulfamethoxazole-Trimethopri m Swelling 06/29/2024 Pt states it made her face and lips swell Hydrocodone Swelling 05/12/2024 Latex Swelling Medium 11/08/2019 Burning Medications Omeprazole Magnesium (PriLOSEC OTC) 20 MG Tablet Delayed Response Take 20 mg by mouth daily. Active HYDROcodone-acet aminophen (NORCO) 5-325 MG TabletIndication s:Vaginal mass Take 1 Tablet by mouth every 6 hours as needed for Severe pain. 15 Tablet 05/09/2024 Active Immunizations Immunization Administration Dates Next Due DTAP VACCINE 09/26/2002, 0,1998,05/22,1998 Hepatitis A Vaccine 04/18/2009 Hepatitis B Vaccine 1998,1998,1997 Hib Vaccine,unspecified Formulation 07/07,1998,1998,03/22 Human Papillomavirus (HPV) 9 -valent Vaccine 11/08/2019 Human Papillomavirus Vaccine (HPV), quadrivalent 04/18/2009,02/14/2009 Inactivated Polio Vaccine 07/28/1999,02/1999,1998,03/22 Influenza Vaccine Quadrivalent Nasal 01/07/2012 Influenza, Seasonal, Injecta ble, Undefined 03/13/2018,02/26/2011,02/14/2009,02/08,02/08/2007,01/17/1999 MMR Vaccine 01/17/1999 Meningococcal Vaccine 05/27/2016 TDAP Vaccine 06/13/2022 Varicella Vaccine Live 02/09/2008,01/17/1999 Family History Medical History Relation Name Comments [...] = 0.6 oz pur e alcohol) occassional Sexually Active Control Partners Comments Not Currently None Comments No Sex and Gender Information Value Date Recorded Sex Assigned at Not on file Legal Sex Female 8:38 AM CDT Gender Identity Not on file Sexual Orientation Not on file Last Filed Vital Signs Vital Sign Reading Time Taken Comments Blood Pressure 110/65 06/28/2024 8:27 AM CDT Pulse 76 06/28/2024 8:27 AM CDT Temperature 36.7 C (98 F) 06/28/2024 8:27 AM CDT Respiratory Rate 16 06/28/2024 8:27 AM CDT Oxygen Saturation 100% 06/28/2024 8:27 AM CDT Inhaled Oxygen Concentration - - Weight 51.5 kg (113 lb 8.6 oz) 06/28/2024 7:16 A M CDT Height 160 cm (5' 3) 06/28/2024 7:16 AM CDT Body Mass Index 20.11 06/28/2024 7:16 AM CDT Plan of Treatment Upcoming Encounters Date Type Department Care Team (Late st Contact Info) Description 06/29/2025 1:00 PM CDT [facility] [address] [place] [address] Jarad Rasheed MD [address], [address] [address] Health Maintenance Due Date Last Done Comments Hepatitis C Virus (HCV) Screening 1998 Pap Smear 2019 Influenza Immunization (#1) 11/06/2024/0 08/2018, 01/07/2012, 02/26/2011, Additional history exists SARS-COV-2 Immunization ( - 2024- season) 2024 DTaP/Tdap/Td Immunization (7 - Td or Tdap) 06/13/2032 06/13/2022, 09/26/2002, 07/28/1999, Additional history exists Respiratory Syncytial Virus (RSV) Immunization (Adult) (1 - 1-dose 75+ series) 2073 Hepatitis B Immunization Completed 999, 1998, 1998 Meningococcal Immunization (ACWY) Completed 05/27/2016 Human Papillomavirus (HPV) Immunization Completed 11/08/2019, 04/18/2009, 02/14/2009 TdaP Immunization Discontinued 06/13/2022 Pneumococcal Immunization Combined Aged Out No longer eligible based on patient's age to complete this topic Rotavirus Immunization Aged Out No lo nger eligible based on patient's age to complete this topic Insurance Care Teams Gallery Intern Relationship Specialty Start Date End Date Darrell Lo MD [address] [place] [address] PCP - General Primary Care 01/21/24 Jarad Rasheed MD [address] [facility], [address] [address] Consulting Physician Urology 01/19/24
--- OUTSIDE RECORDS SUMMARY | 2024-12-25 15:13 | XMS_ITS | Encounter Summary ---
Author Organization [facility] Healthcare Address [address] [place] [id number] Care Team Providers Care Incident Engineer Name Role Phone Saira Leal MD Unavailable [phone] Jessie Chung NP Primary Care Provider [phone] Reason for Visit * Reason Onset Date Comments Dizziness 12/25/2024 Loss of Consciousness 12/25/2024 Encounter Details Date Type Department Care Team (Late st Contact Info) Description 12/25/[address] [facility] Primary Care at [address] [address] Jessie Chung NP [address] [place] [address] [address] [place] [address] Social History Tobacco Use Types Packs/Day Years [...] encounter Miscellaneous Notes * Telephone Encounter - Dominique Iverson RN - 12/25/2024 11:32 AM CDT Reason for Conversation Dizziness and Loss of Consciousness Background Patient reports that she is currently about 6 weeks ; confirmed through blood test per patient. Patient reports that she is scheduled for ultrasound to confirm next week. Patient reports having morning sickness and vomiting every day. Reports lightheadedness and dizziness intermittently thepast few weeks. Reports that she did try to eat this morning, but was unable to keep it down. Reports this morning while sitting down talking to her brother started feeling very dizzy with room spinning sensation and heart started racing; everything went black. Her brother told her she lost consciousness for a few seconds; he held onto her and kept her upright in the chair. She did not injure herself. She is currently lying down resting; lost of consciousness occurred about one hour ago. Reports at this time still feels shaky, has a headache, mild lightheadedness. Advised patient that she needs to be evaluated in ED and have someone else drive; may need IVF. Patient is agreeable and has someone to take her. Encouraged patient to notify her [employer] office as well. Call back with questions, concerns, follow up. Caller stated understanding. Routed to Jessie Chung NP office as FYNiraj. Patient sent to ED, per protocol. Disposition Go to ED Now Reason for Disposition Fainted > 15 minutes ago and still feels weak or dizzy No Initial Assessment on file. No Additional Information on file. Protocols Used [id number] * Telephone Encounter - Dominique Iverson RN - 12/25/2024 11:24 AM CDT Regarding: Dizzy, fainting, 6wk ----- Message from Wilfredo Fraser sent at 12/25/2024 11:19 AM CDT ----- Symptom Based Call Chief Complaint(s): dizzy, 6 weeks , shakes fainted Duration: a few weeks What type of symptom(s) is the patient experiencing? Red Flag. Is the patient concerned they are experiencing a medical emergency requiring an ambulance? No Additional Comments: patient stated she was sitting down and felt very dizzy and fainted,. She's reported that she's felt some mild dizziness the last few weeks but today has been the worse apprx 45 minutes ago Does message need to be routed? Yes-Action Needed documented in this encounter Plan of Treatment Not on file documented as of this encounter Visit Diagnoses Not on filedocumented in this encounter Care Teams Incident Engineer Relationship Specialty Start Date End Date Jessie Chung NP [address] [facility] [address] [place] [address] PCP - General Internal Medicine 11/14/24 Saira Leal MD Consulting Physician Obstetrics and Gynecology 01/18/20 documented as of this encounter
--- OUTSIDE RECORDS SUMMARY | 2024-12-25 15:13 | XMS_ITS | Clinical Summary ---
Author Organization [facility] Office Address [address] [place], [place] [address] [address] Care Team Providers Care Pharmacy Informatics Specialist Name Role Phone Darrell Melara DO Primary Care Provider [phone] Allergies Active Allergy Reactions Criticality Noted Date [...] on file Legal Sex Female 5:42 AM LEGAL ARBITRATOR Gender Identity Not on file Sexual Orientation Not on file Last Filed Vital Signs Vital Sign Reading Time Taken Comments Blood Pressure 104/64 05/10/2019 12:23 PM LEGAL ARBITRATOR Pulse 72 05/10/2019 12:23 PM LEGAL ARBITRATOR Temperature 36.5 C (97.7 F) 05/10/2019 12:23 PM LEGAL ARBITRATOR Respiratory Rate 18 09/01/2018 7:00 PM CDT Oxygen Saturation - - Inhaled Oxygen Concentration - - Weight 59.3 kg (130 lb 12.8 oz) 020 12:23 PM LEGAL ARBITRATOR Height 157.5 cm (5' 2) 05/10/2019 12:2 3 PM LEGAL ARBITRATOR Body Mass Index 23.92 05/10/2019 12:23 PM LEGAL ARBITRATOR Plan of Treatment Health Maintenance Due Date Last Done Comments DTAP/TDAP/TD VACCINES (5 - Tdap) 2009 07/28/1999, 1998, 1998, Additional history exists HPV VACCINES (3 - 2-dose series) 08/15/2009 04/18/19 10, 02/14/2009 CERVICAL CANCER SCREENING 2019 HPV/Cotest (21-29) 2019 PAP SMEAR 2019 INFLUENZA VACCINE (#1) 2024 , 02/14/2009, 02/09/2008, Additional history exists HEPATITIS B VACCINES Completed 1998, 1998, 1998 Care Teams Pharmacy Informatics Specialist Relationship Specialty Start Date End Date Darrell Melara DO PCP - General 08/18/08
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
[2024-12-25 15:23] LABS: Hematocrit 39.3 % (37.0-47.0); Hemoglobin 13.2 g/dL (12.0-15.0); Immature Granulocyte Percent A 0.4 % (0-0.5); Lymphocytes Absolute Auto 2.36 K/mm3 (0.9-3.2); Mean Corpuscular HGB Conc 33.6 g/dl (32-36); Mean Corpuscular Hemoglobin 30.1 pg (26-34); Mean Corpuscular Volume 89.7 fl (80-100); Nucleated Red Blood Cells Absolute Auto 0.000 K/mm3 (0.0-0.012); Nucleated Red Blood Cells Perc 0.0 % (0.0-0.2); Platelet Count Result 166 k/mm3 (150-375); Red Blood Count 4.38 M/mm3 (4.2-5.4); White Blood Count 7.6 K/mm3 (4.5-10.0)
[2024-12-25 15:30] LABS: Alanine Aminotransferase 24 U/L (6-35); Albumin Level 4.3 g/dL (3.5-5.1); Alkaline Phosphatase 35 U/L (38-126); Anion Gap 9 mmol/L (4-12); Aspartate Amino Transferase 20 U/L (14-36); Bilirubin,Total 0.5 mg/dL (0.2-1.3); Blood Urea Nitrogen 11 mg/dL (7-17); Calcium 9.0 mg/dL (8.4-10.2); Carbon Dioxide 24 mmol/L (22-30); Chloride 102 mmol/L (98-107); Estimated CRCL calculation 112 ml/min; Estimated Glomerular Filt Rate > 60; Glucose 93 mg/dL (65-110); Potassium 3.9 mmol/L (3.4-5.0); Sodium 135 mmol/L (137-145); Total Protein 7.1 g/dL (6.3-8.2)
[2024-12-25 15:31] LABS: INR 1.1; Partial Thromboplastin Time 34.8 Seconds (22.3-36.8); Prothrombin Time 13.8 Seconds (11.1-14.7)
[2024-12-25 15:32] LABS: Add Urine Microscopic? YES; Appearance Urine Clear (Clear); Glucose Urine UA Negative (Negative); Leukocyte Esterase Ur Trace LEU/UL (Negative); Nitrate Urine Negative (Negative); Non Pathogenic Casts 0-2; Specific Grav Ur 1.023 (1.001-1.035)
[2024-12-25 16:11] LABS: Beta HCG Quantitative 44589.00 mIU/ML
[2024-12-25 17:00] VITALS: BP 108/70; PULSE 64; RESP 11; O2SAT 100
[2024-12-25 17:06] VITALS: BP 109/66; PULSE 56
[2024-12-25 17:07] VITALS: BP 113/68; BP 124/71; PULSE 54; PULSE 63
[2024-12-25 17:50] VITALS: BP 109/79; PULSE 59; RESP 18; O2SAT 100
--- OUTSIDE RECORDS SUMMARY | 2024-12-25 18:42 | XMS_ITS | Clinical Summary ---
Author Organization [facility] Office Address [address] [place], [place] [address] [address] Care Team Providers Care Nuclear Waste Management Engineer Name Role Phone Darrell Melara DO Primary Care Provider [phone] Allergies Active Allergy Reactions Criticality Noted Date [...] on file Legal Sex Female 5:42 AM WEB PUBLISHER Gender Identity Not on file Sexual Orientation Not on file Last Filed Vital Signs Vital Sign Reading Time Taken Comments Blood Pressure 104/64 05/10/2019 12:23 PM WEB PUBLISHER Pulse 72 05/10/2019 12:23 PM WEB PUBLISHER Temperature 36.5 C (97.7 F) 05/10/2019 12:23 PM WEB PUBLISHER Respiratory Rate 18 09/01/2018 7:00 PM CDT Oxygen Saturation - - Inhaled Oxygen Concentration - - Weight 59.3 kg (130 lb 12.8 oz) 020 12:23 PM WEB PUBLISHER Height 157.5 cm (5' 2) 05/10/2019 12:2 3 PM WEB PUBLISHER Body Mass Index 23.92 05/10/2019 12:23 PM WEB PUBLISHER Plan of Treatment Health Maintenance Due Date Last Done Comments DTAP/TDAP/TD VACCINES (5 - Tdap) 2009 07/28/1999, 1998, 1998, Additional history exists HPV VACCINES (3 - 2-dose series) 08/15/2009 04/18/19 10, 02/14/2009 CERVICAL CANCER SCREENING 2019 HPV/Cotest (21-29) 2019 PAP SMEAR 2019 INFLUENZA VACCINE (#1) 2024 , 02/14/2009, 02/09/2008, Additional history exists HEPATITIS B VACCINES Completed 1998, 1998, 1998 Care Teams Nuclear Waste Management Engineer Relationship Specialty Start Date End Date Darrell Melara DO PCP - General 08/18/08
--- OUTSIDE RECORDS SUMMARY | 2024-12-25 18:42 | XMS_ITS | Clinical Summary ---
Author Organization [facility] Address [address] [place] [address] Phone Care Team Providers Care Solar Electric Installer Name Role Phone Jarad Rasheed MD Unavailable [phone] Darrell Lo MD Primary Care Provider [phone] Allergies Active Allergy Reactions Criticality Noted Date [...] [facility] [address] [place] [address] Jarad Rahseed MD [address], [address] [address] Health Maintenance Due Date Last Done Comments [...] to complete this topic Insurance Care Teams Solar Electric Installer Relationship Specialty Start Date End Date Darrell Lo MD [address] [place] [address] PCP - General Primary Care 01/21/24 Jarad Rasheed MD [address] [facility], [address] [address] Consulting Physician Urology 01/19/24
--- OUTSIDE RECORDS SUMMARY | 2024-12-25 18:42 | XMS_ITS | Clinical Summary ---
Author Organization [facility] [id number] Address [address] [place] [address] Care Team Providers Care Welding Machine Operator Electron Beam Name Role Phone Saira Leal MD Unavailable [phone] Jessie Chung NP Primary Care Provider Allergies Active Allergy Reactions [...] 0 Assessment & Plan (01/18/2020 12:10 PM COAT CHECKER): Patient reports depression and anxiety is chronic [...] 11/14/2024 Assessment & Plan (01/18/2020 12:10 PM COAT CHECKER): Continue Wellbutrin for smoking cessation. Declines patches [...] referred her to see counselor or social services director for help. 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, getting certified [...] Department Care Team Description 12/25/2024 Nurse Triage [facility] Primary Care at [address] [address] Jessie Chung NP 11/17/2024 Results Follow-Up [facility] Primary Care at [address] [phone] Jessie Chung NP Thyroid Function Creek, Hepatitis C antibody Blood, CBC with auto differential, Additional followed-up results: 5 11/14/2024 1:30 PM CDT Lab [address] [address] Thyroid disorder screen; Need for hepatitis C screening test; Wellness examination; Fatigue, unspecified type 11/14/2024 12:30 PM CDT Office Visit [facility] Primary Care at [address] [phone] Jessie Chung NP BMI 23.0-23.9, adult (Primary Dx); Wellness examination; Thyroid disorder screen; Fatigue, unspecified type; Need for hepatitis C screening test; Current every day nicotine vaping; Mild episode of recurrent major depressive disorder; Anxiety; Endometriosis; Large tonsils 10/09/2024 Telephone [facility] Cardiology [address] [place] [address] Rohit Kaiser MD from Last 3 Months Immunizations Immunization [...] NP LAB BLOOD ORDERABLES Final Re sult [facility] [address] [facility] Department [place] [address] * Differential, auto (11/14/2024 1:45 PM CDT) Neutrophil abs 2.79 1.50 - 6.50 K/cumm Imm gran abs 0.01 0.00 - 0.10 K/cumm [facility] Lymphocyte abs 2.19 0.80 - 3.30 K/cumm [facility] Monocyte abs 0.56 0.20 - 0.80 K/cumm [facility] Eosinophil abs 0.21 0.00 - 0.50 K/cumm [facility] Basophil abs 0.03 0.00 - 0.10 K/cumm [facility] Neutrophil pct 48.2 % [facility] Comment: Interpretive Data Percent cell count reference ranges are not reported, since discordance with absolute values may lead to misinterpretation of CBC data. Current Interpretive Data was last revised on 2017. Imm gran pct 0.2 % [facility] Comment: Interpretive Data Percent cell count reference ranges are not reported, since discordance with absolute values may lead to misinterpretation of CBC data. Current Interpretive Data was last revised on 2017. Lymphocyte pct 37.8 % [facility] Comment: Interpretive Data Percent cell count reference ranges are not reported, since discordance with absolute values may lead to misinterpretation of CBC data. Current Interpretive Data was last revised on 2017. Monocyte pct 9.7 % [facility] Comment: Interpretive Data Percent cell count reference ranges are not reported, since discordance with absolute values may lead to misinterpretation of CBC data. Current Interpretive Data was last revised on 2017. Eosinophil pct 3.6 % [facility] Comment: Interpretive Data Percent cell count reference ranges are not reported, since discordance with absolute values may lead to misinterpretation of CBC data. Current Interpretive Data was last revised on 2017. Basophil pct 0.5 % [facility] Comment: Interpretive Data Percent cell count reference ranges are not reported, since discordance with absolute values may lead to misinterpretation of CBC data. Current Interpretive Data was last revised on 2017. Blood 11/14/2024 1:45 PM CDT 11/14/2024 6:24 PM CDT Jessie Chung CAR SHAKEOUT OPERATOR LAB BLOOD ORDERABLES Final Re sult Performing Organization Address City/[facility] Co de Phone Number [address] [place] [address] * Thyroid Function [place] (11/14/2024 1:45 PM CDT) Pathologist [facility] TSH 1.71 0.30 - 4.20 mcIUnit/mL Blood 11/14/2024 1:45 PM CDT 11/14/2024 6:24 PM CDT Jessie Sheldon CAR SHAKEOUT OPERATOR LAB BLOOD ORDERABLES Final Re sult Performing Organization Address City/[facility] Co de Phone Number [address] [address] * CBC with auto differential (11/14/2024 1:45 PM CDT) Pathologist [facility] WBC 5.79 3.80 - 9.90 K/cumm Hgb 13.0 11.9 - 15.5 g/dL [facility] Hct 39.4 35.6 - 45.5 % [facility] Plt 169 150 - 400 K/cumm [facility] MPV 11.8 9.1 - 12.3 fL [facility] RBC 4.21 3.90 - 5.20 M/cumm [facility] MCV 93.6 81.3 - 96.4 fL [facility] MCH 30.9 27.1 - 33.3 pg [facility] MCHC 33.0 32.3 - 35.7 g/dL [facility] RDW CV 13.0 11.1 - 14.9 % [facility] RDW SD 44.5 35.7 - 48.1 fL [facility] NRBC abs 0.00 0.00 - 0.01 K/cumm [facility] Blood 11/14/2024 1:45 PM CDT 11/14/2024 6:24 PM CDT LegalGurubryan CAR SHAKEOUT OPERATOR LAB BLOOD ORDERABLES Final Re sult Performing Organization Address [facility] Co de Phone Number [address] [place] [address] * Hepatitis C antibody Blood (11/14/2024 1:45 PM CDT) Pathologist [facility] Hep C Ab Nonreactive Nonreactive Comment: Antibodies [...] OR DERABLES Final Result Performing Organization Address [facility] Co de Phone Number [address] [place] [address] * Vitamin D 25 hydroxy (11/14/2024 1:45 PM CDT) [facility] Vitamin D 25-OH 30.0 30.0 - 80.0 ng/mL Blood 11/14/2024 1:45 PM CDT 11/14/2024 6:24 PM CDT us Jessie Chung NP LAB BLOOD ORDERABLES Final Re sult [facility] [address] [facility] Department [place] [address] * Lipid panel (11/14/2024 1:45 PM CDT) [...] for 8 hours or more?->Yes Jessie Chung CAR SHAKEOUT OPERATOR LAB BLOOD ORDERABLES Final Re sult Performing Organization Address [facility]/ZIP Co de Phone Number [facility] [address] [facility] Department [place] [address] * (ABNORMAL) Comprehensive metabolic panel (11/14/2024 1:45 PM CDT) Sodium 139 135 - 145 mmol/L Potassium, pl 4.1 3.3 - 4.9 mmol/L [facility] Chloride 104 97 - 110 mmol/L [facility] CO2 26 22 - 32 mmol/L [facility] Anion gap 9 2 - 15 mmol/L [facility] BUN 9 6 - 25 mg/dL [facility] Creatinine 0.67 0.60 - 1.10 mg/dL [facility] Glucose 103 70 - 199 mg/dL [facility] Comment: Interpretive Data Fasting glucose >/= 126 [...] 2022. Calcium 9.2 8.5 - 10.3 mg/dL [facility] Bilirubin, total 0.4 0.1 - 1.2 mg/dL [facility] Protein, pl 6.8 6.5 - 8.5 g/dL [facility] Albumin 4.4 3.5 - 5.0 g/dL [facility] Alk phos 37(L) 40 - 130 Units/L [facility] ALT 22 7 - 45 Units/L [facility] AST 22 10 - 45 Units/L [facility] Blood 11/14/2024 1:45 PM CDT 11/14/2024 6:24 PM CDT Jessie Chung CAR SHAKEOUT OPERATOR LAB BLOOD ORDERABLES Final Re sult [facility] [address] [facility] Department [place] [address] * (ABNORMAL) HM PAP SMEAR WITH HPV (11/08/2019) Scribed Pap Smear w/HPV Abnormal us Saira Leal MD HEALTH MAINTENANCE Final Re sult from Last 3 Months or Most Recently Relevant to Health Maintenance Insurance [employer] [facility] [place] Care Teams Welding Machine Operator Electron Beam Relationship Specialty Start Date End Date Jessie Chung NP [address] [facility] [address] [place] [address] PCP - General Internal Medicine 11/14/24 Saira Leal MD Consulting Physician Obstetrics and Gynecology 01/18/20
--- OUTSIDE RECORDS SUMMARY | 2024-12-25 18:42 | XMS_ITS | Encounter Summary ---
Author Organization [facility] Healthcare Address [address] [place] [address] Care Team Providers Care Roller Helper Name Role Phone Saira Leal MD Unavailable [phone] Jessie Chung NP Primary Care Provider [phone] Reason for Visit * Reason Onset Date Comments Dizziness 12/25/2024 Loss of Consciousness 12/25/2024 Encounter Details Date Type Department Care Team (Late st Contact Info) Description 12/25/2024 Nurse Triage [facility] Primary Care at [address] [phone] Jessie Chung NP [address] [place] [address] [address] [place] [address] Social History Tobacco Use Types [...] take her. Encouraged patient to notify her ob-park maintenance technician office as well. Call back with questions, concerns, follow up. Caller stated understanding. Routed to Jessie Chung NP office as FYNiraj. Patient sent to ED, per protocol. Disposition Go to ED Now Reason for Disposition Fainted > 15 minutes ago and still feels weak or dizzy No Initial Assessment on file. No Additional Information on file. Protocols Used [id number] * Telephone Encounter - Dominique Iverson RN [...] on filedocumented in this encounter Care Teams Roller Helper Relationship Specialty Start Date End Date Jessie Chung NP [address] [facility] [address] [place] [address] PCP - General Internal Medicine 11/14/24 Saira Leal MD Consulting Physician Obstetrics and Gynecology 01/18/20 documented as of this encounter
--- OUTSIDE RECORDS SUMMARY | 2024-12-25 18:42 | XMS_ITS | Encounter Summary ---
Author Organization [facility] Healthcare Address [address] [place] [address] Care Team Providers Care Park Services Specialist Name Role Phone Saira Leal MD Unavailable [phone] Jessie Chung NP Primary Care Provider [phone] Encounter Details Date Type Department Care Team (Late st Contact Info) Description 11/17/2024 Results Follow-Up [facility] Primary Care at [address] [phone] Jessie Chung NP [address] [place] [address] [address] [place] [address] Thyroid Function [place], Hepatitis C antibody Blood, CBC with auto [...] on filedocumented in this encounter Care Teams Park Services Specialist Relationship Specialty Start Date End Date Jessie Chung NP [address] [facility] [address] [place] [address] PCP - General Internal Medicine 11/14/24 Saira Leal MD Consulting Physician Obstetrics and Gynecology 01/18/20 documented as of this encounter
--- OUTSIDE RECORDS SUMMARY | 2024-12-25 18:42 | XMS_ITS | Encounter Summary ---
Author Organization [facility] Address [address] [place] [address] Phone Care Team Providers Care Superintendent Plant Name Role Phone Jarad Rasheed MD Unavailable [phone] Darrell Lo MD Primary Care Provider [phone] Encounter Details Date Type Department Care Team (Late st Contact Info) Description 05/09/2024 Telephone [facility] [address] Jarad Rasheed MD #[address] [address] Social History Tobacco Use Types [...] - 05/11/2024 1:26 PM CST Pt scheduled. PULLER * Telephone Encounter - Jarad Rasheed MD - 05/09/2024 3:13 PM CST OV in 4 weeks PULLER documented in this encounter Plan of Treatment Upcoming Encounters Date Type Department Care Team (Late st Contact Info) Description 06/29/2025 1:00 PM CDT Office Visit [facility] #2 [place] [address] Jarad Rasheed MD #[address] [facility] [address] [place] [address] documented as of this encounter Visit Diagnoses Not on filedocumented in this encounter Care Teams Superintendent Plant Relationship Specialty Start Date End Date Darrell Lo MD [address] [place] [address] PCP - General Primary Care 01/21/24 Jarad Rasheed MD #[address] [facility] [address] [place] [address] Consulting Physician Urology 01/19/24 documented as of this encounter
== END 2024-12-25 18:01 | disposition home or self-care (01) ==
PROVIDERS: Physician Assistant; Emergency Provider Student in an Organized Health Care Education/Training Program; PCP Nurse Practitioner
DX: O26.891 Other specified pregnancy related conditions, first trimester (principal); R55 Syncope and collapse; O36.8910 Maternal care for other specified fetal problems, first trimester, not applicable or unspecified; Z3A.01 Less than 8 weeks gestation of pregnancy; O23.41 Unspecified infection of urinary tract in pregnancy, first trimester; N39.0 Urinary tract infection, site not specified
CPT/HCPCS: 36415; 76801; 76817; 80053; 81001; 81025; 84702; 85025; 85461; 85610; 85730; 86850; 86900; 86901; 99284

== ENCOUNTER 2025-02-19 12:27 | Emergency (ER) | payer BC, MEDICAID, SELFPAY ==
[2025-02-19 12:54] VITALS: BP 113/70; PULSE 64; RESP 16; TEMP 36.7; O2SAT 100
--- NOTE | 2025-02-19 14:03 | ED.URI ---
HPI - URI/Sore Throat General Chief Complaint: Upper Respiratory Infection Stated Complaint: SINUS/FEVER/CHILLS/COUGH/14 WEEKS Time Seen by Provider: 02/19/25 13:50 Source: patient and RN notes reviewed Mode of arrival: ambulatory Limitations: no limitations History of Present Illness HPI Narrative: 25-year-old female patient presents Express Care complaining of upper respiratory symptoms for 10 days. She reports she is 14 weeks . Patient reports cough, congestion, sinus pressure, mucopurulent nasal drainage that is not getting much better. Patient has been taking Tylenol with symptoms. Patient has no could complaints. Patient denies any chest pain, difficulty breathing, fevers, vomiting, or any other symptoms. Related Data Home Medications ?Medication ?Instructions ?Recorded ?Confirmed ?Last Taken ?Type 02/19/25 Unknown History Allergies Allergy/AdvReac Type Severity Reaction Status Date / Time sulfamethoxazole (From Allergy Hives Verified 02/19/25 12:30 Bactrim) tioconazole (From Monistat 1 Allergy Swelling Verified 02/19/25 12:30 (tioconazole)) trimethoprim (From Bactrim) Allergy Hives Verified 02/19/25 12:30 latex AdvReac Intermediate Hives Verified 02/19/25 12:30 Review of Systems Review of Systems: CONSTITUTIONAL: Denies fever, chills, or sweats. EYES: Denies visual changes, redness, or discharge. ENT: Denies rhinorrhea, congestion, sore throat, or otalgia. Positive for congestion, mucopurulent nasal drainage, sinus pressure. CARDIOVASCULAR: Denies chest pain, palpitations, or edema. RESPIRATORY: Positive for cough. Negative for wheezing or dyspnea. GASTROINTESTINAL: Denies abdominal pain, nausea, vomiting, or diarrhea. GENITOURINARY: Denies dysuria, vaginal bleeding, or hematuria. SKIN: Denies rash or itching. MUSCULOSKELETAL: Denies back pain, joint pain, or myalgia. NEUROLOGIC: Denies headache, numbness, or weakness. PSYCHIATRIC: Denies anxiety or depression. All other systems reviewed are negative, except as documented in HPI. [facility] Past Medical History Medical History Bicuspid aortic valve Surgical History Surgical History No pertinent past surgical history Social History Social History Smoking packs per day: 0.5 Smoking cigarettes per day: 10.0 Years smoked: 7 Smoking pack-years: 3.50 Smoking status: Former smoker Tobacco type: cigarettes Smoking end date: 05/12/23 Alcohol intake: current Drinks per week: 3 Substance use: current Substance use type: marijuana Living arrangements: with family Additional living arrangements comments: BOYFRIEND Gender identity (if verbalized by the patient): Female Spiritual care concerns: No Comments At the time of my signature, I reviewed and agree with the nursing past medical, surgical, social, and family history. There is no relevant family history pertinent to the patient complaint. Exam Narrative: GENERAL: This is a well-nourished, well-developed adult, in no apparent distress. They are non ill-appearing, nontoxic appearing. HEAD: normocephalic, atraumatic. EYES: Sclera clear/white. Conjunctiva normal. Vision is grossly intact. Extraocular movements intact EARS: External ears normal, auditory canals clear and without drainage, TMs normal without perforation. Hearing grossly intact. NOSE: External nose normal with no obvious nasal discharge, nasal turbinates erythematous with exudate, no rhinorrhea. THROAT: Mucous membranes moist, posterior pharynx erythematous with exudate postnasal drip. Uvula midline. NECK: Neck supple, non-tender without lymphadenopathy, masses or thyromegaly. CARDIOVASCULAR: Regular rate and rhythm without murmurs, gallops, or rubs. RESPIRATORY: Clear to auscultation. Breath sounds equal bilaterally. No wheezes, rales, or rhonchi. SKIN: warm, Dry, intact with no suspicious lesions or rash, good texture and turgor. NEURO: awake, alert, and oriented to person, place and time. There were no obvious focal neurologic abnormalities. EXTREMITIES: No joint tenderness, effusion, or edema noted. BACK: Nontender without deformity. No CVA tenderness. Course Course Level of Care: Express Care Visit Vital Signs Vital signs: Vital Signs Temperature 98.0 F 02/19/25 12:54 Pulse Rate 64 02/19/25 12:54 Respiratory Rate 16 02/19/25 12:54 Blood Pressure 113/70 02/19/25 12:54 Pulse Oximetry 100 02/19/25 12:54 Oxygen Delivery Room Air 02/19/25 12:54 Temperature 98.0 F 02/19/25 12:54 Pulse Rate 64 02/19/25 12:54 Respiratory Rate 16 02/19/25 12:54 Blood Pressure 113/70 02/19/25 12:54 Pulse Oximetry 100 02/19/25 12:54 Oxygen Delivery Room Air 02/19/25 12:54 MDM MDM Narrative Medical decision making narrative: Given length of symptoms patient likely has bacterial sinusitis. Will treat with amoxicillin. Discussed supportive care and medications she may take while . Discussed physical exam findings. Advised supportive measures and signs/symptoms to go to the ER. Pt is appropriate for outpt treatment and f/u. Differential Diagnosis Differential Diagnosis: Differential diagnostic considerations for upper respiratory infection include upper respiratory infection, croup, otitis media, sinusitis, viral infection, bronchitis, influenza, pharyngitis, strep, uvulitis. Critical Care Time Critical Care Time Critical Care Time: No Discharge Plan Discharge Clinical Impression: Sinusitis Qualifiers: Sinusitis location: unspecified location Chronicity: acute Recurrence: non-recurrent Qualified Code(s): J01.90 - Acute sinusitis, unspecified Patient Disposition: Home Condition: Stable Instructions: Antibiotic Form, Sinusitis (ED) Additional Instructions: Take the antibiotics as directed and complete the course even if you start to feel better. You may use a Neti pot saline rinse 3 times a day with lukewarm distilled water Continue to take Tylenol as needed for pain or fevers. Use a humidifier or vaporizer at night. Drink plenty of water. 8-10 glasses per day. Use flonase 2 times per day for 5 days then as needed Follow up with Primary provider in 3-5 days Please go to the ER if he develops any difficulty breathing, chest pain, vomiting a worsening symptoms, or any other concerns Patient Language: Lithuanian Prescriptions: New amoxicillin 875 mg tablet 875 mg PO Q12H 7 Days Qty: 14 0RF No Action Follow-up/Referrals: Sheldon,Jessie Araujo APRN [Primary Care Provider, Unknown] Time of Disposition: 14:01
== END 2025-02-19 14:06 | disposition home or self-care (01) ==
PROVIDERS: PCP Nurse Practitioner
DX: O99.512 Diseases of the respiratory system complicating pregnancy, second trimester (principal); J01.90 Acute sinusitis, unspecified; Z3A.14 14 weeks gestation of pregnancy; O99.322 Drug use complicating pregnancy, second trimester; F12.90 Cannabis use, unspecified, uncomplicated; O99.412 Diseases of the circulatory system complicating pregnancy, second trimester; Q23.81 Bicuspid aortic valve; Z87.891 Personal history of nicotine dependence
CPT/HCPCS: 99213; G0463